=== PATIENT | male | born 1940 | race Caucasian/White ===

== ENCOUNTER 2017-08-17 15:16 | Inpatient (IN) | payer OTHER, MEDICARE ==
[~2017-08-17] VITALS: Ht 182.9 cm; Wt 58.5 kg
[2017-08-17] VITALS (14 sets, daily range): BP systolic 90–191; BP diastolic 56–86; PULSE 77–112; RESP 15–26; TEMP 97.7–98.7; O2SAT 93–100
[2017-08-17] MEDS ORDERED: IOHEXOL 350 MG/ML 10 ML VIAL (for RAD DIAG) IVCONTRAST ONE (15:17)
[2017-08-17] MEDS ORDERED: ETOMIDATE 40 MG/20 ML VIAL ONE (15:19)
[2017-08-17] MEDS ORDERED: ETOMIDATE 20 MG/10 ML VIAL ONE (15:20)
[2017-08-17] MEDS ORDERED: ROCURONIUM INJ 50 MG/5 ML VIAL ONE (15:20)
[2017-08-17] MEDS ORDERED: PROPOFOL 1000 MG/100 ML INJ 100 ML ONE (15:20)
[2017-08-17] MEDS ORDERED: LORazepam 2 MG/ML VIAL ONE ×2 (15:33→15:51)
[2017-08-17] MEDS ORDERED: LIDOCAINE HCL 1% PF 30 ML VIAL ONE (15:43)
[2017-08-17] MEDS ORDERED: LIDOCAINE HCL 2% 100 MG/5 ML SYRINGE ONE (15:43)
[2017-08-17 15:46] LABS: BASOPHIL % 0.5 % (0.0-2.0); EOSINOPHIL # 0.2 TH/MM3 (0-0.4); HEMATOCRIT 53.6 % (39.0-51.0); HEMO FLAGS DIFF FINAL; I-STAT POTASSIUM 3.9 MMOL/L (3.5-4.9); LYMPH % 38.4 % (9.0-44.0); LYMPHOCYTE # 3.8 TH/MM3 (1.0-4.8); MEAN CELL VOLUME 90.6 FL (80.0-100.0); MEAN CORPUSCULAR HEMOGLOBIN 27.8 PG (27.0-34.0); MEAN CORPUSCULAR HGB CONC 30.6 % (32.0-36.0); MONO % 9.2 % (0.0-8.0); NEUT % 49.9 % (16.0-70.0); PLATELET COUNT 205 TH/MM3 (150-450); RED BLOOD COUNT 5.91 MIL/MM3 (4.50-5.90); RED CELL DISTRIBUTION WIDTH 16.4 % (11.6-17.2); WHITE BLOOD COUNT 9.9 TH/MM3 (4.0-11.0)
--- NOTE | 2017-08-17 15:48 | RADRPT ---
EXAM DATE/TIME: 08/17/2017 15:26 [facility] COMPARISON: No previous studies available for comparison. INDICATIONS : Stroke alert; right side weakness. RADIATION DOSE: 29.24 CTDIvol (mGy) MEDICAL HISTORY : Non-responsive. SURGICAL HISTORY : Non-responsive. ENCOUNTER: Initial ACUITY: 1 day PAIN SCALE: Non-responsive LOCATION: Cranial TECHNIQUE: Multiple contiguous axial images were obtained of the head. Using automated exposure control and adjustment of the mA and/or kV according to patient size, radiation dose was kept as low as reasonably achievable to obtain optimal diagnostic quality images. DICOM format image data is av ailable electronically for review and comparison. FINDINGS: Old infarct left parietal occipital region and right orbital frontal region. Negative for an acute hemorrhage. There are no extra-axial fluid collections. Posterior fossa is unremarkable. CONCLUSION: 1. Old stroke, negative for an acute hemorrhage. 2. Findings were called to Dr. Healy at 15:40. Ancelmo Pham MD FACR on August 17, 2017 at 15:41 Board Certified Radiologist. This report was verified electronically.
[2017-08-17 15:55] LABS: APTT (PATIENT) 26.8 SEC (24.3-30.1); INTERNATIONAL NORMALIZED RATIO 1.1 RATIO; PROTHROMBIN TIME - PATIENT 11.9 SEC (9.8-11.6)
--- NOTE | 2017-08-17 16:20 | PD ---
HPI . Stroke alert Chief Complaint: Stroke Alert Time Seen by Provider: 15:19 Travel History International Travel<30 days: No Contact w/Intl Traveler<30days: No History of Present Illness HPI This patient presented to us via [facility] as a stroke alert. History is obtained from his . She reports the acute onset of right arm weakness while he was eating lunch at about 12:30. She states that he dropped his for a couple of times. She suggested that he lay down and take a nap which he did. She states that he then had what appeared to be seizure activity. She states that she became concerned and called her son who suggested to her that she call 911. 911 was then called and the patient was subsequently brought to us for further evaluation. The states that he had previous similar symptoms about 3 years ago. He was treated at an outside facility. She states that they told her that he either had a stroke or TIA. He states that he did have seizure activity at that time as well. PFSH Past Medical History AAA: Yes Cardiovascular Problems: Yes High Cholesterol: Yes Cerebrovascular Accident: Yes Coronary Artery Disease: Yes Diabetes: No Dialysis: No Hypertension: Yes Past Surgical History Abdominal Aneurysm Repair: Yes Cardiac Surgery: Yes Coronary Artery Bypass Graft: Yes Social History Alcohol Use: No Tobacco Use: No Allergies-Medications (Allergen,Severity, Reaction): Coded Allergies: No Known Allergies (Unverified , 08/17/17) Narrative Medication Patient's family reports that he stopped taking all medications a couple weeks ago. Review of Systems ROS Limitations: Unresponsive Physical Exam Narrative GENERAL: Patient is obtunded. He does have a gag reflex and his breathing. SKIN: warm/dry. HEAD: Normocephalic. Atraumatic. EYES: Initially had a gaze preference to the right. He subsequently had a seizure while in radiology and had a gaze preference to the left. ENT: No nasal bleeding or discharge. Mucous membranes pink and moist. NECK: Trachea midline. CARDIOVASCULAR: Regular rate and rhythm. RESPIRATORY: No accessory muscle use. Clear to auscultation. Breath sounds equal bilaterally. GASTROINTESTINAL: Abdomen soft. Nontender. Bowel sounds present. Nondistended. MUSCULOSKELETAL: No obvious deformities. NEUROLOGICAL: Obtunded. We have seen some movement of the left side but no movement on the right side. The patient is unable to follow any commands. PSYCHIATRIC: Unable to assess. Data Data Last Documented VS Vital Signs Date Time Temp Pulse Resp B/P (MAP) Pulse Ox O2 Delivery O2 Flow Rate FiO2 08/17/17 15:35 93 Nasal Cannula 3.00 Orders Orders Etomidate Inj (Amidate Inj) (08/17/17 15:19) Propofol 1000 Mg/100 Ml Inj (Diprivan 10 (08/17/17 15:20) Etomidate Inj (Amidate Inj) (08/17/17 15:20) Rocuronium Inj (Zemuron Inj) (08/17/17 15:20) Diet Npo (08/17/17 Dinner) Activity Bed Rest (08/17/17 ) Electrocardiogram (08/17/17 ) I-Stat Creatinine (08/17/17 15:19) I-Stat Profile (08/17/17 15:19) Prothrombin Time / Inr (Pt) (08/17/17 15:19) Act Partial Throm Time (Ptt) (08/17/17 15:19) Complete Blood Count With Diff (08/17/17 15:19) Fibrinogen (08/17/17 15:19) Creatine Kinase (Cpk) (08/17/17 15:19) Troponin I (08/17/17 15:19) Ua Includes Microscopic (08/17/17 15:19) Type And Screen (08/17/17 15:19) Ct Brain W/O Iv Contrast(Rout) (08/17/17 ) Cta Brain W Iv Contrast W 3d (08/17/17 15:19) Cta Neck W Iv Contrast W 3d (08/17/17 15:19) Consult Neurology (08/17/17 ) Blood Glucose (08/17/17 15:19) Ecg Monitoring (08/17/17 15:19) Neuro Checks Q2HX12,Q4H (08/17/17 15:19) Nursing Bedside Swallow Assess .ONCE (08/17/17 15:19) Iv Access Insert/Monitor (08/17/17 15:19) NPO (08/17/17 15:19) Oximetry (08/17/17 15:19) Oxygen Administration (08/17/17 15:19) Resp Oxygen Romeo C Titrat 1-4 L (08/17/17 15:19) Cath For Specimen (08/17/17 15:19) Lorazepam Inj (Ativan Inj) (08/17/17 15:33) Lidocaine Pf 1% Inj (Xylocaine-Mpf 1% In (08/17/17 15:43) Lidocaine 2% Inj (Xylocaine 2% Inj) (08/17/17 15:43) Lorazepam Inj (Ativan Inj) (08/17/17 15:51) Portable Eeg (08/17/17 ) Iohexol 350 Inj (Omnipaque 350 Inj) (08/17/17 15:17) Admit Order (Ed Use Only) (08/17/17 16:39) Labs Laboratory Tests Test 08/17/17 15:23 White Blood Count 9.9 TH/MM3 Red Blood Count 5.91 MIL/MM3 Hemoglobin 16.4 GM/DL Bedside Hemoglobin 17.7 G/DL Hematocrit 53.6 % Bedside Hematocrit 52.0 % Mean Corpuscular Volume 90.6 FL Mean Corpuscular Hemoglobin 27.8 PG Mean Corpuscular Hemoglobin Concent 30.6 % Red Cell Distribution Width 16.4 % Platelet Count 205 TH/MM3 Mean Platelet Volume 8.8 FL Neutrophils (%) (Auto) 49.9 % Lymphocytes (%) (Auto) 38.4 % Monocytes (%) (Auto) 9.2 % Eosinophils (%) (Auto) 2.0 % Basophils (%) (Auto) 0.5 % Neutrophils # (Auto) 5.0 TH/MM3 Lymphocytes # (Auto) 3.8 TH/MM3 Monocytes # (Auto) 0.9 TH/MM3 Eosinophils # (Auto) 0.2 TH/MM3 Basophils # (Auto) 0.0 TH/MM3 CBC Comment DIFF FINAL Differential Comment Prothrombin Time 11.9 SEC Prothromb Time International Ratio 1.1 RATIO Activated Partial Thromboplast Time 26.8 SEC Fibrinogen 374 mg/dL Bedside Sodium 144 MMOL/L Bedside Potassium 3.9 MMOL/L Bedside Chloride 112 MMOL/L Bedside Blood Urea Nitrogen 34 MG/DL Bedside Creatinine 1.8 MG/DL Bedside Glucose 137 MG/DL Total Creatine Kinase 118 U/L Troponin I 0.02 NG/ML [facility] Medical Decision Making Medical Screen Exam Complete: Yes Emergency Medical Condition: Yes Interpretation(s) EKG shows sinus tachycardia with a rate of 112. He has LVH. He has ST segment depression in the lateral leads. Differential Diagnosis Differential diagnosis includes but is not limited to TIA, CVA, brain tumor, migraine, anxiety Narrative Course This patient presented to us as a stroke alert. Our initial NIH stroke score was > 25. Dr. Mathews was consulted shortly after the patient's arrival. She was here seeing the patient with me shortly thereafter. She does not recommend TPA. CODE STATUS was discussed with the patient's . She states that she is unaware of her 's wishes. She asked us to proceed with aggressive management. The patient had a seizure in CT. The patient became cyanotic during the seizure. He then had sonorous respirations. The decision was made to intubate the patient at that time. CT head>>Old infarct left parietal occipital region and right orbital frontal region. Negative for an acute hemorrhage. CBC Diagram 08/17/17 15:23 I-STAT chemistries are remarkable only for a BUN of 34 and a creatinine of 1.8. Troponin is 0.02. Coags are normal. Critical Care Narrative Aggregate critical care time was 60 minutes. Time to perform other separately billable procedures was not included in the critical care time. My time did not include minutes spent treating any other patients simultaneously or on activities that did not directly contribute to the patient's treatment. The services I provided to this patient were to treat and/or prevent clinically significant deterioration due to strep throat I provided critical care services requiring my management, as noted below: Chart data review, documentation time, medication orders and management, vital sign assessments/reviewing monitor data, ordering and reviewing lab tests, ordering and interpreting/reviewing x-rays and diagnostic studies, care of the patient and discussion of the patient with the admitting physicians Physician Communication Physician Communication Dr. Mathews and Dr. Long Diagnosis Primary Impression: Stroke Qualified Codes: I63.9 - Cerebral infarction, unspecified Admitting Information Admitting Physician Requests: Admit Condition: Serious Cata Healy MD Aug 17, 2017 16:20
--- NOTE | 2017-08-17 16:34 | PD ---
Physical Exam Date Seen by Provider: Aug 17, 2017 Time Seen by Provider: 13:45 Narrative 76-year-old male obtunded, wears dentures. After the risks and benefits were discussed with his the following procedure was performed: INTUBATION: The patient was put in supine position for the procedure. The lower dentures were loose and removed. The upper dentures remained in place. Rapid sequence intubation was initiated by Dr. Molina using 100 milligrams lidocaine, 20 milligrams of etomidate IV and 92 milligrams of succinylcholine IV. The patient was intubated with a 7.5 cuffed endotracheal tube and 22cm at the teeth. Tube placement was confirmed by visualization of the tube and balloon passing through the cords, capnometry and subsequent chest x-ray. Breath sounds were equal and well aerated bilaterally postintubation. No breath sounds over stomach. Patient tolerated procedure well. Data Data Last Documented VS Vital Signs Date Time Temp Pulse Resp B/P (MAP) Pulse Ox O2 Delivery O2 Flow Rate FiO2 08/17/17 16:00 96 100 08/17/17 15:35 Nasal Cannula 3.00 Orders Orders Etomidate Inj (Amidate Inj) (08/17/17 15:19) Propofol 1000 Mg/100 Ml Inj (Diprivan 10 (08/17/17 15:20) Etomidate Inj (Amidate Inj) (08/17/17 15:20) Rocuronium Inj (Zemuron Inj) (08/17/17 15:20) Diet Npo (08/17/17 Dinner) Activity Bed Rest (08/17/17 ) Electrocardiogram (08/17/17 ) I-Stat Creatinine (08/17/17 15:19) I-Stat Profile (08/17/17 15:19) Prothrombin Time / Inr (Pt) (08/17/17 15:19) Act Partial Throm Time (Ptt) (08/17/17 15:19) Complete Blood Count With Diff (08/17/17 15:19) Fibrinogen (08/17/17 15:19) Creatine Kinase (Cpk) (08/17/17 15:19) Troponin I (08/17/17 15:19) Ua Includes Microscopic (08/17/17 15:19) Type And Screen (08/17/17 15:19) Ct Brain W/O Iv Contrast(Rout) (08/17/17 ) Cta Brain W Iv Contrast W 3d (08/17/17 15:19) Cta Neck W Iv Contrast W 3d (08/17/17 15:19) Consult Neurology (08/17/17 ) Blood Glucose (08/17/17 15:19) Ecg Monitoring (08/17/17 15:19) Neuro Checks Q2HX12,Q4H (08/17/17 15:19) Nursing Bedside Swallow Assess .ONCE (08/17/17 15:19) Iv Access Insert/Monitor (08/17/17 15:19) NPO (08/17/17 15:19) Oximetry (08/17/17 15:19) Oxygen Administration (08/17/17 15:19) Resp Oxygen Romeo C Titrat 1-4 L (08/17/17 15:19) Cath For Specimen (08/17/17 15:19) Lorazepam Inj (Ativan Inj) (08/17/17 15:33) Lidocaine Pf 1% Inj (Xylocaine-Mpf 1% In (08/17/17 15:43) Lidocaine 2% Inj (Xylocaine 2% Inj) (08/17/17 15:43) Lorazepam Inj (Ativan Inj) (08/17/17 15:51) Portable Eeg (08/17/17 ) Iohexol 350 Inj (Omnipaque 350 Inj) (08/17/17 15:17) Admit Order (Ed Use Only) (08/17/17 16:39) Labs Laboratory Tests Test 08/17/17 15:23 08/17/17 16:30 White Blood Count 9.9 TH/MM3 Red Blood Count 5.91 MIL/MM3 Hemoglobin 16.4 GM/DL Bedside Hemoglobin 17.7 G/DL Hematocrit 53.6 % Bedside Hematocrit 52.0 % Mean Corpuscular Volume 90.6 FL Mean Corpuscular Hemoglobin 27.8 PG Mean Corpuscular Hemoglobin Concent 30.6 % Red Cell Distribution Width 16.4 % Platelet Count 205 TH/MM3 Mean Platelet Volume 8.8 FL Neutrophils (%) (Auto) 49.9 % Lymphocytes (%) (Auto) 38.4 % Monocytes (%) (Auto) 9.2 % Eosinophils (%) (Auto) 2.0 % Basophils (%) (Auto) 0.5 % Neutrophils # (Auto) 5.0 TH/MM3 Lymphocytes # (Auto) 3.8 TH/MM3 Monocytes # (Auto) 0.9 TH/MM3 Eosinophils # (Auto) 0.2 TH/MM3 Basophils # (Auto) 0.0 TH/MM3 CBC Comment DIFF FINAL Differential Comment Prothrombin Time 11.9 SEC Prothromb Time International Ratio 1.1 RATIO Activated Partial Thromboplast Time 26.8 SEC Fibrinogen 374 mg/dL Bedside Sodium 144 MMOL/L Bedside Potassium 3.9 MMOL/L Bedside Chloride 112 MMOL/L Bedside Blood Urea Nitrogen 34 MG/DL Bedside Creatinine 1.8 MG/DL Bedside Glucose 137 MG/DL Total Creatine Kinase 118 U/L Troponin I 0.02 NG/ML MDM Supervised Visit with TUYET: Yes Cecilia Hernandez Aug 17, 2017 16:34
--- NOTE | 2017-08-17 17:01 | RADRPT ---
EXAM DATE/TIME: 08/17/2017 16:06 [facility] COMPARISON: No previous studies available for comparison. INDICATIONS : Stroke Alert-Right sided weakness. IV CONTRAST: 74 cc Omnipaque 350 (iohexol) IV RADIATION DOSE: 25.37 CTDIvol (mGy) ; Combined studies MEDICAL HISTORY : Non-responsive. SURGICAL HISTORY : Non-responsive. ENCOUNTER: Initial ACUITY: 1 day PAIN SCALE: Non-responsive LOCATION: Bilateral cranial TECHNIQUE: Volumetric scanning was performed using a multi-row detector CT scanner. The data was post processed with a variety of visualization algorithms including full volume maximum intensity projection, multi -planar sliding thin slab reformation, curved planar reformation, and surface rendering techniques. Using automated exposure control and adjustment of the mA and/or kV according to patient size, radiat ion dose was kept as low as reasonably achievable to obtain optimal diagnostic quality images. DICO M format image data is available electronically for review and comparison. FINDINGS: Anterior circulation: Right internal carotid artery is occluded just beyond the origin. There are pos tsurgical features noted in the left carotid bulb. The left carotid artery is patent to the skull bas e. The left internal carotid intracranial segment is diffusely calcified with tandem at least moderat e stenoses. Flow extends to the middle and anterior cerebral arteries bilaterally via a patent anteri or communicating artery. The anterior and middle cerebral artery branches are patent without signific ant flow-limiting stenosis or large vessel occlusion. No evidence for aneurysm or vascular malformati on. Posterior circulation: The right vertebral artery is occluded at the origin and reconstitutes distall y. Left subclavian artery is occluded at the origin with reconstitution of the subclavian artery like ly via the left vertebral artery. Left vertebral artery is patent. The distal vertebral arteries are symmetrical with flow extending to the basilar artery and posterior cerebral arteries bilaterally. Th ere are patent bilateral posterior indicating arteries. There is moderate stenosis of the proximal ri ght [employer]. is no evidence for aneurysm, vessel truncation or stenosis, and no evidence for vascular mal formation. IMPRESSION: 1. Occluded right internal carotid artery with anterior circulation flow via the left carotid artery. The intracranial left carotid artery is heavily calcified with at least moderate tandem stenoses. 2. 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 Left vertebral artery is patent to the origin and likely reconstitutes the left subclavian artery. Posterior communicating arteries are pat ent bilaterally and flow to the posterior circulation is likely via the anterior circulation flow whi ch is again dependent on the left carotid artery. Therefore, the intracranial circulation is nearly e ntirely dependent on the left internal carotid artery which is heavily calcified beyond the cervical segment. 3. Moderate focal stenosis of the proximal right posterior cerebral artery. 4. Findings were personally discussed with . Jonathon Pardo MD on August 17, 2017 at 16:36 Board Certified Radiologist. This report was verified electronically.
--- NOTE | 2017-08-17 17:04 | RADRPT ---
EXAM DATE/TIME: 08/17/2017 16:06 [facility] COMPARISON: CT BRAIN W/O CONTRAST, August 17, 2017, 15:26. INDICATIONS : Stroke Alert-confusion. IV CONTRAST: 74 cc Omnipaque 350 (iohexol) IV RADIATION DOSE: 25.37 CTDIvol (mGy) ; Combined studies MEDICAL HISTORY : Non-responsive. SURGICAL HISTORY : Non-responsive. ENCOUNTER: Initial ACUITY: 1 day PAIN SCALE: Non-responsive LOCATION: Bilateral neck region. Elevated flow velocities and ICA/CCA ratios have been found to correlate with increased degrees of vessel stenosis, calculated as percentage of diameter relative to a normal segment of distal ICA/CCA. TECHNIQUE: Volumetric scanning was performed using a multirow detector CT scanner. The data was post processed with a variety of visualization algorithms including full-volume maximum intensity projection, multip lanar sliding thin-slab reformation, curved-planar reformation, and surface-rendering techniques. Us ing automated exposure control and adjustment of the mA and/or kV according to patient size, radiatio n dose was kept as low as reasonably achievable to obtain optimal diagnostic quality images. DICOM f ormat image data is available electronically for review and comparison. FINDINGS: AORTIC ARCH: The aortic arch is mildly aneurysmal measuring 3.1 cm. There is bovine branching of the great vessels from the arch. 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 There is reconstitut ion of the left subclavian likely from the left vertebral. RIGHT CAROTID: The common carotid is widely patent. There is abrupt occlusion of the internal carotid at its origin. It remains occluded throughout its course. There is reconstitution of the supraclinoid carotid from the left. LEFT CAROTID: The left common carotid artery is widely patent. There is moderate atherosclerotic plaquing at the bi furcation. This results in a mild degree of stenosis in the origin of the left internal carotid. It i s estimated to be less than 10% by NASCET criteria. The more cephalad portion of left internal caroti d is widely patent. VERTEBRALS: The right vertebral artery is occluded at its origin. It reconstitutes in the mid neck. The left vert ebral is patent throughout its course aerated again, it should be noted there is occlusion of the lef t subclavian origin as such flow within the left vertebral is likely retrograde. CONCLUSION: 1. 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 2. 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 3. 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 4. The left vertebral artery is patent. Flow within the left vertebral is likely retrograde. 5. Plaquing but no hemodynamically significant stenosis seen at the left carotid bifurcation. 6. Reconstitution of the intracranial circulation on the right via the three affiliated of Ag. Chemo Pham MD on August 17, 2017 at 16:57 Board Certified Radiologist. This report was verified electronically.
[2017-08-17] MEDS ORDERED: fentaNYL DRIP 250 ML IV PRN (17:15)
[2017-08-17] MEDS ORDERED: CHLORHEXIDINE GLUCONATE 2 % 1 PACK (2 CLOTHS) TOP PRN ×2 (17:15→17:30)
[2017-08-17] MEDS ORDERED: GLUCAGON 1 MG/ML VIAL OTHER PRN ×3 (17:15→17:30)
[2017-08-17] MEDS ORDERED: MAGNESIUM HYDROXIDE SUSP 30 ML CUP PO PRN ×2 (17:15→17:30)
[2017-08-17] MEDS ORDERED: ONDANSETRON HCL 4 MG/2 ML VIAL IV PUSH PRN ×2 (17:15→17:30)
[2017-08-17] MEDS ORDERED: SENNOSIDES 8.6 MG TAB PO PRN ×2 (17:15→17:30)
[2017-08-17] MEDS ORDERED: BISACODYL 10 MG SUPP RECTAL PRN ×2 (17:15→17:30)
[2017-08-17] MEDS ORDERED: SODIUM CHLORIDE 0.9% FLUSH 10 ML FLUSH IV FLUSH PRN (17:15)
[2017-08-17] MEDS ORDERED: RESP: ALBUTEROL 2.5 MG/3 ML NEB (PRN) INH ×2 (17:15→17:30)
[2017-08-17] MEDS ORDERED: DEXTROSE 50% IN WATER 50 ML VIAL(D50) IV PUSH PRN ×2 (17:15→17:30)
[2017-08-17] MEDS ORDERED: MISCELLANEOUS NURSING INFORMATION XX SCH ×2 (17:15→17:30)
[2017-08-17] MEDS ORDERED: LACTULOSE SYRUP 20 GM/30 ML CUP PO PRN ×2 (17:15→17:30)
[2017-08-17 17:17] LABS: BLOOD, URINE SMALL (NEG); GLUCOSE,URINE NEG (NEG); KETONE, URINE NEG (NEG); NITRITE,URINE NEG (NEG); SQUAMOUS EPITHELIAL CELL URINE 1 /hpf (0-5); URINE COLOR YELLOW (YELLW/STRAW)
[2017-08-17 17:20] LABS: BLOOD GAS BASE EXCESS -11.5 mmol/L (-2-2); BLOOD GAS CARBOXYHEMOGLOBIN 0.6 % (0-4); BLOOD GAS HCO3 15 mmol/L (22-26); BLOOD GAS METHEMOGLOBIN 0.9 % (0-2); BLOOD GAS O2 HGB SATURATION 97 % (90-100); BLOOD GAS PCO2 39 mmHg (38-42); BLOOD GAS PO2 173 mmHG (61-120); BLOOD GAS TOTAL HGB 14.4 G/DL (12.0-16.0); TEMP CORR TO 98.6
[2017-08-17 17:21] LABS: CRITICAL VALUE YES; DRAW SITE RT RADIAL; FIO2 50 %; NUMBER OF ARTERIAL PUNCTURES 1; OXYGEN DEVICE VENTILATOR; STAT YES; ULNAR PULSE Y; VENT SETTINGS PRVC/AC/VT500/R15/I1
--- NOTE | 2017-08-17 17:21 | RADRPT ---
EXAM DATE/TIME: 08/17/2017 17:05 [facility] COMPARISON: No previous studies available for comparison. INDICATIONS : Post intubation. MEDICAL HISTORY : Nonresponsive. SURGICAL HISTORY : CABG. ENCOUNTER: Initial ACUITY: 1 day PAIN SCORE: Non-responsive. LOCATION: Bilateral chest FINDINGS: ET tube and nasogastric tube in good position. Sternal wires from previous bypass are noted. Lungs are clear. Heart and pulmonary vascularity are normal. CONCLUSION: Support apparatus in good position. Lungs are clear. Ancelmo Pham MD FACR on August 17, 2017 at 17:16 Board Certified Radiologist. This report was verified electronically.
[2017-08-17] MEDS ORDERED: niCARdipine INJ 25 MG in SODIUM CHLOR 0.9% 250 ML INJ 250 ML IV PRN (17:30)
[2017-08-17] MEDS ORDERED: LORazepam 2 MG/ML VIAL IV PUSH PRN (17:30)
[2017-08-17] MEDS ORDERED: SODIUM CHLOR 0.9% 1000 ML INJ 1,000 ML IV ONE (17:30)
[2017-08-17] MEDS ORDERED: LABETALOL HCL 100 MG/20 ML VIAL IV PUSH PRN (17:30)
--- NOTE | 2017-08-17 17:38 | HHI.HP ---
[facility] Critical Care Medicine Primary Care Physician Stuart Lopez M.D. Admission Diagnosis stroke Diagnosis: (1) Acute respiratory failure Diagnosis: Principal (2) Seizure Diagnosis: Principal (3) Ascending aortic aneurysm Diagnosis: Secondary (4) Dyslipidemia Diagnosis: Principal (5) Coronary artery disease Diagnosis: Principal (6) Acute kidney injury Diagnosis: Principal (7) CVA (cerebral vascular accident) Diagnosis: Principal Chief Complaint: Respiratory failure, seizure, old left parietal occipital, right orbital frontal CVA with with a right internal carotid, vertebral and left subclavian occlusions Travel History International Travel<30 Days: No Contact w/Intl Traveler <30 Da: No Traveled to Known Affected Are: No History of Present Illness This is a 76-year-old male. Date of admission 08/17/2017. Past medical history includes hypertension, dyslipidemia, history of CVA and seizure disorder NOS. Patient presents to [facility] the following history. Over the past several weeks, patient has stopped on his own. All of his home medications according to because "he did not like how it made him feel". We currently do not have a listing of these medications. Irregardless, at 12: 30 PM this afternoon patient was having lunch when he had trouble striking his work on his right side. He laid down to rest when he is noted to have a seizure by his . E VAC was initiated and patient received 2 mg Ativan the field in route here. Patient received have another seizure while receiving CT the brain and was emergently intubated using etomidate and rocuronium CT brain revealed old left parieto-occipital and right orbital frontal CVA. 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 The RCA is intracerebral flow from the left internal carotid artery. There is also proximal right [employer]CRETE [employer]ER stenosis. Dr. Mathews did not recommend alteplase therapy. I discussed with neurology possibility of any further intervention such as stent retrieval/thromboembolectomy. She did not recommend this at this time. Recommending MRI brain and loading with levetiracetam for seizure activity. EEG will be performed urgently. At the present time, patient's systolic blood pressure is around 95. Patient spontaneously moving left upper and lower extremity. The right upper and lower extremities flaccid. Noted a past medical history is obtained from [id number]. is currently distraught and unable to provide meaningful information. Patient has not been to this facility before. Review of Systems ROS Limitations: Intubated Past Family Social History Allergies: Coded Allergies: No Known Allergies (Unverified , 08/17/17) Past Medical History Not inclusive includes prior CVA Seizure disorder NOS Hypertension Dyslipidemia Coronary artery disease Past Surgical History CABG 2 - 1 in [facility]. 1 in [facility] Bovine aortic arch/AAA repair # History of pneumothorax Upper and lower dentures Reported Medications Unknown. Patient has not taken medications for the past several weeks according to Active Ordered Medications Reviewed in EMR Family History Patient has 1 sister Naheed with no medical issues. Mother and father is unknown to [id number]. Social History Quit drinking alcohol years ago. Quit tobacco 5 years ago. Unknown total tobacco history pack years. No IV drug use. Physical Exam Vital Signs Vital Signs Date Time Temp Pulse Resp B/P (MAP) Pulse Ox O2 Delivery O2 Flow Rate FiO2 08/17/17 16:00 96 100 08/17/17 15:49 100 50 08/17/17 15:35 93 Nasal Cannula 3.00 Physical Exam GENERAL: 76-year-old male, critically ill currently orotracheally intubated SKIN: Warm and dry. No rash HEAD: Atraumatic. Normocephalic. EYES: Pupils equal and round about 3 mm bilaterally and reactive to 2 mm. No scleral icterus. No injection or drainage. ENT: No nasal bleeding or discharge. Mucous membranes pink and moist. Patient' s upper dentures remain in place. Lower dentures have been removed. No thrush appreciated NECK: Trachea midline. No JVD. Positive carotid bruit on the left 4/6. No carotid bruit in the right CARDIOVASCULAR: Regular rate and rhythm. S1, S2 no S4. 2/6 systolic murmur patient left lower sternal border. Midsternal scar from prior CABG noted RESPIRATORY: No accessory muscle use. Clear to auscultation. Breath sounds equal bilaterally. GASTROINTESTINAL: Abdomen soft, non-tender, scaphoid. Hypoactive bowel sounds appreciated MUSCULOSKELETAL: Extremities without noted in peripheral edema. No obvious deformities. NEUROLOGICAL: No facial droop. Patient withdraws to pain and spontaneously moves left upper and lower extremity. No withdrawal to pain or movement right upper lower extremity. Cerebellar/gait was not assessed Laboratory Laboratory Tests Test 08/17/17 15:23 08/17/17 16:30 08/17/17 17:05 White Blood Count 9.9 Red Blood Count 5.91 Hemoglobin 16.4 Bedside Hemoglobin 17.7 Hematocrit 53.6 Bedside Hematocrit 52.0 Mean Corpuscular Volume 90.6 Mean Corpuscular Hemoglobin 27.8 Mean Corpuscular Hemoglobin Concent 30.6 Red Cell Distribution Width 16.4 Platelet Count 205 Mean Platelet Volume 8.8 Neutrophils (%) (Auto) 49.9 Lymphocytes (%) (Auto) 38.4 Monocytes (%) (Auto) 9.2 Eosinophils (%) (Auto) 2.0 Basophils (%) (Auto) 0.5 Neutrophils # (Auto) 5.0 Lymphocytes # (Auto) 3.8 Monocytes # (Auto) 0.9 Eosinophils # (Auto) 0.2 Basophils # (Auto) 0.0 CBC Comment DIFF FINAL Differential Comment Prothrombin Time 11.9 Prothromb Time International Ratio 1.1 Activated Partial Thromboplast Time 26.8 Fibrinogen 374 Bedside Sodium 144 Bedside Potassium 3.9 Bedside Chloride 112 Bedside Blood Urea Nitrogen 34 Bedside Creatinine 1.8 Bedside Glucose 137 Total Creatine Kinase 118 Troponin I 0.02 Urine Color YELLOW Urine Turbidity CLEAR Urine pH 6.0 Urine Specific Yoder 1.025 Urine Protein 30 Urine Glucose (UA) NEG Urine Ketones NEG Urine Occult Blood SMALL Urine Nitrite NEG Urine Bilirubin NEG Urine Urobilinogen LESS THAN 2.0 Urine Leukocyte Esterase NEG Urine RBC 5 Urine WBC 1 Urine Squamous Epithelial Cells 1 Blood Gas Puncture Site RT RADIAL Blood Gas Patient Temperature 98.6 Blood Gas HCO3 15 Blood Gas Base Excess -11.5 Blood Gas Oxygen Saturation 97 Arterial Blood pH 7.20 Arterial Blood Partial Pressure CO2 39 Arterial Blood Partial Pressure O2 173 Arterial Blood Oxygen Content 20.0 Arterial Blood Carboxyhemoglobin 0.6 Arterial Blood Methemoglobin 0.9 Blood Gas Hemoglobin 14.4 Oxygen Delivery Device VENTILATOR Blood Gas Ventilator Setting PRVC/AC/VT500/R15/I1 Blood Gas Inspired Oxygen 50 Result Diagram: 08/17/17 1523 Imaging Last Impressions Head CT 08/17/17 0000 Signed Impressions: Service Date/Time: Thursday, August 17, 2017 15:26 - CONCLUSION: 1. Old stroke, negative for an acute hemorrhage. 2. Findings were called to Dr. Healy at 15:40. Ancelmo Pham MD FACR Caprini VTE Risk Assessment Caprini VTE Risk Assessment: Mod/High Risk (score >= 2) Caprini Risk Assessment Model Point Value = 1 Point Value = 2 Point Value = 3 Point Value = 5 Age 41-60 Minor surgery BMI > 25 kg/m2 Swollen legs Varicose veins or History of unexplained or recurrent spontaneous Oral contraceptives or hormone replacement Sepsis (< 1 month) Serious lung disease, including pneumonia (< 1 month) Abnormal pulmonary function Acute myocardial infarction Congestive heart failure (< 1 month) History of inflammatory bowel disease Medical patient at bed rest Age 61-74 Arthroscopic surgery Major open surgery (> 45 min) Laparoscopic surgery (> 45 min) Malignancy Confined to bed (> 72 hours) Immobilizing plaster cast Central venous access Age >= 75 History of VTE Family history of VTE Factor V Leiden Prothrombin [id number] Lupus anticoagulant Anticardiolipin antibodies Elevated serum homocysteine Heparin-induced thrombocytopenia Other congenital or acquired thrombophilia Stroke (< 1 month) Elective arthroplasty Hip, pelvis, or leg fracture Acute spinal cord injury (< 1 month) Prophylaxis Regimen Total Risk Factor Score Risk Level Prophylaxis Regimen 0-1 Low Early ambulation 2 Moderate Order ONE of the following: *Sequential Compression Device (SCD) *Heparin 5000 units SQ BID 3-4 Higher Order ONE of the following medications: *Heparin 5000 units SQ TID *Enoxaparin/Lovenox 40 mg SQ daily (WT < 150 kg, CrCl > 30 mL/min) *Enoxaparin/Lovenox 30 mg SQ daily (WT < 150 kg, CrCl > 10-29 mL/min) *Enoxaparin/Lovenox 30 mg SQ BID (WT < 150 kg, CrCl > 30 mL/min) AND/OR *Sequential Compression Device (SCD) 5 or more Highest Order ONE of the following medications: *Heparin 5000 units SQ TID (Preferred with Epidurals) *Enoxaparin/Lovenox 40 mg SQ daily (WT < 150 kg, CrCl > 30 mL/min) *Enoxaparin/Lovenox 30 mg SQ daily (WT < 150 kg, CrCl > 10-29 mL/min) *Enoxaparin/Lovenox 30 mg SQ BID (WT < 150 kg, CrCl > 30 mL/min) AND *Sequential Compression Device (SCD) Assessment and Plan Assessment and Plan Neuro/Psych: Seizure disorder NOS Old left parietal-occipital/right orbital frontal CVA rule out acute intracranial event CT brain 08/17 revealed a left parietal-occipital/right orbital frontal CVA. CTA brain/neck revealed occluded right RCA with intracerebral flow on the left, left carotid artery with moderate stenosis. Right vertebral left subclavian occluded. Proximal right CONCR[employer]E [employer]ER stenosis. Posterior circulation with patent flow likely from anterior left carotid source. Currently off all sedation Discussed with Dr. Mathews - if tolerates load with levetiracetam 500 mg 1 followed by 500 mg IV twice a day Did not recommend any intervention for right ICA, left subclavian right vertebral occlusions including TPA or stent retrieval Lorazepam when necessary breakthrough seizures Written for propofol/fentanyl drips for sedation/analgesia while intubated Goal of RA SS -2 Daily sedation vacation MRI to rule out acute CVA/EEG rule out seizure currently pending Seizure precautions Dr. 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 Normal saline at 84 cc an hour Lipid panel currently pending Currently not requiring additional anti-hypertensives and/or vasopressors at the present time EKG revealed ST depression in the inferior lateral leads. Initial troponin 0.02. Cycle troponins every 6 hours 2 Restart atorvastatin at 10 mg daily See neuro for stenosis as above. Discussed with neurology. Did not recommend intervention with IR due to likely chronicity of occlusions Resp: Acute respiratory failure secondary to altered mental status PRVC 15/500/ Ventilator bundle Albuterol/ipratropium aerosols every 6 hours with albuterol aerosols every 2 hours when necessary dyspnea Spontaneous breathing trials when indicated GI: Patient is currently nothing by mouth NGT to LIWS Pantoprazole for GI prophylaxis Docusate sodium/senna 1 tablet twice a day for bowel regimen : Jerome catheter be exchanged, to condom catheter Endo: Sliding-scale insulin with Accu-Cheks to maintain euglycemia/low regimen with Accu-Cheks every 6 hours Novulin R Check TSH and hemoglobin A1c Renal: Acute kidney injury Unknown if acute or chronic. Check renal ultrasound Urine electrolytes and eosinophils Avoid nephrotoxic agents Monitor urine output Accurate I's and O's Heme: CBC essentially within normal limits Coags within normal limits Follow-up CBC in a.m. ID: Monitor for infection MSK: Osteoporosis/osteoarthritis PT/OT evaluate and treat FEN: Replace electrolytes as clinically indicated Access - Utilize peripheral IV. Central line if indicated Prophylaxis - GI - pantoprazole - DVT - SCD/enoxaparin Critical Care: The total critical care time was 55 minutes. Time to perform other separately billable procedures was not included in the critical care time. Code Status Full code Discussed Condition With Dr. Healy/ED physician. [id number] at bedside. Care plan discussed and all questions answered Problem Qualifiers (1) Acute respiratory failure: Qualified Codes: J96.00 - Acute respiratory failure, unspecified whether with hypoxia or hypercapnia (2) Coronary artery disease: Qualified Codes: I25.10 - Atherosclerotic heart disease of [place] coronary artery without angina pectoris (3) CVA (cerebral vascular accident): Qualified Codes: I63.211 - Cerebral infarction due to unspecified occlusion or stenosis of right vertebral arteries Jc Zepeda MD Aug 17, 2017 17:38
[2017-08-17] MEDS ORDERED: ARTIFICIAL TEARS OPTH SOLN 15 ML BTL EACH EYE SCH (18:00)
[2017-08-17] MEDS: ARTIFICIAL TEARS OPTH SOLN 15 ML BTL EACH EYE SCH (18:00)
[2017-08-17] MEDS: INSULIN NovoLIN REGULAR SUPPLEMENTAL SCALE SQ SCH (18:00)
[2017-08-17] MEDS ORDERED: fentaNYL 2,500 MCG/NS 250 ML IV PRN (18:00)
[2017-08-17] MEDS: PROPOFOL 1000 MG/100 ML INJ 100 ML IV PRN (18:00)
[2017-08-17] MEDS ORDERED: INSULIN NovoLIN REGULAR SUPPLEMENTAL SCALE SQ SCH (18:00)
[2017-08-17] MEDS ORDERED: ENOXAPARIN SODIUM 30 MG/0.3 ML SYRINGE SQ SCH (18:00)
[2017-08-17] MEDS ORDERED: levETIRAcetam INJ 500 MG in SODIUM CHLORIDE 0.9% INJ 100 ML IV ONE (18:00)
[2017-08-17] MEDS ORDERED: SODIUM CHLOR 0.9% 1000 ML INJ 1,000 ML IV SCH (18:00)
--- NOTE | 2017-08-17 18:02 | MB ---
cc: JAVIER STEVENS M.D. DATE OF CONSULTATION: 08/17/2017 REASON FOR CONSULTATION: Stroke alert. DATE OF : 1940, 76 HISTORY OF PRESENT ILLNESS: The patient was brought in as a stroke alert, last seen normal 30 minutes prior to presentation, found to have some right-sided deficits, and NIH of 25 I am told by hospital staff. He became totally obtunded and apparently while in CT had a seizure, was given some Ativan and was found also to be hypotensive. He was intubated in the trauma suite, as I am trying to examine him, however, he has been paralyzed with paralytics. There is no meaningful exam at this point in time, however, staff told he that he was initially right hemiparetic and then became totally obtunded. PAST MEDICAL HISTORY He has some type of a bovine heart valve I am told, history of possible TIAs, strokes in the past, possible hypertension. MEDICATIONS There is no list. His states that he stopped his medicine about two months ago on his own. SOCIAL HISTORY: Apparently lives with his locally. PHYSICAL EXAMINATION: Vitals: Oximetry 93, O2 at 3 liters. On admission when I saw him in the trauma suite, the systolic was 75. He was given some fluid bolus, went up into the 90s. He is intubated, paralyzed, pinpoint, nonreactive pupils, flaccid. He does not withdraw due to pain, paralyzed. Unable to do exam. IMAGING STUDIES: CT scan of the head did show he has had some old strokes, apparently in the left parieto-occipital region and the right frontal as well, but nothing acute, no bleeding. He is now in the radiology suite for CTA and [place] of Ag and carotids. LABORATORY DATA: Hemoglobin 17.7, hematocrit 53.6, white count 9.9, platelet count 205,000. Coag panel, PT is 11.9, chloride 112, sodium 144, BUN 34, creatinine 1.8, glucose 137. Troponin 0.02. IMPRESSION: The patient is a 76 year-old man with probable stroke, at first noted to have right hemiparesis, seizure at onset. RECOMMENDATIONS: He will undergo a CT and [place] of Ag, carotids. However, given his high NIH stroke scale and seizure at onset, TPA is not indicated at this point in time. Depending on what is found with the CTA, if they think there is an embolus then possible embolectomy can be performed if indicated and recommended by the interventional radiologist. At this point in time, I would recommend a rectal aspirin. I would load him with some Cerebyx, undergo an MRI of the brain when stable, 2-D echocardiogram, DVT prophylaxis with Lovenox, GI prophylaxis with a proton pump inhibitor. Check a lipid panel. Permissible hypertension, try to increase his systolic blood pressure at least past over 120 if possible. Depending on findings, further recommendations will be made accordingly. MD NIELS Garcia/MATTHEW /4:14 PM /5:25 PM
[2017-08-17] MEDS: SODIUM CHLOR 0.9% 1000 ML INJ 1,000 ML IV SCH (18:05)
[2017-08-17] MEDS ORDERED: CHLORHEXIDINE 0.12% (ORAL KIT) 15 ML CUP MT SCH (20:00)
[2017-08-17] MEDS: CHLORHEXIDINE 0.12% (ORAL KIT) 15 ML CUP MT SCH (20:28)
[2017-08-17] MEDS: SODIUM CHLORIDE 0.9% FLUSH 10 ML FLUSH IV FLUSH SCH (20:28)
[2017-08-17] MEDS: DOCUSATE SODIUM 50 MG/SENNA 8.6 MG TAB PO SCH (20:29)
[2017-08-17] MEDS: RESP: ALBUTEROL 2.5 MG/IPRATROPIUM 0.5 MG NEB (SCH) INH (20:51)
[2017-08-17] MEDS ORDERED: INSULIN ASPART SUPPLEMENTAL SCALE SQ SCH (21:00)
[2017-08-17] MEDS ORDERED: SODIUM CHLORIDE 0.9% FLUSH 10 ML FLUSH IV FLUSH SCH (21:00)
[2017-08-17] MEDS ORDERED: ATORVASTATIN 10 MG TAB PO SCH (21:00)
[2017-08-17] MEDS ORDERED: DOCUSATE SODIUM 50 MG/SENNA 8.6 MG TAB PO SCH (21:00)
[2017-08-17] MEDS ORDERED: RESP: ALBUTEROL 2.5 MG/IPRATROPIUM 0.5 MG NEB (SCH) INH (22:00)
[2017-08-18] VITALS (12 sets, daily range): BP systolic 100–109; BP diastolic 60–70; PULSE 64–88; RESP 14–22; TEMP 97.5–98.4; O2SAT 93–100
[2017-08-18] MEDS: SODIUM CHLOR 0.9% 1000 ML INJ 1,000 ML IV SCH ×2 (00:13→13:54)
[2017-08-18 00:20] LABS: ALCOHOL LESS THAN 3 MG/DL (0-5)
[2017-08-18] MEDS: RESP: ALBUTEROL 2.5 MG/IPRATROPIUM 0.5 MG NEB (SCH) INH ×4 (02:57→21:24)
[2017-08-18] MEDS: PROPOFOL 1000 MG/100 ML INJ 100 ML IV PRN ×3 (03:49→22:10)
[2017-08-18 03:58] LABS: AUTOMATED NEUTROPHIL # 4.4 TH/MM3 (1.8-7.7); BASOPHIL % 0.4 % (0.0-2.0); EOSINOPHIL # 0.1 TH/MM3 (0-0.4); EOSINOPHIL % 0.8 % (0.0-4.0); HEMATOCRIT 44.4 % (39.0-51.0); HEMO FLAGS DIFF FINAL; LYMPH % 25.5 % (9.0-44.0); LYMPHOCYTE # 1.8 TH/MM3 (1.0-4.8); MEAN CELL VOLUME 86.8 FL (80.0-100.0); MEAN CORPUSCULAR HEMOGLOBIN 27.4 PG (27.0-34.0); MEAN CORPUSCULAR HGB CONC 31.5 % (32.0-36.0); MONO % 10.7 % (0.0-8.0); NEUT % 62.6 % (16.0-70.0); PLATELET COUNT 143 TH/MM3 (150-450); RED BLOOD COUNT 5.11 MIL/MM3 (4.50-5.90); RED CELL DISTRIBUTION WIDTH 15.6 % (11.6-17.2); WHITE BLOOD COUNT 7.1 TH/MM3 (4.0-11.0)
[2017-08-18] MEDS ORDERED: CHLORHEXIDINE GLUCONATE 2 % 1 PACK (2 CLOTHS) TOP SCH (04:00)
[2017-08-18] MEDS: CHLORHEXIDINE GLUCONATE 2 % 1 PACK (2 CLOTHS) TOP SCH (04:00)
[2017-08-18 04:06] LABS: APTT (PATIENT) 29.9 SEC (24.3-30.1); PROTHROMBIN TIME - PATIENT 11.4 SEC (9.8-11.6)
[2017-08-18 04:25] LABS: BICARBONATE 26.2 MEQ/L (21.0-32.0); CALCIUM-PROTEIN CORRECTED 8.1 MG/DL (8.5-10.1); HDL CHOLESTEROL 36.1 MG/DL (40.0-60.0); MAGNESIUM 2.1 MG/DL (1.5-2.5); POTASSIUM 3.9 MEQ/L (3.5-5.1); TOTAL BILIRUBIN ADULT 0.5 MG/DL (0.2-1.0)
[2017-08-18] MEDS: INSULIN NovoLIN REGULAR SUPPLEMENTAL SCALE SQ SCH ×4 (05:48→18:00)
[2017-08-18] MEDS: levETIRAcetam INJ 500 MG in SODIUM CHLORIDE 0.9% INJ 100 ML IV SCH ×2 (06:10→18:00)
--- NOTE | 2017-08-18 07:54 | EKG ---
Date Performed: 08/17/2017 Time Performed: 16:29:08 PTAGE: 76 years EKG: SINUS TACHYCARDIA BORDERLINE RIGHT AXIS DEVIATION POSSIBLE RIGHT VENTRICULAR CONDUCTION DEL AY MARKED ST DEPRESSION, CONSIDER SUBENDOCARDIAL INJURY ABNORMAL ECG NO PREVIOUS TRACING DOCTOR: Marya Mae Interpretating Date/Time 08/18/2017 07:52:45
[2017-08-18] MEDS: CHLORHEXIDINE 0.12% (ORAL KIT) 15 ML CUP MT SCH ×2 (08:00→22:01)
--- NOTE | 2017-08-18 08:43 | MB ---
cc: REX URBANO M.D. DATE OF CONSULTATION 08/18/2017 REASON FOR CONSULTATION Evaluation of troponin. HISTORY OF PRESENT ILLNESS Tony Block is a 76-year-old man known to my partner Dr. Gaston. Dr. Gaston has seen him in November, February and May. The patient has known coronary artery disease. He states that he had a bypass surgery seven years ago and a second bypass three years ago but I do not have records of the bypasses. He had a workup by Dr. Gaston for angina. His nuclear stress test showed a moderate to large inferolateral defect with partial redistribution. Carotid Doppler study showed occlusion of the right internal carotid artery and biphasic flow in the left vertebral artery. He was strongly advised to start antianginal and statin medication. He refused and stopped his medications and despite three separate visits with Dr. Gaston was not compliant with treatment recommendations. The patient is now on a ventilator so I cannot obtain any history from him. Apparently had a seizure and brought in with a right upper and lower extremities being flaccid with suspected stroke. MEDICATIONS The only medication apparently the patient is taking on the med list from May was aspirin. He had been tried on a beta-mitra, nitrates and statin therapy but, as mentioned, he refused to take it. Report notes that he has a history of bipolar disease. PAST MEDICAL HISTORY 1. Hypertension. 2. Bipolar disease. 3. Chronic ischemic heart disease. 4. Prior CHF. 5. Coronary artery disease. 6. Depression. 7. Restless leg syndrome. 8. Skin cancers. PAST SURGICAL HISTORY 1. Bypass surgery, as described above. 2. Colonoscopy. ALLERGIES None known. FAMILY HISTORY Noncontributory. SOCIAL HISTORY Smoked from age 16 to age 69, one-pack per day. PHYSICAL EXAMINATION GENERAL: A somewhat thin white male currently on ventilator, nonresponsive at this time. VITAL SIGNS: Blood pressure is 109/70. He is sinus rhythm at 101 beats per minute. HEENT: Exam unremarkable. NECK: Notable for a loud left carotid bruit. CHEST: Mostly clear anteriorly. CARDIAC EXAM: S1-S2, regular rate and rhythm. A 1/6 systolic ejection murmur. ABDOMEN: Soft. EXTREMITIES: Absent pulses in the left arm. The patient is known to have occlusion of the left vertebral artery. Femoral pulses are strong. The pedal pulses are diminished. Left carotid has plaquing but not hemodynamically significant. The right internal carotid artery is occluded at its origin. The right vertebral artery was occluded at its origin. LABORATORY DATA Hematocrit of 44.4, platelet count 143,000. Creatinine is 1.62. Troponin has gone up to 24. Cholesterol is 169, HDL 36, LDL 104. EKG Sinus rhythm. Prior inferior infarct, ST-T wave changes compatible with ischemia. Incomplete right bundle branch block. He had ST-T wave changes suggestive of ischemia on his three prior visits to the office. IMPRESSION This is an extremely noncompliant 76-year-old man with severe coronary, peripheral and cerebrovascular disease. He has refused any medical treatment, has refusing any interventions for his coronary disease and he now comes in with what appeared to be a stroke. He is on aspirin and heparin. I will go ahead and add a beta mitra and statin therapy at this time. Prognosis is very guarded due to the severity of his problems and noncompliance. He is not a very good candidate for a heart cath due to the potential fresh stroke. Prior EF was mildly impaired. Further therapy to be determined dictation Rex Urbano MD VEW/SSB /8:18 AM /8:26 AM
[2017-08-18] MEDS: ATORVASTATIN 20 MG TAB PO SCH (09:00)
[2017-08-18] MEDS ORDERED: PANTOPRAZOLE SODIUM 40 MG VIAL IV PUSH SCH (09:00)
[2017-08-18] MEDS: PANTOPRAZOLE SODIUM 40 MG VIAL IV PUSH SCH (09:00)
[2017-08-18] MEDS ORDERED: PILL SPLITTER OTHER PRN (09:00)
[2017-08-18] MEDS: ASPIRIN 81 MG CHEW TAB PO SCH (09:00)
[2017-08-18] MEDS: DOCUSATE SODIUM 50 MG/SENNA 8.6 MG TAB PO SCH ×2 (09:00→22:01)
[2017-08-18] MEDS: ARTIFICIAL TEARS OPTH SOLN 15 ML BTL EACH EYE SCH ×3 (09:00→18:00)
--- NOTE | 2017-08-18 11:18 | RADRPT ---
EXAM DATE/TIME: 08/18/2017 09:18 [facility] COMPARISON: No previous studies available for comparison. INDICATIONS : Increased lab values. MEDICAL HISTORY : Hypercholesterolemia. Hypertension. Cerebrovascular accident. Abdominal aortic aneurysm. Coronary artery disease. SURGICAL HISTORY : CABG. Abdominal aoritc aneurysm repair. ENCOUNTER: Initial ACUITY: 1 day PAIN SCORE: Nonresponsive. LOCATION: Bilateral flank MEASUREMENTS: RIGHT KIDNEY: 11.6 x 5.5 x 6.5 cm LEFT KIDNEY: 11.7 x 5.1 x 6.0 cm FINDINGS: RIGHT KIDNEY: Diffuse cortical thinning and hyperechogenicity. Multiple benign-appearing cysts including 3.1 x 3.3 x 2.9 cm simple cyst in the midpole. 2.2 x 2.2 x 2.3 cm simple cyst in the upper pole. No evidence of hydronephrosis. LEFT KIDNEY: Renal cortex is diffusely thinned and echogenic. Multiple benign-appearing cysts. 5.0 x 4.4 x 3.0 cm simple cyst laterally. 4.4 x 2.9 x 2.6 cm simple cyst in the lower pole. 2.8 x 3.1 x 1.[address] in the midpole. No evidence of hydronephrosis. BLADDER: Within normal limits given the degree of distension. CONCLUSION: Bilateral echogenic kidneys suggesting medical renal disease. Multiple simple cysts bilaterally. No e vidence of hydronephrosis. Barry Chino MD on August 18, 2017 at 11:13 Board Certified Radiologist. This report was verified electronically.
[2017-08-18] MEDS ORDERED: NITROGLYCERIN 2% OINT 1 GM PACKET TOPICAL SCH (12:00)
[2017-08-18] MEDS: METOPROLOL TARTRATE 25 MG TAB PO SCH ×2 (13:54→22:02)
[2017-08-18] MEDS: SODIUM CHLORIDE 0.9% FLUSH 10 ML FLUSH IV FLUSH SCH ×2 (13:54→22:02)
--- NOTE | 2017-08-18 14:56 | HHI.CCPN ---
Subjective Remarks/Hospital Course This is a 76-year-old male. Date of admission 08/17/2017. Past medical history includes hypertension, dyslipidemia, history of CVA and seizure disorder NOS. Patient presents to [facility] the following history. Over the past several weeks, patient has stopped on his own. All of his home medications according to because "he did not like how it made him feel". We currently do not have a listing of these medications. Irregardless, at 12: 30 PM this afternoon patient was having lunch when he had trouble striking his work on his right side. He laid down to rest when he is noted to have a seizure by his . E VAC was initiated and patient received 2 mg Ativan the field in route here. Patient received have another seizure while receiving CT the brain and was emergently intubated using etomidate and rocuronium CT brain revealed old left parieto-occipital and right orbital frontal CVA. 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 The RCA is intracerebral flow from the left internal carotid artery. There is also proximal right STOCK MIXER stenosis. Dr. Mathews did not recommend alteplase therapy. I discussed with neurology possibility of any further intervention such as stent retrieval/thromboembolectomy. She did not recommend this at this time. Recommending MRI brain and loading with levetiracetam for seizure activity. EEG will be performed urgently. At the present time, patient's systolic blood pressure is around 95. Patient spontaneously moving left upper and lower extremity. The right upper and lower extremities flaccid. Noted a past medical history is obtained from [id number]. is currently distraught and unable to provide meaningful information. Patient has not been to this facility before. 08/18: Remains intubated sedated. Troponin elevated to 24. Not a candidate for cardiac catheterization/PCI due to probable acute stroke. I will hold of consult to vascular surgery due to acute [place] and patient not being a candidate for any intervention at this time. He remains critically ill with high predicted mortality. confirms that patient stopped taking ALL medications 1 year ago. Objective Vital Signs Date Time Temp Pulse Resp B/P (MAP) Pulse Ox O2 Delivery O2 Flow Rate FiO2 08/18/17 11:55 98 40 08/18/17 06:00 71 08/18/17 04:00 97.8 14 109/70 (83) 08/17/17 17:18 Ventilator 08/17/17 15:35 3.00 Intake and Output 08/18/17 08/18/17 08/19/17 08:00 16:00 00:00 Intake Total 848 ml Output Total 600 ml Balance 248 ml Result Diagram: 08/18/17 0334 08/18/17 0334 Other Results Laboratory Tests Test 08/17/17 17:05 Blood Gas Puncture Site RT RADIAL Blood Gas Patient Temperature 98.6 Blood Gas HCO3 15 mmol/L (22-26) Blood Gas Base Excess -11.5 mmol/L (-2-2) Blood Gas Oxygen Saturation 97 % (90-100) Arterial Blood pH 7.20 (7.380-7.420) Arterial Blood Partial Pressure CO2 39 mmHg (38-42) Arterial Blood Partial Pressure O2 173 mmHG (61-120) Arterial Blood Oxygen Content 20.0 Vol % (12.0-20.0) Arterial Blood Carboxyhemoglobin 0.6 % (0-4) Arterial Blood Methemoglobin 0.9 % (0-2) Blood Gas Hemoglobin 14.4 G/DL (12.0-16.0) Oxygen Delivery Device VENTILATOR Blood Gas Ventilator Setting PRVC/AC/VT500/R15/I1 Blood Gas Inspired Oxygen 50 % Imaging Last Impressions Head CT 08/17/17 0000 Signed Impressions: Service Date/Time: Thursday, August 17, 2017 15:26 - CONCLUSION: 1. Old stroke, negative for an acute hemorrhage. 2. Findings were called to Dr. Healy at 15:40. Ancelmo Pham MD FACR Objective Remarks GENERAL: 76-year-old male, critically ill currently orotracheally intubated SKIN: Warm and dry. No rash HEAD: Atraumatic. Normocephalic. EYES: Pupils equal and round about 3 mm bilaterally and reactive to 2 mm. No scleral icterus. No injection or drainage. ENT: No nasal bleeding or discharge. Mucous membranes pink and moist. Orotracheally intubated NECK: Trachea midline. No JVD. Bilateral carotid bruit appreciated CARDIOVASCULAR: Regular rate and rhythm. S1, S2 no S4. 2/6 systolic murmur patient left lower sternal border. Well-healed sternotomy scar noted RESPIRATORY: No accessory muscle use. Clear to auscultation. Breath sounds equal bilaterally. GASTROINTESTINAL: Abdomen soft, non-tender, scaphoid. Hypoactive bowel sounds appreciated MUSCULOSKELETAL: Extremities without noted in peripheral edema. No obvious deformities. NEUROLOGICAL: Patient withdraws to pain and spontaneously moves left upper and lower extremity. 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 CTA brain/neck -occluded right RCA with intracerebral flow on the left, left carotid artery with moderate stenosis. Right vertebral left subclavian occluded. Proximal right STOCK MIXER stenosis. Posterior circulation with patent flow likely from anterior left carotid source. Continue propofol for sedation, daily sedation vacation Further brain imaging per neurology Loaded with levetiracetam 500 mg 1 followed by 500 mg IV twice a day Dr. Kessler Did not recommend any intervention for right ICA, left subclavian right vertebral occlusions including TPA or stent retrieval Also not a candidate for acute vascular intervention due to acute [place] Lorazepam when necessary breakthrough seizures MRI to rule out acute CVA/EEG rule out seizure currently pending Seizure precautions Dr. Mathews following CV: NSTEMI Coronary artery disease status post CABG 2 History of hypertension History dyslipidemia 3.1 cm ascending aortic aneurysm History of AAA repair Right ICA stenosis Right vertebral stenosis Left subclavian stenosis Normal saline at 84 cc an hour Lipid panel currently pending, started on atorvastatin Beta mitra and NTP added by Dr. Estes cardiology, discontinued NTP due to borderline hypotension Continue IV aspirin and aspirin EKG revealed ST depression in the inferior lateral leads. Initial troponin 0.02. Peaked at 24 See neuro for vascular stenosis as above. Discussed with neurology. Did not recommend intervention with IR due to likely chronicity of occlusions Resp: Acute respiratory failure secondary to altered mental status PRVC 15/500/ Ventilator bundle Albuterol/ipratropium aerosols every 6 hours with albuterol aerosols every 2 hours when necessary dyspnea Spontaneous breathing trials when mentation improved GI: Patient is currently nothing by mouth NGT to LIWS. Start tube feeds with Jevity Pantoprazole for GI prophylaxis Docusate sodium/senna 1 tablet twice a day for bowel regimen : Condom catheter Endo: Sliding-scale insulin with Accu-Cheks to maintain euglycemia/low regimen with Accu-Cheks every 6 hours Novulin R Renal: Acute kidney injury Unknown if acute or chronic. Renal ultrasound-medical renal disease Urine electrolytes and eosinophils Nephrotoxic agents Monitor urine output, Accurate I's and O's Heme: CBC essentially within normal limits Coags within normal limits Follow-up CBC in a.m. ID: Monitor for infection MSK: Osteoporosis/osteoarthritis PT/OT evaluate and treat FEN: Replace electrolytes as clinically indicated Access - Utilize peripheral IV. Central line if indicated Prophylaxis - GI - pantoprazole - DVT - SCD/IV Heparin Critical Care: The total critical care time was 35 minutes. Time to perform other separately billable procedures was not included in the critical care time. Mann Santos MD Aug 18, 2017 14:56
[2017-08-18 16:20] LABS: HEMOGLOBIN A1a 0.9 %; HEMOGLOBIN Ao 84.6 %; HEMOGLOBIN LA1C 2.2 %; HEMOGLOBIN P3 4.2 %
--- NOTE | 2017-08-18 16:39 | ECHRPT ---
Indication: CVA/TIA CONCLUSIONS The left ventricular systolic function is zjhnofoh-kt-pnejqud reduced with an estimated ejection fra ction in the range of 35-40%. Normal left ventricular size. Wall thickness is normal. Mitral annular calcification is present. Trace mitral valve regurgitation. The aortic valve is not well visualized and is a bovine valve. Trivial pulmonary valve regurgitation. BP: 109 / 70 HR: 76 Rhythm: Sinus MEASUREMENTS (Male / Female) Normal Values Technical Quality:Technically difficult study 2D ECHO LV Diastolic Diameter PLAX 4.3 cm 4.2 - 5.9 / 3.9 - 5.3 cm LV Systolic Diameter PLAX 3.9 cm IVS Diastolic Thickness 1.0 cm 0.6 - 1.0 / 0.6 - 0.9 cm LVPW Diastolic Thickness 1.0 cm 0.6 - 1.0 / 0.6 - 0.9 cm LV Relative Wall Thickness 0.5 RV Internal Dim ED PLAX 2.5 cm LVOT Diameter 2.0 cm LA Systolic Diameter LX 4.0 cm 3.0 - 4.0 / 2.7 - 3.8 cm LV Ejection Fraction MOD 4C 42.4 % LV Cardiac Index MOD 4C 3091.7 cm/minm LV Ejection Fraction 4C AL 43.2 % LV Cardiac Index 4C AL 3274.4 cm/minm M-MODE Aortic Root Diameter MM 2.5 cm AV Cusp Separation MM 1.5 cm DOPPLER AV Peak Velocity 179.5 cm/s AV Peak Gradient 12.9 mmHg AV Mean Gradient 11.0 mmHg AV Velocity Time Integral 35.2 cm AI Peak Velocity 223.0 cm/s AI Peak Gradient 19.9 mmHg AI Pressure Half Time 795.0 ms LVOT Peak Velocity 100.0 cm/s LVOT Peak Gradient 4.0 mmHg LVOT Velocity Time Integral 16.4 cm LVOT Cardiac Index 2275.6 cm/minm AV Area Cont Eq vti 1.5 cm AV Area Cont Eq pk 1.8 cm MV Area PHT 9.6 cm Mitral E Point Velocity 88.4 cm/s Mitral A Point Velocity 126.0 cm/s Mitral E to A Ratio 0.7 LV E' Lateral Velocity 8.5 cm/s Mitral E to LV E' Lateral Ratio 10.4 LV E' Septal Velocity 5.8 cm/s Mitral E to LV E' Septal Ratio 15.4 PV Peak Velocity 130.0 cm/s PV Peak Gradient 6.8 mmHg FINDINGS LEFT VENTRICLE The left ventricular systolic function is zohgqzwh-pu-tgdipio reduced with an estimated ejection fra ction in the range of 35-40% with posterior hypokinesis. Normal left ventricular size. Wall thickness is normal. RIGHT VENTRICLE Normal right ventricular size and systolic function. LEFT ATRIUM The left atrial size is normal. RIGHT ATRIUM The right atrial size is normal. ATRIAL SEPTUM Normal atrial septal thickness without atrial level shunting by limited color doppler interrogation. AORTA The aortic root and proximal ascending aorta are normal in size on limited imaging. MITRAL VALVE Mitral annular calcification is present. Trace mitral valve regurgitation. AORTIC VALVE The aortic valve is not well visualized. Bovine valve. TRICUSPID VALVE Structurally normal tricuspid valve. No tricuspid valve stenosis or regurgitation. PULMONARY VALVE Trivial pulmonary valve regurgitation. VESSELS The inferior vena cava is normal in size. PERICARDIUM No pericardial effusion. Janak Estes MD (Electronically Signed) Final Date:18 August 2017 16:38
--- NOTE | 2017-08-18 17:10 | EKG ---
Date Performed: 08/18/2017 Time Performed: 01:24:52 PTAGE: 76 years EKG: Sinus rhythm . Prolonged QT interval Inferior/lateral ST-T changes are nonspecific Since previous tracing, no long er tachycardic Borderline ECG PREVIOUS TRACING : 08/17/2017 16.29 DOCTOR: Marya Mae Interpretating Date/Time 08/18/2017 17:08:16
[2017-08-18 20:18] LABS: APTT (PATIENT) 42.8 SEC (24.3-30.1)
--- NOTE | 2017-08-18 21:30 | MG ---
cc: TAY GARCIA Lab No: [id number] Date: 08/18/17 Age: 76 Sex: M Race: Diprivan is turned off. Intubated, getting restless. Stroke alert, seizure activity, right-sided deficits. Keppra. The recording begins with some what appear to be sleep spindles, a little better seen on the right than the left. The recording overall is synchronous and symmetric. No epileptiform or seizure activity is noted. No major hemisphere asymmetry is seen. Hyperventilation is not performed. Photic stimulation was performed without any posterior driving. IMPRESSION Some diffuse theta slowing, occasional delta slowing consistent with medication effect. There was some mild asymmetry to the sleep background, a little bit less on the left, otherwise no major hemisphere abnormality was noted. MD CHANDRAKANT Welch/ZAYDA /9:03 PM /9:25 PM
[2017-08-19] VITALS (36 sets, daily range): BP systolic 87–115; BP diastolic 57–70; PULSE 74–111; RESP 16–24; TEMP 98.7–100.7; O2SAT 93–100
[2017-08-19 01:05] LABS: AUTOMATED NEUTROPHIL # 6.3 TH/MM3 (1.8-7.7); BASOPHIL % 0.2 % (0.0-2.0); HEMATOCRIT 41.1 % (39.0-51.0); HEMO FLAGS DIFF FINAL; LYMPH % 7.1 % (9.0-44.0); LYMPHOCYTE # 0.5 TH/MM3 (1.0-4.8); MEAN CORPUSCULAR HEMOGLOBIN 27.5 PG (27.0-34.0); MEAN CORPUSCULAR HGB CONC 31.9 % (32.0-36.0); MONO % 9.8 % (0.0-8.0); NEUT % 82.9 % (16.0-70.0); PLATELET COUNT 120 TH/MM3 (150-450); RED BLOOD COUNT 4.78 MIL/MM3 (4.50-5.90); RED CELL DISTRIBUTION WIDTH 15.7 % (11.6-17.2); WHITE BLOOD COUNT 7.6 TH/MM3 (4.0-11.0)
[2017-08-19] MEDS: SODIUM CHLOR 0.9% 1000 ML INJ 1,000 ML IV SCH (01:31)
[2017-08-19 01:35] LABS: ALT (GPT) 10 U/L (12-78); ANION GAP 6 MEQ/L (5-15); AST (GOT) 31 U/L (15-37); BICARBONATE 22.1 MEQ/L (21.0-32.0); BLOOD UREA NITROGEN 25 MG/DL (7-18); CHLORIDE 114 MEQ/L (98-107); GLOMERULAR FILTRATION RATE 41 ML/MIN (>89); POTASSIUM 4.2 MEQ/L (3.5-5.1); SODIUM (NA) 142 MEQ/L (136-145)
[2017-08-19 01:37] LABS: ALKALINE PHOSPHATASE 86 U/L (45-117); CREATINE KINASE 289 U/L (39-308); TOTAL BILIRUBIN ADULT 0.9 MG/DL (0.2-1.0)
[2017-08-19] MEDS: CHLORHEXIDINE GLUCONATE 2 % 1 PACK (2 CLOTHS) TOP SCH ×2 (04:00→04:02)
[2017-08-19] MEDS: RESP: ALBUTEROL 2.5 MG/IPRATROPIUM 0.5 MG NEB (SCH) INH ×3 (04:40→15:38)
[2017-08-19] MEDS: levETIRAcetam INJ 500 MG in SODIUM CHLORIDE 0.9% INJ 100 ML IV SCH ×2 (05:31→18:39)
--- NOTE | 2017-08-19 05:50 | RADRPT ---
EXAM DATE/TIME: 08/19/2017 04:21 [place] COMPARISON: CHEST SINGLE AP, August 17, 2017, 17:05. INDICATIONS : Evaluate for respiratory disease. MEDICAL HISTORY : None. SURGICAL HISTORY : CABG. ENCOUNTER: Subsequent ACUITY: 3 days PAIN SCORE: Non-responsive. LOCATION: chest FINDINGS: A single view of the chest demonstrates endotracheal tube in good position. Nasogastric tube enters s tomach. Mild basilar airspace disease. No significant change from August 17. Postoperative CABG. CONCLUSION: 1. Endotracheal tube and nasogastric tube in good position. Mild basilar airspace disease not signifi cantly changed from August 17. Aaron Gaston MD on August 19, 2017 at 5:46 Board Certified Radiologist. This report was verified electronically.
[2017-08-19] MEDS: INSULIN NovoLIN REGULAR SUPPLEMENTAL SCALE SQ SCH ×4 (06:00→18:00)
--- NOTE | 2017-08-19 08:14 | HHI.CCPN ---
Subjective Remarks/Hospital Course This is a 76-year-old male. Date of admission 08/17/2017. Past medical history includes hypertension, dyslipidemia, history of CVA and seizure disorder NOS. Patient presents to [facility] the following history. Over the past several weeks, patient has stopped on his own. All of his home medications according to because "he did not like how it made him feel". We currently do not have a listing of these medications. Irregardless, at 12: 30 PM this afternoon patient was having lunch when he had trouble striking his work on his right side. He laid down to rest when he is noted to have a seizure by his . E VAC was initiated and patient received 2 mg Ativan the field in route here. Patient received have another seizure while receiving CT the brain and was emergently intubated using etomidate and rocuronium CT brain revealed old left parieto-occipital and right orbital frontal CVA. 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 The RCA is intracerebral flow from the left internal carotid artery. There is also proximal right TABLE TOP TILE SETTER stenosis. Dr. Mathews did not recommend alteplase therapy. I discussed with neurology possibility of any further intervention such as stent retrieval/thromboembolectomy. She did not recommend this at this time. Recommending MRI brain and loading with levetiracetam for seizure activity. EEG will be performed urgently. At the present time, patient's systolic blood pressure is around 95. Patient spontaneously moving left upper and lower extremity. The right upper and lower extremities flaccid. Noted a past medical history is obtained from [id number]. is currently distraught and unable to provide meaningful information. Patient has not been to this facility before. 08/18: Remains intubated sedated. Troponin elevated to 24. Not a candidate for cardiac catheterization/PCI due to probable acute stroke. I will hold of consult to vascular surgery due to acute [place] and patient not being a candidate for any intervention at this time. He remains critically ill with high predicted mortality. confirms that patient stopped taking ALL medications 1 year ago. 08/19 Patient is sedated with Diprivan, intubated and on Heparin drip. T;100.7 Objective Vital Signs Date Time Temp Pulse Resp B/P (MAP) Pulse Ox O2 Delivery O2 Flow Rate FiO2 08/19/17 06:00 83 08/19/17 04:42 98 40 08/19/17 04:00 99.2 16 107/70 (82) 08/17/17 17:18 Ventilator 08/17/17 15:35 3.00 Intake and Output 08/19/17 08/19/17 08/20/17 08:00 16:00 00:00 Intake Total 723 ml Output Total 500 ml Balance 223 ml Result Diagram: 08/19/17 0041 08/19/17 0041 Other Results Laboratory Tests Test 08/18/17 19:29 08/19/17 00:41 Activated Partial Thromboplast Time 42.8 SEC 56.0 SEC White Blood Count 7.6 TH/MM3 Red Blood Count 4.78 MIL/MM3 Hemoglobin 13.1 GM/DL Hematocrit 41.1 % Mean Corpuscular Volume 86.0 FL Mean Corpuscular Hemoglobin 27.5 PG Mean Corpuscular Hemoglobin Concent 31.9 % Red Cell Distribution Width 15.7 % Platelet Count 120 TH/MM3 Mean Platelet Volume 8.4 FL Neutrophils (%) (Auto) 82.9 % Lymphocytes (%) (Auto) 7.1 % Monocytes (%) (Auto) 9.8 % Eosinophils (%) (Auto) 0.0 % Basophils (%) (Auto) 0.2 % Neutrophils # (Auto) 6.3 TH/MM3 Lymphocytes # (Auto) 0.5 TH/MM3 Monocytes # (Auto) 0.7 TH/MM3 Eosinophils # (Auto) 0.0 TH/MM3 Basophils # (Auto) 0.0 TH/MM3 CBC Comment DIFF FINAL Differential Comment Blood Urea Nitrogen 25 MG/DL Creatinine 1.64 MG/DL Random Glucose 105 MG/DL Total Protein 5.2 GM/DL Albumin 2.8 GM/DL Calcium Level 7.5 MG/DL Magnesium Level 2.0 MG/DL Alkaline Phosphatase 86 U/L Aspartate Amino Transf (AST/SGOT) 31 U/L Alanine Aminotransferase (ALT/SGPT) 10 U/L Total Bilirubin 0.9 MG/DL Sodium Level 142 MEQ/L Potassium Level 4.2 MEQ/L Chloride Level 114 MEQ/L Carbon Dioxide Level 22.1 MEQ/L Anion Gap 6 MEQ/L Estimat Glomerular Filtration Rate 41 ML/MIN Total Creatine Kinase 289 U/L Imaging Last Impressions Chest X-Ray 08/19/17 0600 Signed Impressions: Service Date/Time: Saturday, August 19, 2017 04:21 - CONCLUSION: 1. Endotracheal tube and nasogastric tube in good position. Mild basilar airspace disease not significantly changed from August 17. Aaron Gaston MD Renal Ultrasound 08/18/17 0000 Signed Impressions: Service Date/Time: July 09:18 - CONCLUSION: Bilateral echogenic kidneys suggesting medical renal disease. Multiple simple cysts bilaterally. No evidence of hydronephrosis. Barry Chino MD Neck CTA 08/17/17 1519 Signed Impressions: Service Date/Time: Thursday, August 17, 2017 16:06 - CONCLUSION: 1. 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 2. 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 3. 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 4. The left vertebral artery is patent. Flow within the left vertebral is likely retrograde. 5. Plaquing but no hemodynamically significant stenosis seen at the left carotid bifurcation. 6. Reconstitution of the intracranial circulation on the right via the port lions of Ag. Chemo Pham MD Head CT 08/17/17 0000 Signed Impressions: Service Date/Time: Thursday, August 17, 2017 15:26 - CONCLUSION: 1. Old stroke, negative for an acute hemorrhage. 2. Findings were called to Dr. Healy at 15:40. Ancelmo Pham MD FACR Objective Remarks GENERAL: 76-year-old male, critically ill currently orotracheally intubated SKIN: Warm and dry. No rash HEAD: Atraumatic. Normocephalic. EYES: Pupils equal and round about 3 mm bilaterally and reactive to 2 mm. No scleral icterus. No injection or drainage. ENT: No nasal bleeding or discharge. Mucous membranes pink and moist. Orotracheally intubated NECK: Trachea midline. No JVD. Bilateral carotid bruit appreciated CARDIOVASCULAR: Regular rate and rhythm. S1, S2 no S4. 2/6 systolic murmur patient left lower sternal border. Well-healed sternotomy scar noted RESPIRATORY: No accessory muscle use. Clear to auscultation. Breath sounds equal bilaterally. GASTROINTESTINAL: Abdomen soft, non-tender, scaphoid. Hypoactive bowel sounds appreciated MUSCULOSKELETAL: Extremities without noted in peripheral edema. No obvious deformities. NEUROLOGICAL: Patient withdraws to pain and spontaneously moves left upper and lower extremity. 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 CTA brain/neck -occluded right RCA with intracerebral flow on the left, left carotid artery with moderate stenosis. Right vertebral left subclavian occluded. Proximal right TABLE TOP TILE SETTER stenosis. Posterior circulation with patent flow likely from anterior left carotid source. Continue propofol for sedation, daily sedation vacation Neuro is following, On Keppra 500 mg IV twice a day Dr. Kessler Did not recommend any intervention for right ICA, left subclavian right vertebral occlusions including TPA or stent retrieval Also not a candidate for acute vascular intervention due to acute [place] Lorazepam when necessary breakthrough seizures For MRI to rule out acute CVA/EEG rule out seizure currently pending Seizure precautions Dr. Mathews following CV: NSTEMI Coronary artery disease status post CABG 2 History of hypertension History dyslipidemia 3.1 cm ascending aortic aneurysm History of AAA repair Right ICA stenosis Right vertebral stenosis Left subclavian stenosis Monitor HR and BP keep MAP>65mmHG Echo showed EF 35-40% with posterior hypokinesis on atorvastatin, ASA 81mg daily, Lopressor 12.5mg BID Cards- Dr. Estes cardiology, Continue IV Heparin and aspirin EKG revealed ST depression in the inferior lateral leads. Initial troponin 0.02. Peaked at 24, follow up troponin level. Neuro did not recommend intervention with IR due to likely chronicity of occlusions Resp: Acute respiratory failure secondary to altered mental status [facility] 15/500/11/25/39 Ventilator bundle, check ABG Albuterol/ipratropium aerosols every 6 hours with albuterol aerosols every 2 hours when necessary dyspnea Spontaneous breathing trials as chon. GI: Patient is currently nothing by mouth NGT to LIWS. Start tube feeds with Jevity Pantoprazole for GI prophylaxis Docusate sodium/senna 1 tablet twice a day for bowel regimen Endo: SSI with Accu-Cheks to maintain euglycemia/low regimen with Accu-Cheks every 6 hours Novulin R Renal: Acute kidney injury Monitor renal function, I/O's, electrolytes replacement as needed. Avoid nephrotoxins On NS@84ml/hr Cr: 1.64, renal US: multiple simple cysts b/l, no hydronephrosis Heme: Monitor CBC, coags- on Heparin drip ID: Monitor for signs of infection( Fever, WBC) MSK: Osteoporosis/osteoarthritis PT/OT evaluate and treat Access - Utilize peripheral IV. Central line if indicated Prophylaxis - GI - pantoprazole - DVT - SCD/IV Heparin Critical Care: The total critical care time was 30 minutes. Time to perform other separately billable procedures was not included in the critical care time. Nazario Butcher MD Aug 19, 2017 08:14
[2017-08-19] MEDS: DOCUSATE SODIUM 50 MG/SENNA 8.6 MG TAB PO SCH ×2 (08:46→22:28)
[2017-08-19] MEDS: ATORVASTATIN 20 MG TAB PO SCH (08:46)
[2017-08-19] MEDS: PANTOPRAZOLE SODIUM 40 MG VIAL IV PUSH SCH (08:47)
[2017-08-19] MEDS: METOPROLOL TARTRATE 25 MG TAB PO SCH ×2 (08:47→22:28)
[2017-08-19] MEDS: ASPIRIN 81 MG CHEW TAB PO SCH (08:47)
[2017-08-19] MEDS: SODIUM CHLORIDE 0.9% FLUSH 10 ML FLUSH IV FLUSH SCH ×2 (08:48→22:28)
[2017-08-19] MEDS: CHLORHEXIDINE 0.12% (ORAL KIT) 15 ML CUP MT SCH ×2 (08:48→20:00)
[2017-08-19] MEDS: ARTIFICIAL TEARS OPTH SOLN 15 ML BTL EACH EYE SCH ×3 (09:00→18:00)
--- NOTE | 2017-08-19 09:06 | PD.CARD.PN ---
Subjective Subjective Remarks sedated on vent Objective Medications Current Medications Medications (Trade) Dose Ordered Sig/Paul Route Start Time Stop Time Status Last Admin (Tylenol) 650 mg Q6H PRN PO 08/17/17 17:15 (Tears Naturale Opth Soln) 1 drop TID EACH EYE 08/17/17 18:00 08/18/17 18:00 Propofol 100 ml @ 1.854 mls/ hr TITRATE PRN IV 08/17/17 17:15 08/18/17 22:10 Sodium Chloride 1,000 ml @ 84 mls/hr [id number] IV 08/17/17 18:00 08/19/17 01:31 (NS Flush) 2 ml UNSCH PRN IV FLUSH 08/17/17 17:30 (NS Flush) 2 ml BID IV FLUSH 08/17/17 21:00 08/19/17 08:48 (Protonix Inj) 40 mg DAILY IV PUSH 08/18/17 09:00 08/19/17 08:47 (Zofran Inj) 4 mg Q6H PRN IV PUSH 08/17/17 17:30 (Duoneb Neb) 1 ampule Q6HR NEB INH 08/17/17 22:00 08/19/17 04:40 (Albuterol Neb) 2.5 mg Q2HR NEB PRN INH 08/17/17 17:30 Miscellaneous Information 1 Q361D XX 08/17/17 17:30 (Chlorhexidine 2% Cloth) 3 pack Taper DAILY@04 TOP 08/18/17 04:00 08/14/18 03:59 08/19/17 04:02 (Chlorhexidine 2% Cloth) 3 pack UNSCH PRN TOP 08/17/17 17:30 (Fernanda-Colace) 1 tab BID PO 08/17/17 21:00 08/19/17 08:46 (Milk Of Magnesia Liq) 30 ml Q12H PRN PO 08/17/17 17:30 (Senokot) 17.2 mg Q12H PRN PO 08/17/17 17:30 (Dulcolax Supp) 10 mg DAILY PRN RECTAL 08/17/17 17:30 (Lactulose Liq) 30 ml DAILY PRN PO 08/17/17 17:30 (Peridex 0.12% Liq) 15 ml BID@08,20 MT 08/17/17 20:00 08/19/17 08:48 (D50w (Vial) Inj) 50 ml UNSCH PRN IV PUSH 08/17/17 17:30 (Glucagon Inj) 1 mg UNSCH PRN OTHER 08/17/17 17:30 (NovoLIN R SUPPLEMENTAL SCALE) 1 Q6HR SQ 08/17/17 18:00 Levetriacetam 500 mg/Sodium Chloride 105 ml @ 420 mls/hr Q12H IV 08/18/17 06:00 08/19/17 05:31 (Ativan Inj) 2 mg Q10M PRN IV PUSH 08/17/17 17:30 (Trandate Inj) 10 mg Q2H PRN IV PUSH 08/17/17 17:30 Nicardipine HCl 25 mg/Sodium Chloride 260 ml @ 52 mls/hr TITRATE PRN IV 08/17/17 17:30 (Aspirin Chew) 81 mg DAILY PO 08/18/17 09:00 08/19/17 08:47 Fentanyl Citrate 250 ml @ 5 mls/hr TITRATE PRN IV 08/17/17 18:00 Heparin Sodium/ Dextrose 250 ml @ 7.2 mls/hr TITRATE IV 08/18/17 01:00 (Lopressor) 12.5 mg Q12HR PO 08/18/17 09:00 08/19/17 08:47 (Lipitor) 20 mg DAILY PO 08/18/17 09:00 08/19/17 08:46 (Pill Splitter) 1 ea UNSCH PRN OTHER 08/18/17 09:00 Vital Signs / I&O Vital Signs Date Time Temp Pulse Resp B/P (MAP) Pulse Ox O2 Delivery O2 Flow Rate FiO2 08/19/17 06:00 83 08/19/17 04:42 98 40 08/19/17 04:00 50 08/19/17 04:00 99.2 91 16 107/70 (82) 100 08/19/17 04:00 91 08/19/17 02:00 79 08/19/17 00:20 98 40 08/19/17 00:00 100.7 96 17 99/65 (76) 95 08/19/17 00:00 50 08/19/17 00:00 96 08/18/17 22:00 88 08/18/17 21:29 98 40 08/18/17 20:00 85 08/18/17 20:00 98.4 85 22 100/60 (73) 100 08/18/17 20:00 50 08/18/17 16:59 98 40 08/18/17 16:59 40 08/18/17 11:55 98 40 I/O 08/18/17 08/18/17 08/18/17 08/19/17 08/19/17 08/19/17 07:00 15:00 23:00 07:00 15:00 23:00 Intake Total 848 ml 96 ml 723 ml Output Total 600 ml 500 ml Balance 248 ml 96 ml 223 ml Intake IV Total 698 ml 96 ml 648 ml Other 150 ml 75 ml Output Urine Total 600 ml 500 ml # Bowel Movements 1 Physical Exam sedated on vent Chest clear ant CV S1S2 RRR Abd soft Ext: absent LUE and diminished pedal pulses Laboratory Laboratory Tests Test 08/18/17 19:29 08/19/17 00:41 Activated Partial Thromboplast Time 42.8 SEC 56.0 SEC White Blood Count 7.6 TH/MM3 Red Blood Count 4.78 MIL/MM3 Hemoglobin 13.1 GM/DL Hematocrit 41.1 % Mean Corpuscular Volume 86.0 FL Mean Corpuscular Hemoglobin 27.5 PG Mean Corpuscular Hemoglobin Concent 31.9 % Red Cell Distribution Width 15.7 % Platelet Count 120 TH/MM3 Mean Platelet Volume 8.4 FL Neutrophils (%) (Auto) 82.9 % Lymphocytes (%) (Auto) 7.1 % Monocytes (%) (Auto) 9.8 % Eosinophils (%) (Auto) 0.0 % Basophils (%) (Auto) 0.2 % Neutrophils # (Auto) 6.3 TH/MM3 Lymphocytes # (Auto) 0.5 TH/MM3 Monocytes # (Auto) 0.7 TH/MM3 Eosinophils # (Auto) 0.0 TH/MM3 Basophils # (Auto) 0.0 TH/MM3 CBC Comment DIFF FINAL Differential Comment Blood Urea Nitrogen 25 MG/DL Creatinine 1.64 MG/DL Random Glucose 105 MG/DL Total Protein 5.2 GM/DL Albumin 2.8 GM/DL Calcium Level 7.5 MG/DL Magnesium Level 2.0 MG/DL Alkaline Phosphatase 86 U/L Aspartate Amino Transf (AST/SGOT) 31 U/L Alanine Aminotransferase (ALT/SGPT) 10 U/L Total Bilirubin 0.9 MG/DL Sodium Level 142 MEQ/L Potassium Level 4.2 MEQ/L Chloride Level 114 MEQ/L Carbon Dioxide Level 22.1 MEQ/L Anion Gap 6 MEQ/L Estimat Glomerular Filtration Rate 41 ML/MIN Total Creatine Kinase 289 U/L Assessment and Plan Problem List: (1) Refusal of treatment by patient ICD Codes: Z53.20 - Procedure and treatment not carried out because of patient' s decision for unspecified reasons (2) Peripheral arterial disease ICD Codes: I73.9 - Peripheral vascular disease, unspecified (3) Cerebrovascular disease ICD Codes: I67.9 - Cerebrovascular disease, unspecified (4) CAD (coronary artery disease) ICD Codes: I25.10 - Atherosclerotic heart disease of [place] coronary artery without angina pectoris (5) Non-STEMI (non-ST elevated myocardial infarction) ICD Codes: I21.4 - Non-ST elevation (NSTEMI) myocardial infarction Plan: EF 35-40% (6) CVA (cerebral vascular accident) ICD Codes: I63.9 - Cerebral infarction, unspecified (7) Aortic valve replaced ICD Codes: Z95.2 - Presence of prosthetic heart valve Plan: bovine AVR in past Assessment and Plan Prognosis poor. Medical therapy of CAD in view of fresh CVA. Discussed Condition With and sister Problem Qualifiers (1) CVA (cerebral vascular accident): Qualified Codes: I63.211 - Cerebral infarction due to unspecified occlusion or stenosis of right vertebral arteries Janak Estes MD Aug 19, 2017 09:06
[2017-08-19 10:44] LABS: BLOOD GAS BASE EXCESS -5.6 mmol/L (-2-2); BLOOD GAS CARBOXYHEMOGLOBIN 1.7 % (0-4); BLOOD GAS HCO3 19 mmol/L (22-26); BLOOD GAS METHEMOGLOBIN 1.2 % (0-2); BLOOD GAS O2 HGB SATURATION 96 % (90-100); BLOOD GAS OXYGEN CONTENT 16.7 Vol % (12.0-20.0); BLOOD GAS PCO2 35 mmHg (38-42); BLOOD GAS PO2 123 mmHg (61-120); BLOOD GAS TOTAL HGB 12.3 G/DL (12.0-16.0); TEMP CORR TO 98.6
[2017-08-19 10:45] LABS: CRITICAL VALUE NO; OXYGEN DEVICE VENTILATOR
[2017-08-19 10:46] LABS: DRAW SITE RT RADIAL; FIO2 40 %; NUMBER OF ARTERIAL PUNCTURES 1; VENT SETTINGS PRVC/AC
[2017-08-19 11:02] LABS: APTT (PATIENT) 39.9 SEC (24.3-30.1)
--- NOTE | 2017-08-19 13:57 | HHI.PR ---
Subjective Remarks had mri brain just got back Objective Vital Signs Date Time Temp Pulse Resp B/P (MAP) Pulse Ox O2 Delivery O2 Flow Rate FiO2 08/19/17 13:47 97 40 08/19/17 13:46 98 08/19/17 12:17 99 40 08/19/17 09:25 100 40 08/19/17 06:00 83 08/19/17 04:42 98 40 08/19/17 04:00 50 08/19/17 04:00 99.2 91 16 107/70 (82) 100 08/19/17 04:00 91 08/19/17 02:00 79 08/19/17 00:20 98 40 08/19/17 00:00 100.7 96 17 99/65 (76) 95 08/19/17 00:00 50 08/19/17 00:00 96 08/18/17 22:00 88 08/18/17 21:29 98 40 08/18/17 20:00 85 08/18/17 20:00 98.4 85 22 100/60 (73) 100 08/18/17 20:00 50 08/18/17 16:59 98 40 08/18/17 16:59 40 I/O 08/18/17 08/18/17 08/18/17 08/19/17 08/19/17 08/19/17 07:00 15:00 23:00 07:00 15:00 23:00 Intake Total 848 ml 96 ml 723 ml Output Total 600 ml 500 ml Balance 248 ml 96 ml 223 ml Intake IV Total 698 ml 96 ml 648 ml Other 150 ml 75 ml Output Urine Total 600 ml 500 ml # Bowel Movements 1 Result Diagram: 08/19/17 0041 08/19/17 0041 Imaging mri brain official report pending however do not see any acute stroke Objective Remarks intub/vent mild sedation with diprivan perrla eyes open to sternal follows commands squeezes equally with both hands and wiggles toes toes w/d b/l. limited exam on vent.but alert and following. Assessment and Plan Assessment and Plan resp failure nonst RI -occl.right icaand vert art. -cont medical management -ok for anticoagulation as per need. -asa qd. -statin extubate as able further w/u per cards. Odalys Mathews MD Aug 19, 2017 13:57
--- NOTE | 2017-08-19 13:59 | RADRPT ---
EXAM DATE/TIME: 08/19/2017 13:02 [facility] COMPARISON: No previous studies available for comparison. INDICATIONS : Seizures. MEDICAL HISTORY : Seizures. Hypertension. SURGICAL HISTORY : CABG AAA repair ENCOUNTER: Subsequent ACUITY: 3 day PAIN SCORE: 0/10 LOCATION: cranial TECHNIQUE: Multiplanar, multisequence MRI of the brain was performed without contrast. FINDINGS: MRI of the brain is performed in sagittal, axial and coronal planes. The craniocervical junction and midline structures are unremarkable. Diffusion weighted images demonstrate no abnormality. There is n o evidence of acute cortical infarction, acute hemorrhage, mass effect or midline shift is seen. Ther e is periventricular hyperintensity on the T2 weighted images consistent with small vessel vascular d isease significantly more than expected in a patient of this age. Old left occipital lobe infarct is present. Posterior fossa structures are unremarkable. There is benign-appearing mucosal disease in th e right maxillary sinus. CONCLUSION: 1. Old left occipital lobe infarct 2. No evidence of acute intracranial pathology. Chronic ischemic changes as above. Leo Means MD on August 19, 2017 at 13:42 Board Certified Radiologist. This report was verified electronically.
[2017-08-19 16:09] LABS: BLOOD GAS BASE EXCESS -6.5 mmol/L (-2-2); BLOOD GAS CARBOXYHEMOGLOBIN 1.8 % (0-4); BLOOD GAS HCO3 18 mmol/L (22-26); BLOOD GAS METHEMOGLOBIN 1.2 % (0-2); BLOOD GAS O2 HGB SATURATION 95 % (90-100); BLOOD GAS OXYGEN CONTENT 17.8 Vol % (12.0-20.0); BLOOD GAS PCO2 34 mmHg (38-42); BLOOD GAS PO2 98 mmHg (61-120); BLOOD GAS TOTAL HGB 13.3 G/DL (12.0-16.0); TEMP CORR TO 98.6
[2017-08-19 16:10] LABS: CRITICAL VALUE NO; DRAW SITE RT RADIAL; FIO2 40 %; NUMBER OF ARTERIAL PUNCTURES 2; OXYGEN DEVICE VENTILATOR; STAT NO; VENT SETTINGS CPAP5/ 10PS
[2017-08-19] MEDS: DEXT 5%-NACL 0.9% 1000 ML INJ 1,000 ML IV SCH (18:39)
[2017-08-19] MEDS: RESP: ALBUTEROL 2.5 MG/IPRATROPIUM 0.5 MG NEB (SCH) NEB (19:46)
[2017-08-20] VITALS (15 sets, daily range): BP systolic 102–127; BP diastolic 68–81; PULSE 92–110; RESP 18–26; TEMP 98.3–99.8; O2SAT 90–97
[2017-08-20] MEDS: CHLORHEXIDINE GLUCONATE 2 % 1 PACK (2 CLOTHS) TOP SCH (02:07)
[2017-08-20] MEDS: levETIRAcetam INJ 500 MG in SODIUM CHLORIDE 0.9% INJ 100 ML IV SCH ×2 (04:30→18:00)
[2017-08-20] MEDS: DEXT 5%-NACL 0.9% 1000 ML INJ 1,000 ML IV SCH ×2 (04:34→17:50)
[2017-08-20] MEDS: RESP: ALBUTEROL 2.5 MG/IPRATROPIUM 0.5 MG NEB (SCH) NEB ×7 (04:50→23:47)
[2017-08-20 05:20] LABS: AUTOMATED NEUTROPHIL # 4.8 TH/MM3 (1.8-7.7); BASOPHIL % 0.3 % (0.0-2.0); EOSINOPHIL % 0.2 % (0.0-4.0); HEMO FLAGS DIFF FINAL; LYMPH % 9.4 % (9.0-44.0); LYMPHOCYTE # 0.6 TH/MM3 (1.0-4.8); MEAN CELL VOLUME 85.8 FL (80.0-100.0); MEAN CORPUSCULAR HEMOGLOBIN 27.7 PG (27.0-34.0); MEAN CORPUSCULAR HGB CONC 32.3 % (32.0-36.0); MONO % 8.9 % (0.0-8.0); NEUT % 81.2 % (16.0-70.0); PLATELET COUNT 125 TH/MM3 (150-450); RED BLOOD COUNT 4.78 MIL/MM3 (4.50-5.90); RED CELL DISTRIBUTION WIDTH 15.6 % (11.6-17.2); WHITE BLOOD COUNT 5.9 TH/MM3 (4.0-11.0)
[2017-08-20 05:28] LABS: APTT (PATIENT) 63.7 SEC (24.3-30.1)
[2017-08-20 05:44] LABS: MAGNESIUM 2.1 MG/DL (1.5-2.5); POTASSIUM 4.2 MEQ/L (3.5-5.1)
[2017-08-20] MEDS: INSULIN NovoLIN REGULAR SUPPLEMENTAL SCALE SQ SCH ×4 (05:56→18:00)
--- NOTE | 2017-08-20 07:58 | HHI.CCPN ---
Subjective Remarks/Hospital Course This is a 76-year-old male. Date of admission 08/17/2017. Past medical history includes hypertension, dyslipidemia, history of CVA and seizure disorder NOS. Patient presents to [facility] the following history. Over the past several weeks, patient has stopped on his own. All of his home medications according to because "he did not like how it made him feel". We currently do not have a listing of these medications. Irregardless, at 12: 30 PM this afternoon patient was having lunch when he had trouble striking his work on his right side. He laid down to rest when he is noted to have a seizure by his . E VAC was initiated and patient received 2 mg Ativan the field in route here. Patient received have another seizure while receiving CT the brain and was emergently intubated using etomidate and rocuronium CT brain revealed old left parieto-occipital and right orbital frontal CVA. 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 The RCA is intracerebral flow from the left internal carotid artery. There is also proximal right MUSHROOM GROWING SUPERVISOR stenosis. Dr. Mathews did not recommend alteplase therapy. I discussed with neurology possibility of any further intervention such as stent retrieval/thromboembolectomy. She did not recommend this at this time. Recommending MRI brain and loading with levetiracetam for seizure activity. EEG will be performed urgently. At the present time, patient's systolic blood pressure is around 95. Patient spontaneously moving left upper and lower extremity. The right upper and lower extremities flaccid. Noted a past medical history is obtained from [id number]. is currently distraught and unable to provide meaningful information. Patient has not been to this facility before. 08/18: Remains intubated sedated. Troponin elevated to 24. Not a candidate for cardiac catheterization/PCI due to probable acute stroke. I will hold of consult to vascular surgery due to acute ID and patient not being a candidate for any intervention at this time. He remains critically ill with high predicted mortality. confirms that patient stopped taking ALL medications 1 year ago. 08/19 Patient is sedated with Diprivan, intubated and on Heparin drip. T;100.7 08/20 Patient s/p extubation yesterday on 3L oxygen with good sats. Afebrile. Awake and alert. MRI brain yesterday showed Old left occipital lobe infarct. No evidence of acute intracranial pathology. Chronic ischemic changes. Objective Vital Signs Date Time Temp Pulse Resp B/P (MAP) Pulse Ox O2 Delivery O2 Flow Rate FiO2 08/20/17 06:00 110 08/20/17 04:58 95 Nasal Cannula 3.00 08/20/17 04:00 98.3 24 102/76 (85) 08/19/17 16:00 40 Intake and Output 08/20/17 08/20/17 08/21/17 08:00 16:00 00:00 Intake Total 105 ml Output Total 950 ml Balance -845 ml Result Diagram: 08/20/17 0430 08/20/17 0430 Other Results Laboratory Tests Test 08/19/17 10:04 08/19/17 10:40 08/19/17 16:00 08/20/17 04:30 Activated Partial Thromboplast Time 39.9 SEC 63.7 SEC Troponin I 4.90 NG/ML Blood Gas Puncture Site RT RADIAL RT RADIAL Blood Gas Patient Temperature 98.6 98.6 Blood Gas HCO3 19 mmol/L 18 mmol/L Blood Gas Base Excess -5.6 mmol/L -6.5 mmol/L Blood Gas Oxygen Saturation 96 % 95 % Arterial Blood pH 7.35 7.34 Arterial Blood Partial Pressure CO2 35 mmHg 34 mmHg Arterial Blood Partial Pressure O2 123 mmHg 98 mmHg Arterial Blood Oxygen Content 16.7 Vol % 17.8 Vol % Arterial Blood Carboxyhemoglobin 1.7 % 1.8 % Arterial Blood Methemoglobin 1.2 % 1.2 % Blood Gas Hemoglobin 12.3 G/DL 13.3 G/DL Oxygen Delivery Device VENTILATOR VENTILATOR Blood Gas Ventilator Setting PRVC/AC CPAP5/ 10PS Blood Gas Inspired Oxygen 40 % 40 % White Blood Count 5.9 TH/MM3 Red Blood Count 4.78 MIL/MM3 Hemoglobin 13.3 GM/DL Hematocrit 41.0 % Mean Corpuscular Volume 85.8 FL Mean Corpuscular Hemoglobin 27.7 PG Mean Corpuscular Hemoglobin Concent 32.3 % Red Cell Distribution Width 15.6 % Platelet Count 125 TH/MM3 Mean Platelet Volume 8.9 FL Neutrophils (%) (Auto) 81.2 % Lymphocytes (%) (Auto) 9.4 % Monocytes (%) (Auto) 8.9 % Eosinophils (%) (Auto) 0.2 % Basophils (%) (Auto) 0.3 % Neutrophils # (Auto) 4.8 TH/MM3 Lymphocytes # (Auto) 0.6 TH/MM3 Monocytes # (Auto) 0.5 TH/MM3 Eosinophils # (Auto) 0.0 TH/MM3 Basophils # (Auto) 0.0 TH/MM3 CBC Comment DIFF FINAL Differential Comment Blood Urea Nitrogen 24 MG/DL Creatinine 1.55 MG/DL Random Glucose 125 MG/DL Calcium Level 8.0 MG/DL Phosphorus Level 2.2 MG/DL Magnesium Level 2.1 MG/DL Sodium Level 143 MEQ/L Potassium Level 4.2 MEQ/L Chloride Level 112 MEQ/L Carbon Dioxide Level 21.0 MEQ/L Anion Gap 10 MEQ/L Estimat Glomerular Filtration Rate 44 ML/MIN Imaging Last Impressions Chest X-Ray 08/19/17 0600 Signed Impressions: Service Date/Time: Saturday, August 19, 2017 04:21 - CONCLUSION: 1. Endotracheal tube and nasogastric tube in good position. Mild basilar airspace disease not significantly changed from August 17. Aaron Gaston MD Brain MRI 08/19/17 0000 Signed Impressions: Service Date/Time: Saturday, August 19, 2017 13:02 - CONCLUSION: 1. Old left occipital lobe infarct 2. No evidence of acute intracranial pathology. Chronic ischemic changes as above. Leo Means MD Renal Ultrasound 08/18/17 0000 Signed Impressions: Service Date/Time: July 09:18 - CONCLUSION: Bilateral echogenic kidneys suggesting medical renal disease. Multiple simple cysts bilaterally. No evidence of hydronephrosis. Barry Chino MD Neck CTA 08/17/17 1519 Signed Impressions: Service Date/Time: Thursday, August 17, 2017 16:06 - CONCLUSION: 1. 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 2. 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 3. 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 4. The left vertebral artery is patent. Flow within the left vertebral is likely retrograde. 5. Plaquing but no hemodynamically significant stenosis seen at the left carotid bifurcation. 6. Reconstitution of the intracranial circulation on the right via the [place] of Ag. Chemo Pham MD Head CT 08/17/17 0000 Signed Impressions: Service Date/Time: Thursday, August 17, 2017 15:26 - CONCLUSION: 1. Old stroke, negative for an acute hemorrhage. 2. Findings were called to Dr. Healy at 15:40. Ancelmo Pham MD FACR Objective Remarks GENERAL: 76-year-old male lying in bed in NAD SKIN: Warm and dry. No rash HEAD: Atraumatic. Normocephalic. EYES: Pupils equal and round about 3 mm bilaterally and reactive to 2 mm. No scleral icterus. No injection or drainage. ENT: No nasal bleeding or discharge. Mucous membranes pink and moist. Orotracheally intubated NECK: Trachea midline. No JVD. Bilateral carotid bruit appreciated CARDIOVASCULAR: Regular rate and rhythm. S1, S2 no S4. 2/6 systolic murmur patient left lower sternal border. Well-healed sternotomy scar noted RESPIRATORY: No accessory muscle use. Clear to auscultation. Breath sounds equal bilaterally. GASTROINTESTINAL: Abdomen soft, non-tender, scaphoid. Hypoactive bowel sounds appreciated MUSCULOSKELETAL: Extremities without noted in peripheral edema. No obvious deformities. NEUROLOGICAL: Awake and alert A/P Assessment and Plan Neuro/Psych: Seizure disorder Rule out acute CVA Old left parietal-occipital/right orbital frontal CVA 08/20 MRI brain: Old left occipital lobe infarct. No evidence of acute intracranial pathology. Chronic ischemic changes. CT brain 08/17 revealed a left parietal-occipital/right orbital frontal CVA. CTA brain/neck -occluded right RCA with intracerebral flow on the left, left carotid artery with moderate stenosis. Right vertebral left subclavian occluded. Proximal right MUSHROOM GROWING SUPERVISOR stenosis. Posterior circulation with patent flow likely from anterior left carotid source. Continue propofol for sedation, daily sedation vacation Neuro is following, On Keppra 500 mg IV twice a day Dr. Kessler Did not recommend any intervention for right ICA, left subclavian right vertebral occlusions including TPA or stent retrieval Also not a candidate for acute vascular intervention due to acute ID Lorazepam when necessary breakthrough seizures Seizure precautions Dr. Mathews following CV: NSTEMI Coronary artery disease status post CABG 2 History of hypertension History dyslipidemia 3.1 cm ascending aortic aneurysm History of AAA repair Right ICA stenosis Right vertebral stenosis Left subclavian stenosis Monitor HR and BP keep MAP>65mmHG Echo showed EF 35-40% with posterior hypokinesis on atorvastatin, ASA 81mg daily, Lopressor 12.5mg BID Cards- Dr. Estes cardiology, Continue IV Heparin and aspirin EKG revealed ST depression in the inferior lateral leads. Initial troponin 0.02. Peaked at 24, follow up troponin level. Neuro did not recommend intervention with IR due to likely chronicity of occlusions Resp: Acute respiratory failure secondary to altered mental status Extubated 08/19 Continue with oxygen keep sat >92% Albuterol/ipratropium aerosols every 6 hours with albuterol aerosols every 2 hours when necessary dyspnea Spontaneous breathing trials as chon. GI: Speech eval, diet per speech Pantoprazole for GI prophylaxis Docusate sodium/senna 1 tablet twice a day for bowel regimen Endo: SSI with Accu-Cheks to maintain euglycemia/low regimen with Accu-Cheks every 6 hours Novulin R Renal: Acute kidney injury Monitor renal function, I/O's, electrolytes replacement as needed. Avoid nephrotoxins On D5NS@84ml/hr Cr: 1.55, renal US: multiple simple cysts b/l, no hydronephrosis Heme: Monitor CBC, coags- on Heparin drip ID: Monitor for signs of infection( Fever, WBC) MSK: Osteoporosis/osteoarthritis PT/OT evaluate and treat Access - Utilize peripheral IV. Central line if indicated Prophylaxis - GI - pantoprazole - DVT - SCD/IV Heparin Level 3 Nazario Butcher MD Aug 20, 2017 07:58
[2017-08-20] MEDS: CHLORHEXIDINE 0.12% (ORAL KIT) 15 ML CUP MT SCH ×2 (08:00→19:40)
[2017-08-20] MEDS: ARTIFICIAL TEARS OPTH SOLN 15 ML BTL EACH EYE SCH ×3 (09:00→18:00)
[2017-08-20] MEDS: SODIUM CHLORIDE 0.9% FLUSH 10 ML FLUSH IV FLUSH SCH ×2 (09:06→21:46)
[2017-08-20] MEDS: ASPIRIN 81 MG CHEW TAB PO SCH (09:06)
[2017-08-20] MEDS: PANTOPRAZOLE SODIUM 40 MG VIAL IV PUSH SCH (09:06)
[2017-08-20] MEDS: DOCUSATE SODIUM 50 MG/SENNA 8.6 MG TAB PO SCH ×2 (09:06→19:41)
[2017-08-20] MEDS: METOPROLOL TARTRATE 25 MG TAB PO SCH ×2 (09:06→19:41)
[2017-08-20] MEDS: ATORVASTATIN 20 MG TAB PO SCH (09:06)
[2017-08-20] MEDS: HEPARIN-D5W 25,000 U/250 ML 250 ML IV SCH (12:37)
[2017-08-20] MEDS: ACETAMINOPHEN 325 MG TAB PO PRN (12:37)
[2017-08-21] VITALS (16 sets, daily range): BP systolic 109–121; BP diastolic 72–81; PULSE 97–109; RESP 19–22; TEMP 98.1–99.5; O2SAT 88–100
[2017-08-21] MEDS: CHLORHEXIDINE GLUCONATE 2 % 1 PACK (2 CLOTHS) TOP SCH (02:08)
[2017-08-21] MEDS: RESP: ALBUTEROL 2.5 MG/IPRATROPIUM 0.5 MG NEB (SCH) NEB ×5 (04:45→19:56)
[2017-08-21] MEDS: DEXT 5%-NACL 0.9% 1000 ML INJ 1,000 ML IV SCH ×2 (05:03→14:58)
[2017-08-21] MEDS: levETIRAcetam INJ 500 MG in SODIUM CHLORIDE 0.9% INJ 100 ML IV SCH ×2 (05:04→18:41)
[2017-08-21] MEDS: INSULIN NovoLIN REGULAR SUPPLEMENTAL SCALE SQ SCH ×4 (05:13→18:00)
[2017-08-21] MEDS: HEPARIN-D5W 25,000 U/250 ML 250 ML IV SCH (05:21)
[2017-08-21 06:11] LABS: AUTOMATED NEUTROPHIL # 4.2 TH/MM3 (1.8-7.7); BASOPHIL % 0.4 % (0.0-2.0); EOSINOPHIL % 0.7 % (0.0-4.0); HEMATOCRIT 39.7 % (39.0-51.0); HEMO FLAGS DIFF FINAL; LYMPH % 10.2 % (9.0-44.0); LYMPHOCYTE # 0.5 TH/MM3 (1.0-4.8); MEAN CELL VOLUME 86.4 FL (80.0-100.0); MEAN CORPUSCULAR HEMOGLOBIN 27.5 PG (27.0-34.0); MEAN CORPUSCULAR HGB CONC 31.8 % (32.0-36.0); MONO % 9.1 % (0.0-8.0); NEUT % 79.6 % (16.0-70.0); PLATELET COUNT 136 TH/MM3 (150-450); RED CELL DISTRIBUTION WIDTH 15.6 % (11.6-17.2); WHITE BLOOD COUNT 5.3 TH/MM3 (4.0-11.0)
[2017-08-21 06:25] LABS: BICARBONATE 21.7 MEQ/L (21.0-32.0); POTASSIUM 3.8 MEQ/L (3.5-5.1)
[2017-08-21 06:35] LABS: APTT (PATIENT) 47.4 SEC (24.3-30.1)
[2017-08-21] MEDS: CHLORHEXIDINE 0.12% (ORAL KIT) 15 ML CUP MT SCH ×2 (08:00→20:00)
--- NOTE | 2017-08-21 08:04 | HHI.CCPN ---
Subjective Remarks/Hospital Course This is a 76-year-old male. Date of admission 08/17/2017. Past medical history includes hypertension, dyslipidemia, history of CVA and seizure disorder NOS. Patient presents to [facility] the following history. Over the past several weeks, patient has stopped on his own. All of his home medications according to because "he did not like how it made him feel". We currently do not have a listing of these medications. Irregardless, at 12: 30 PM this afternoon patient was having lunch when he had trouble striking his work on his right side. He laid down to rest when he is noted to have a seizure by his . E VAC was initiated and patient received 2 mg Ativan the field in route here. Patient received have another seizure while receiving CT the brain and was emergently intubated using etomidate and rocuronium CT brain revealed old left parieto-occipital and right orbital frontal CVA. 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 The RCA is intracerebral flow from the left internal carotid artery. There is also proximal right [employer]ICIAN stenosis. Dr. Mathews did not recommend alteplase therapy. I discussed with neurology possibility of any further intervention such as stent retrieval/thromboembolectomy. She did not recommend this at this time. Recommending MRI brain and loading with levetiracetam for seizure activity. EEG will be performed urgently. At the present time, patient's systolic blood pressure is around 95. Patient spontaneously moving left upper and lower extremity. The right upper and lower extremities flaccid. Noted a past medical history is obtained from [id number]. is currently distraught and unable to provide meaningful information. Patient has not been to this facility before. 08/18: Remains intubated sedated. Troponin elevated to 24. Not a candidate for cardiac catheterization/PCI due to probable acute stroke. I will hold of consult to vascular surgery due to acute NM and patient not being a candidate for any intervention at this time. He remains critically ill with high predicted mortality. confirms that patient stopped taking ALL medications 1 year ago. 08/19 Patient is sedated with Diprivan, intubated and on Heparin drip. T;100.7 08/20 Patient s/p extubation yesterday on 3L oxygen with good sats. Afebrile. Awake and alert. MRI brain yesterday showed Old left occipital lobe infarct. No evidence of acute intracranial pathology. Chronic ischemic changes. 08/21 No events overnight. On 4L oxygen with good sats. Afebrile. Kept NPO per speech. renal function is improving with Cr: 1.55 from 1.27. On Heparin drip. Objective Vital Signs Date Time Temp Pulse Resp B/P (MAP) Pulse Ox O2 Delivery O2 Flow Rate FiO2 08/21/17 07:22 96 Nasal Cannula 4.00 08/21/17 06:00 99 08/21/17 04:00 98.4 22 116/81 (93) 08/19/17 16:00 40 Intake and Output 08/21/17 08/21/17 08/22/17 08:00 16:00 00:00 Intake Total 105 ml Output Total 350 ml Balance -245 ml Result Diagram: 08/21/17 0410 08/21/17 0410 Other Results Laboratory Tests Test 08/21/17 04:10 White Blood Count 5.3 TH/MM3 Red Blood Count 4.60 MIL/MM3 Hemoglobin 12.6 GM/DL Hematocrit 39.7 % Mean Corpuscular Volume 86.4 FL Mean Corpuscular Hemoglobin 27.5 PG Mean Corpuscular Hemoglobin Concent 31.8 % Red Cell Distribution Width 15.6 % Platelet Count 136 TH/MM3 Mean Platelet Volume 9.3 FL Neutrophils (%) (Auto) 79.6 % Lymphocytes (%) (Auto) 10.2 % Monocytes (%) (Auto) 9.1 % Eosinophils (%) (Auto) 0.7 % Basophils (%) (Auto) 0.4 % Neutrophils # (Auto) 4.2 TH/MM3 Lymphocytes # (Auto) 0.5 TH/MM3 Monocytes # (Auto) 0.5 TH/MM3 Eosinophils # (Auto) 0.0 TH/MM3 Basophils # (Auto) 0.0 TH/MM3 CBC Comment DIFF FINAL Differential Comment Activated Partial Thromboplast Time 47.4 SEC Blood Urea Nitrogen 20 MG/DL Creatinine 1.27 MG/DL Random Glucose 112 MG/DL Calcium Level 8.4 MG/DL Sodium Level 145 MEQ/L Potassium Level 3.8 MEQ/L Chloride Level 115 MEQ/L Carbon Dioxide Level 21.7 MEQ/L Anion Gap 8 MEQ/L Estimat Glomerular Filtration Rate 55 ML/MIN Imaging Last Impressions Chest X-Ray 08/19/17 0600 Signed Impressions: Service Date/Time: Saturday, August 19, 2017 04:21 - CONCLUSION: 1. Endotracheal tube and nasogastric tube in good position. Mild basilar airspace disease not significantly changed from August 17. Aaron Gaston MD Brain MRI 08/19/17 0000 Signed Impressions: Service Date/Time: Saturday, August 19, 2017 13:02 - CONCLUSION: 1. Old left occipital lobe infarct 2. No evidence of acute intracranial pathology. Chronic ischemic changes as above. Leo Means MD Renal Ultrasound 08/18/17 0000 Signed Impressions: Service Date/Time: July 09:18 - CONCLUSION: Bilateral echogenic kidneys suggesting medical renal disease. Multiple simple cysts bilaterally. No evidence of hydronephrosis. Barry Chino MD Neck CTA 08/17/17 1519 Signed Impressions: Service Date/Time: Thursday, August 17, 2017 16:06 - CONCLUSION: 1. 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 2. 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 3. 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 4. The left vertebral artery is patent. Flow within the left vertebral is likely retrograde. 5. Plaquing but no hemodynamically significant stenosis seen at the left carotid bifurcation. 6. Reconstitution of the intracranial circulation on the right via the [place] of Ag. Chemo Pham MD Head CT 08/17/17 0000 Signed Impressions: Service Date/Time: Thursday, August 17, 2017 15:26 - CONCLUSION: 1. Old stroke, negative for an acute hemorrhage. 2. Findings were called to Dr. Healy at 15:40. Ancelmo Pham MD FACR Objective Remarks GENERAL: 76-year-old male lying in bed in NAD SKIN: Warm and dry. No rash HEAD: Atraumatic. Normocephalic. EYES: Pupils equal and round about 3 mm bilaterally and reactive to 2 mm. No scleral icterus. No injection or drainage. ENT: No nasal bleeding or discharge. Mucous membranes pink and moist. Orotracheally intubated NECK: Trachea midline. No JVD. Bilateral carotid bruit appreciated CARDIOVASCULAR: Regular rate and rhythm. S1, S2 no S4. 2/6 systolic murmur patient left lower sternal border. Well-healed sternotomy scar noted RESPIRATORY: No accessory muscle use. Clear to auscultation. Breath sounds equal bilaterally. GASTROINTESTINAL: Abdomen soft, non-tender, scaphoid. Hypoactive bowel sounds appreciated MUSCULOSKELETAL: Extremities without noted in peripheral edema. No obvious deformities. NEUROLOGICAL: Awake and alert A/P Assessment and Plan Neuro/Psych: Seizure disorder Rule out acute CVA Old left parietal-occipital/right orbital frontal CVA Monitor neuro status and avoid sedatives 08/20 MRI brain: Old left occipital lobe infarct. No evidence of acute intracranial pathology. Chronic ischemic changes. CT brain 08/17 revealed a left parietal-occipital/right orbital frontal CVA. CTA brain/neck -occluded right RCA with intracerebral flow on the left, left carotid artery with moderate stenosis. Right vertebral left subclavian occluded. Proximal right [employer]CH[employer]ICIAN stenosis. Posterior circulation with patent flow likely from anterior left carotid source. Continue propofol for sedation, daily sedation vacation Neuro is following, On Keppra 500 mg IV twice a day Dr. Kessler Did not recommend any intervention for right ICA, left subclavian right vertebral occlusions including TPA or stent retrieval Also not a candidate for acute vascular intervention due to acute NM Lorazepam when necessary breakthrough seizures Seizure precautions Dr. Mathews following CV: NSTEMI Coronary artery disease status post CABG 2 History of hypertension History dyslipidemia 3.1 cm ascending aortic aneurysm History of AAA repair Right ICA stenosis Right vertebral stenosis Left subclavian stenosis Monitor HR and BP keep MAP>65mmHG Echo showed EF 35-40% with posterior hypokinesis on atorvastatin, ASA 81mg daily, Lopressor 12.5mg BID Cards- Dr. Estes cardiology, Continue IV Heparin and aspirin EKG revealed ST depression in the inferior lateral leads. Initial troponin 0.02. Peaked at 24, follow up troponin level. Neuro did not recommend intervention with IR due to likely chronicity of occlusions Resp: Acute respiratory failure secondary to altered mental status Extubated 08/19 Continue with oxygen keep sat >92% Albuterol/ipratropium aerosols every 6 hours with albuterol aerosols every 2 hours when necessary dyspnea Check CXR GI: NPO per speech, speech reeval today Pantoprazole for GI prophylaxis Docusate sodium/senna 1 tablet twice a day for bowel regimen Endo: SSI with Accu-Cheks to maintain euglycemia/low regimen with Accu-Cheks every 6 hours Novulin R Renal: Acute kidney injury Monitor renal function, I/O's, electrolytes replacement as needed. Avoid nephrotoxins On D5NS@84ml/hr Cr:1.27 from 1.55, renal US: multiple simple cysts b/l, no hydronephrosis Heme: Monitor CBC, coags- on Heparin drip ID: Monitor for signs of infection( Fever, WBC) MSK: Osteoporosis/osteoarthritis PT/OT evaluate and treat Access - Utilize peripheral IV. Central line if indicated Prophylaxis - GI - pantoprazole - DVT - SCD/IV Heparin Level 3 Nazario Butcher MD Aug 21, 2017 08:04
[2017-08-21] MEDS: ASPIRIN 81 MG CHEW TAB PO SCH (08:45)
[2017-08-21] MEDS: DOCUSATE SODIUM 50 MG/SENNA 8.6 MG TAB PO SCH ×2 (08:45→21:00)
[2017-08-21] MEDS: ATORVASTATIN 20 MG TAB PO SCH (08:45)
[2017-08-21] MEDS: ARTIFICIAL TEARS OPTH SOLN 15 ML BTL EACH EYE SCH ×3 (08:45→18:00)
[2017-08-21] MEDS: PANTOPRAZOLE SODIUM 40 MG VIAL IV PUSH SCH (08:45)
[2017-08-21] MEDS: METOPROLOL TARTRATE 25 MG TAB PO SCH ×2 (08:45→21:00)
[2017-08-21] MEDS: SODIUM CHLORIDE 0.9% FLUSH 10 ML FLUSH IV FLUSH SCH ×2 (08:45→21:00)
--- NOTE | 2017-08-21 09:04 | RADRPT ---
EXAM DATE/TIME: 08/21/2017 08:15 [place] COMPARISON: CHEST SINGLE AP, August 19, 2017, 4:21. INDICATIONS : Shortness of breath and cough. MEDICAL HISTORY : None. SURGICAL HISTORY : CABG. ENCOUNTER: Initial ACUITY: 1 day PAIN SCORE: 0/10 LOCATION: Bilateral chest FINDINGS: Single semiupright AP portable view of the chest is obtained. There has been interval removal of endo tracheal tube and a nasogastric tube. Multiple intact median sternotomy wires are present. Heart size is at the upper limits of normal. There is mild hypoinflation of the lungs with new right basilar ai rspace atelectasis versus consolidation. There is diffuse cephalization of pulmonary vasculature, sta ble and diffuse interstitial prominence. CONCLUSION: Interval removal of an endotracheal tube with overall hypoinflation of the lungs and new right lower lobe atelectasis versus consolidation. The lung exam is consistent with volume overload or pulmonary edema. Michelle De Leon MD on August 21, 2017 at 9:01 Board Certified Radiologist. This report was verified electronically.
--- NOTE | 2017-08-21 09:45 | PD.CARD.PN ---
Subjective Subjective Remarks Called to see patient for increasing troponin; he is now extubated and feeling reasonably well, no chest pain currently but he does admit to chest pain prior to admission. Objective Medications Administered Medications Medications (Trade) Dose Ordered Sig/Paul Route PRN Reason Start Time Stop Time Status Last Admin Dose Admin Artificial Tears (Tears Naturale Opth Soln) 1 drop TID EACH EYE 08/17/17 18:00 08/20/17 18:00 Sodium Chloride (NS Flush) 2 ml BID IV FLUSH 08/17/17 21:00 08/21/17 08:45 Pantoprazole Sodium (Protonix Inj) 40 mg DAILY IV PUSH 08/18/17 09:00 08/21/17 08:45 Chlorhexidine Gluconate (Chlorhexidine 2% Cloth) 3 pack Taper DAILY@04 TOP 08/18/17 04:00 08/14/18 03:59 08/21/17 02:08 Senna/Docusate Sodium (Fernanda-Colace) 1 tab BID PO 08/17/17 21:00 08/20/17 09:06 Chlorhexidine Gluconate (Peridex 0.12% Liq) 15 ml BID@08,20 MT 08/17/17 20:00 08/19/17 08:48 Levetriacetam 500 mg/Sodium Chloride 105 ml @ 420 mls/hr Q12H IV 08/18/17 06:00 08/21/17 05:04 Aspirin (Aspirin Chew) 81 mg DAILY PO 08/18/17 09:00 08/20/17 09:06 Heparin Sodium/ Dextrose 250 ml @ 7.2 mls/hr TITRATE IV 08/18/17 01:00 08/21/17 05:21 Metoprolol Tartrate (Lopressor) 12.5 mg Q12HR PO 08/18/17 09:00 08/20/17 09:06 Atorvastatin Calcium (Lipitor) 20 mg DAILY PO 08/18/17 09:00 08/20/17 09:06 Albuterol/ Ipratropium (Duoneb Neb) 1 ampule Q4HR NEB NEB 08/19/17 20:00 08/21/17 07:22 Dextrose/Sodium Chloride 1,000 ml @ 84 mls/hr [id number] IV 08/19/17 18:00 08/21/17 05:03 Vital Signs / I&O Vital Signs Date Time Temp Pulse Resp B/P (MAP) Pulse Ox O2 Delivery O2 Flow Rate FiO2 08/21/17 07:22 96 Nasal Cannula 4.00 08/21/17 06:00 99 08/21/17 05:29 93 Nasal Cannula 4.00 08/21/17 04:00 97 08/21/17 04:00 98.4 97 22 116/81 (93) 95 08/21/17 02:00 101 08/21/17 00:00 98.4 105 20 113/80 (91) 95 08/21/17 00:00 105 08/20/17 22:00 107 08/20/17 20:51 95 Nasal Cannula 4.00 08/20/17 20:00 98.6 109 24 127/81 (96) 91 08/20/17 20:00 109 08/20/17 18:00 104 08/20/17 16:00 104 08/20/17 16:00 99.4 104 22 108/73 (85) 93 08/20/17 14:00 101 08/20/17 12:00 106 08/20/17 12:00 99.8 106 21 111/79 (90) 90 08/20/17 10:00 106 I/O 08/20/17 08/20/17 08/20/17 08/21/17 08/21/17 08/21/17 07:00 15:00 23:00 07:00 15:00 23:00 Intake Total 105 ml 1000 ml 105 ml Output Total 950 ml 200 ml 350 ml Balance -845 ml 1000 ml -200 ml -245 ml Intake Oral 0 ml IV Total 105 ml 1000 ml 105 ml Output Urine Total 950 ml 200 ml 350 ml # Voids 2 # Bowel Movements 1 1 0 Physical Exam GENERAL: This is a well-nourished, well-developed patient, in no apparent distress. CARDIOVASCULAR: Regular rate and rhythm without murmurs, gallops, or rubs. RESPIRATORY: Clear to auscultation. Breath sounds equal bilaterally. No wheezes , rales, or rhonchi. GASTROINTESTINAL: Abdomen soft, non-tender, nondistended. Normal active bowel sounds MUSCULOSKELETAL: Extremities without clubbing, cyanosis, or edema. NEURO: Alert & Oriented x4 to person, place, time, situation. Moves all ext x4 Laboratory Administered Medications Medications (Trade) Dose Ordered Sig/Paul Route PRN Reason Start Time Stop Time Status Last Admin Dose Admin Artificial Tears (Tears Naturale Opth Soln) 1 drop TID EACH EYE 08/17/17 18:00 08/20/17 18:00 Sodium Chloride (NS Flush) 2 ml BID IV FLUSH 08/17/17 21:00 08/21/17 08:45 Pantoprazole Sodium (Protonix Inj) 40 mg DAILY IV PUSH 08/18/17 09:00 08/21/17 08:45 Chlorhexidine Gluconate (Chlorhexidine 2% Cloth) 3 pack Taper DAILY@04 TOP 08/18/17 04:00 08/14/18 03:59 08/21/17 02:08 Senna/Docusate Sodium (Fernanda-Colace) 1 tab BID PO 08/17/17 21:00 08/20/17 09:06 Chlorhexidine Gluconate (Peridex 0.12% Liq) 15 ml BID@08,20 MT 08/17/17 20:00 08/19/17 08:48 Levetriacetam 500 mg/Sodium Chloride 105 ml @ 420 mls/hr Q12H IV 08/18/17 06:00 08/21/17 05:04 Aspirin (Aspirin Chew) 81 mg DAILY PO 08/18/17 09:00 08/20/17 09:06 Heparin Sodium/ Dextrose 250 ml @ 7.2 mls/hr TITRATE IV 08/18/17 01:00 08/21/17 05:21 Metoprolol Tartrate (Lopressor) 12.5 mg Q12HR PO 08/18/17 09:00 08/20/17 09:06 Atorvastatin Calcium (Lipitor) 20 mg DAILY PO 08/18/17 09:00 08/20/17 09:06 Albuterol/ Ipratropium (Duoneb Neb) 1 ampule Q4HR NEB NEB 08/19/17 20:00 08/21/17 07:22 Dextrose/Sodium Chloride 1,000 ml @ 84 mls/hr [id number] IV 08/19/17 18:00 08/21/17 05:03 Laboratory Tests Test 08/21/17 04:10 White Blood Count 5.3 TH/MM3 Red Blood Count 4.60 MIL/MM3 Hemoglobin 12.6 GM/DL Hematocrit 39.7 % Mean Corpuscular Volume 86.4 FL Mean Corpuscular Hemoglobin 27.5 PG Mean Corpuscular Hemoglobin Concent 31.8 % Red Cell Distribution Width 15.6 % Platelet Count 136 TH/MM3 Mean Platelet Volume 9.3 FL Neutrophils (%) (Auto) 79.6 % Lymphocytes (%) (Auto) 10.2 % Monocytes (%) (Auto) 9.1 % Eosinophils (%) (Auto) 0.7 % Basophils (%) (Auto) 0.4 % Neutrophils # (Auto) 4.2 TH/MM3 Lymphocytes # (Auto) 0.5 TH/MM3 Monocytes # (Auto) 0.5 TH/MM3 Eosinophils # (Auto) 0.0 TH/MM3 Basophils # (Auto) 0.0 TH/MM3 CBC Comment DIFF FINAL Differential Comment Activated Partial Thromboplast Time 47.4 SEC Blood Urea Nitrogen 20 MG/DL Creatinine 1.27 MG/DL Random Glucose 112 MG/DL Calcium Level 8.4 MG/DL Sodium Level 145 MEQ/L Potassium Level 3.8 MEQ/L Chloride Level 115 MEQ/L Carbon Dioxide Level 21.7 MEQ/L Anion Gap 8 MEQ/L Estimat Glomerular Filtration Rate 55 ML/MIN Troponin I 9.45 NG/ML Imaging Last Impressions Chest X-Ray 08/19/17 0600 Signed Impressions: Service Date/Time: Saturday, August 19, 2017 04:21 - CONCLUSION: 1. Endotracheal tube and nasogastric tube in good position. Mild basilar airspace disease not significantly changed from August 17. Aaron Gaston MD Brain MRI 08/19/17 0000 Signed Impressions: Service Date/Time: Saturday, August 19, 2017 13:02 - CONCLUSION: 1. Old left occipital lobe infarct 2. No evidence of acute intracranial pathology. Chronic ischemic changes as above. Leo Means MD Renal Ultrasound 08/18/17 0000 Signed Impressions: Service Date/Time: July 09:18 - CONCLUSION: Bilateral echogenic kidneys suggesting medical renal disease. Multiple simple cysts bilaterally. No evidence of hydronephrosis. Barry Chino MD Neck CTA 08/17/17 1519 Signed Impressions: Service Date/Time: Thursday, August 17, 2017 16:06 - CONCLUSION: 1. 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 2. 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 3. 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 4. The left vertebral artery is patent. Flow within the left vertebral is likely retrograde. 5. Plaquing but no hemodynamically significant stenosis seen at the left carotid bifurcation. 6. Reconstitution of the intracranial circulation on the right via the [place] of Ag. Chemo Pham MD Head CT 08/17/17 0000 Signed Impressions: Service Date/Time: Thursday, August 17, 2017 15:26 - CONCLUSION: 1. Old stroke, negative for an acute hemorrhage. 2. Findings were called to Dr. Healy at 15:40. Ancelmo Pham MD FACR Assessment and Plan Problem List: (1) Peripheral arterial disease ICD Codes: I73.9 - Peripheral vascular disease, unspecified (2) Cerebrovascular disease ICD Codes: I67.9 - Cerebrovascular disease, unspecified (3) CAD (coronary artery disease) ICD Codes: I25.10 - Atherosclerotic heart disease of [place] coronary artery without angina pectoris (4) Non-STEMI (non-ST elevated myocardial infarction) ICD Codes: I21.4 - Non-ST elevation (NSTEMI) myocardial infarction Plan: EF 35-40%; will increase metoprolol as bp allows, continue heparin for now (5) CVA (cerebral vascular accident) ICD Codes: I63.9 - Cerebral infarction, unspecified (6) Aortic valve replaced ICD Codes: Z95.2 - Presence of prosthetic heart valve Plan: bovine AVR in past (7) Refusal of treatment by patient ICD Codes: Z53.20 - Procedure and treatment not carried out because of patient' s decision for unspecified reasons Assessment and Plan Will leave NPO past midnight in case Dr. Estes wants to consider cath. Problem Qualifiers (1) CVA (cerebral vascular accident): Qualified Codes: I63.211 - Cerebral infarction due to unspecified occlusion or stenosis of right vertebral arteries Suhas Amin MD Aug 21, 2017 09:45
[2017-08-21] MEDS ORDERED: METOPROLOL TARTRATE 5 MG/5 ML VIAL IV SCH (23:20)
[2017-08-22] VITALS (21 sets, daily range): BP systolic 91–125; BP diastolic 54–85; PULSE 98–110; TEMP 98.3–98.9; O2SAT 87–100
[2017-08-22] MEDS: RESP: ALBUTEROL 2.5 MG/IPRATROPIUM 0.5 MG NEB (SCH) NEB ×6 (00:09→23:46)
[2017-08-22] MEDS ORDERED: METOPROLOL TARTRATE 5 MG/5 ML VIAL IV PUSH ONE (00:15)
[2017-08-22] MEDS: DEXT 5%-NACL 0.9% 1000 ML INJ 1,000 ML IV SCH (00:42)
[2017-08-22] MEDS: HEPARIN-D5W 25,000 U/250 ML 250 ML IV SCH (00:43)
[2017-08-22] MEDS: CHLORHEXIDINE GLUCONATE 2 % 1 PACK (2 CLOTHS) TOP SCH (04:00)
[2017-08-22] MEDS: levETIRAcetam INJ 500 MG in SODIUM CHLORIDE 0.9% INJ 100 ML IV SCH ×2 (06:00→17:53)
[2017-08-22] MEDS: INSULIN NovoLIN REGULAR SUPPLEMENTAL SCALE SQ SCH ×4 (06:00→17:57)
[2017-08-22 06:32] LABS: STAT NO; ULNAR PULSE PRESENT
[2017-08-22 06:47] LABS: AUTOMATED NEUTROPHIL # 4.5 TH/MM3 (1.8-7.7); BASOPHIL % 0.5 % (0.0-2.0); EOSINOPHIL % 0.8 % (0.0-4.0); HEMATOCRIT 37.6 % (39.0-51.0); HEMO FLAGS DIFF FINAL; LYMPH % 9.1 % (9.0-44.0); LYMPHOCYTE # 0.5 TH/MM3 (1.0-4.8); MEAN CORPUSCULAR HEMOGLOBIN 27.4 PG (27.0-34.0); MEAN CORPUSCULAR HGB CONC 31.9 % (32.0-36.0); NEUT % 78.6 % (16.0-70.0); PLATELET COUNT 152 TH/MM3 (150-450); RED BLOOD COUNT 4.38 MIL/MM3 (4.50-5.90); RED CELL DISTRIBUTION WIDTH 15.6 % (11.6-17.2); WHITE BLOOD COUNT 5.7 TH/MM3 (4.0-11.0)
[2017-08-22 06:58] LABS: APTT (PATIENT) 43.3 SEC (24.3-30.1)
[2017-08-22 07:16] LABS: BICARBONATE 23.5 MEQ/L (21.0-32.0); POTASSIUM 3.7 MEQ/L (3.5-5.1)
[2017-08-22] MEDS: CHLORHEXIDINE 0.12% (ORAL KIT) 15 ML CUP MT SCH ×2 (08:00→19:30)
--- NOTE | 2017-08-22 08:16 | HHI.CCPN ---
Subjective Remarks/Hospital Course This is a 76-year-old male. Date of admission 08/17/2017. Past medical history includes hypertension, dyslipidemia, history of CVA and seizure disorder NOS. Patient presents to [facility] the following history. Over the past several weeks, patient has stopped on his own. All of his home medications according to because "he did not like how it made him feel". We currently do not have a listing of these medications. Irregardless, at 12: 30 PM this afternoon patient was having lunch when he had trouble striking his work on his right side. He laid down to rest when he is noted to have a seizure by his . E VAC was initiated and patient received 2 mg Ativan the field in route here. Patient received have another seizure while receiving CT the brain and was emergently intubated using etomidate and rocuronium CT brain revealed old left parieto-occipital and right orbital frontal CVA. 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 The RCA is intracerebral flow from the left internal carotid artery. There is also proximal right [employer] stenosis. Dr. Mathews did not recommend alteplase therapy. I discussed with neurology possibility of any further intervention such as stent retrieval/thromboembolectomy. She did not recommend this at this time. Recommending MRI brain and loading with levetiracetam for seizure activity. EEG will be performed urgently. At the present time, patient's systolic blood pressure is around 95. Patient spontaneously moving left upper and lower extremity. The right upper and lower extremities flaccid. Noted a past medical history is obtained from [id number]. is currently distraught and unable to provide meaningful information. Patient has not been to this facility before. 08/18: Remains intubated sedated. Troponin elevated to 24. Not a candidate for cardiac catheterization/PCI due to probable acute stroke. I will hold of consult to vascular surgery due to acute IL and patient not being a candidate for any intervention at this time. He remains critically ill with high predicted mortality. confirms that patient stopped taking ALL medications 1 year ago. 08/19 Patient is sedated with Diprivan, intubated and on Heparin drip. T;100.7 08/20 Patient s/p extubation yesterday on 3L oxygen with good sats. Afebrile. Awake and alert. MRI brain yesterday showed Old left occipital lobe infarct. No evidence of acute intracranial pathology. Chronic ischemic changes. 08/21 No events overnight. On 4L oxygen with good sats. Afebrile. Kept NPO per speech. renal function is improving with Cr: 1.55 from 1.27. On Heparin drip. 08/22 Patient is awake, alert lying in bed in NAD. Objective Vital Signs Date Time Temp Pulse Resp B/P (MAP) Pulse Ox O2 Delivery O2 Flow Rate FiO2 08/22/17 06:00 102 08/22/17 04:00 98.7 91/54 (66) 99 08/21/17 20:20 Simple Mask 10.00 08/21/17 16:00 20 08/19/17 16:00 40 Intake and Output 08/22/17 08/22/17 08/23/17 08:00 16:00 00:00 Output Total 250 ml Balance -250 ml Result Diagram: 08/22/1760508/22/17605 Other Results Laboratory Tests Test 08/21/17 11:44 08/22/17 06:06 Activated Partial Thromboplast Time 45.0 SEC 43.3 SEC White Blood Count 5.7 TH/MM3 Red Blood Count 4.38 MIL/MM3 Hemoglobin 12.0 GM/DL Hematocrit 37.6 % Mean Corpuscular Volume 86.0 FL Mean Corpuscular Hemoglobin 27.4 PG Mean Corpuscular Hemoglobin Concent 31.9 % Red Cell Distribution Width 15.6 % Platelet Count 152 TH/MM3 Mean Platelet Volume 8.9 FL Neutrophils (%) (Auto) 78.6 % Lymphocytes (%) (Auto) 9.1 % Monocytes (%) (Auto) 11.0 % Eosinophils (%) (Auto) 0.8 % Basophils (%) (Auto) 0.5 % Neutrophils # (Auto) 4.5 TH/MM3 Lymphocytes # (Auto) 0.5 TH/MM3 Monocytes # (Auto) 0.6 TH/MM3 Eosinophils # (Auto) 0.0 TH/MM3 Basophils # (Auto) 0.0 TH/MM3 CBC Comment DIFF FINAL Differential Comment Blood Urea Nitrogen 19 MG/DL Creatinine 1.25 MG/DL Random Glucose 122 MG/DL Calcium Level 8.2 MG/DL Sodium Level 145 MEQ/L Potassium Level 3.7 MEQ/L Chloride Level 115 MEQ/L Carbon Dioxide Level 23.5 MEQ/L Anion Gap 7 MEQ/L Estimat Glomerular Filtration Rate 56 ML/MIN Imaging Last Impressions Chest X-Ray 08/21/17 0000 Signed Impressions: Service Date/Time: Monday, August 21, 2017 08:15 - CONCLUSION: Interval removal of an endotracheal tube with overall hypoinflation of the lungs and new right lower lobe atelectasis versus consolidation. The lung exam is consistent with volume overload or pulmonary edema. Michelle De Leon MD Brain MRI 08/19/17 0000 Signed Impressions: Service Date/Time: Saturday, August 19, 2017 13:02 - CONCLUSION: 1. Old left occipital lobe infarct 2. No evidence of acute intracranial pathology. Chronic ischemic changes as above. Leo Means MD Renal Ultrasound 08/18/17 0000 Signed Impressions: Service Date/Time: July 09:18 - CONCLUSION: Bilateral echogenic kidneys suggesting medical renal disease. Multiple simple cysts bilaterally. No evidence of hydronephrosis. Barry Chino MD Neck CTA 08/17/17 1519 Signed Impressions: Service Date/Time: Thursday, August 17, 2017 16:06 - CONCLUSION: 1. 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 2. 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 3. 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 4. The left vertebral artery is patent. Flow within the left vertebral is likely retrograde. 5. Plaquing but no hemodynamically significant stenosis seen at the left carotid bifurcation. 6. Reconstitution of the intracranial circulation on the right via the [place] of Ag. Chemo Pham MD Head CT 08/17/17 0000 Signed Impressions: Service Date/Time: Thursday, August 17, 2017 15:26 - CONCLUSION: 1. Old stroke, negative for an acute hemorrhage. 2. Findings were called to Dr. Healy at 15:40. Ancelmo Pham MD FACR Objective Remarks GENERAL: 76-year-old male lying in bed in NAD SKIN: Warm and dry. No rash HEAD: Atraumatic. Normocephalic. EYES: Pupils equal and round about 3 mm bilaterally and reactive to 2 mm. No scleral icterus. No injection or drainage. ENT: No nasal bleeding or discharge. Mucous membranes pink and moist. Orotracheally intubated NECK: Trachea midline. No JVD. Bilateral carotid bruit appreciated CARDIOVASCULAR: Regular rate and rhythm. S1, S2 no S4. 2/6 systolic murmur patient left lower sternal border. Well-healed sternotomy scar noted RESPIRATORY: No accessory muscle use. Clear to auscultation. Breath sounds equal bilaterally. GASTROINTESTINAL: Abdomen soft, non-tender, scaphoid. Hypoactive bowel sounds appreciated MUSCULOSKELETAL: Extremities without noted in peripheral edema. No obvious deformities. NEUROLOGICAL: Awake and alert A/P Assessment and Plan Neuro/Psych: Seizure disorder Rule out acute CVA Old left parietal-occipital/right orbital frontal CVA Monitor neuro status and avoid sedatives 08/20 MRI brain: Old left occipital lobe infarct. No evidence of acute intracranial pathology. Chronic ischemic changes. CT brain 08/17 revealed a left parietal-occipital/right orbital frontal CVA. CTA brain/neck -occluded right RCA with intracerebral flow on the left, left carotid artery with moderate stenosis. Right vertebral left subclavian occluded. Proximal right [employer] stenosis. Posterior circulation with patent flow likely from anterior left carotid source. Continue propofol for sedation, daily sedation vacation Neuro is following, On Keppra 500 mg IV twice a day Dr. Kessler Did not recommend any intervention for right ICA, left subclavian right vertebral occlusions including TPA or stent retrieval Also not a candidate for acute vascular intervention due to acute IL Lorazepam when necessary breakthrough seizures Seizure precautions Dr. Mathews following CV: NSTEMI Coronary artery disease status post CABG 2 History of hypertension History dyslipidemia 3.1 cm ascending aortic aneurysm History of AAA repair Right ICA stenosis Right vertebral stenosis Left subclavian stenosis Monitor HR and BP keep MAP>65mmHG Echo showed EF 35-40% with posterior hypokinesis on atorvastatin, ASA 81mg daily, Lopressor 12.5mg BID Cards- Dr. Estes cardiology, Continue IV Heparin and aspirin EKG revealed ST depression in the inferior lateral leads. Initial troponin 0.02. Peaked at 24, follow up troponin level. Neuro did not recommend intervention with IR due to likely chronicity of occlusions Resp: Acute respiratory failure secondary to altered mental status Extubated 08/19 Continue with oxygen keep sat >92% Albuterol/ipratropium aerosols every 6 hours with albuterol aerosols every 2 hours when necessary dyspnea GI: NPO per speech, speech reeval today Pantoprazole for GI prophylaxis Docusate sodium/senna 1 tablet twice a day for bowel regimen Endo: SSI with Accu-Cheks to maintain euglycemia/low regimen with Accu-Cheks every 6 hours Novulin R Renal: Acute kidney injury Monitor renal function, I/O's, electrolytes replacement as needed. Avoid nephrotoxins Renal US: multiple simple cysts b/l, no hydronephrosis d/c IVF and diurese with Bumex 1mg x1 Heme: Monitor CBC, coags- on Heparin drip ID: Monitor for signs of infection( Fever, WBC) check sputum cx MSK: Osteoporosis/osteoarthritis PT/OT evaluate and treat Access - Utilize peripheral IV. Prophylaxis - GI - pantoprazole - DVT - SCD/IV Heparin Level 3 Nazario Butcher MD Aug 22, 2017 08:16
[2017-08-22 08:28] LABS: ULNAR PULSE PRESENT
[2017-08-22] MEDS: SODIUM CHLORIDE 0.9% FLUSH 10 ML FLUSH IV FLUSH SCH ×2 (08:46→20:37)
[2017-08-22] MEDS: PANTOPRAZOLE SODIUM 40 MG VIAL IV PUSH SCH (08:47)
[2017-08-22] MEDS: ASPIRIN 81 MG CHEW TAB PO SCH (08:47)
[2017-08-22] MEDS: ARTIFICIAL TEARS OPTH SOLN 15 ML BTL EACH EYE SCH ×3 (08:48→17:53)
[2017-08-22] MEDS: ATORVASTATIN 20 MG TAB PO SCH (08:48)
[2017-08-22] MEDS: DOCUSATE SODIUM 50 MG/SENNA 8.6 MG TAB PO SCH ×2 (08:49→20:36)
[2017-08-22] MEDS: METOPROLOL TARTRATE 25 MG TAB PO SCH ×2 (08:49→20:36)
[2017-08-22] MEDS ORDERED: BUMETANIDE INJ 1 MG/4 ML VIAL IV PUSH ONE (09:00)
--- NOTE | 2017-08-22 10:41 | PD.CARD.PN ---
Subjective Subjective Remarks no CV complaints still requiring O2 Objective Medications Current Medications Medications (Trade) Dose Ordered Sig/Paul Route Start Time Stop Time Status Last Admin (Tylenol) 650 mg Q6H PRN PO 08/17/17 17:15 (Tears Naturale Opth Soln) 1 drop TID EACH EYE 08/17/17 18:00 08/20/17 18:00 (NS Flush) 2 ml UNSCH PRN IV FLUSH 08/17/17 17:30 (NS Flush) 2 ml BID IV FLUSH 08/17/17 21:00 08/22/17 08:46 (Protonix Inj) 40 mg DAILY IV PUSH 08/18/17 09:00 08/22/17 08:47 (Zofran Inj) 4 mg Q6H PRN IV PUSH 08/17/17 17:30 Miscellaneous Information 1 Q361D XX 08/17/17 17:30 (Chlorhexidine 2% Cloth) 3 pack Taper DAILY@04 TOP 08/18/17 04:00 08/14/18 03:59 08/22/17 04:00 (Chlorhexidine 2% Cloth) 3 pack UNSCH PRN TOP 08/17/17 17:30 (Fernanda-Colace) 1 tab BID PO 08/17/17 21:00 08/20/17 09:06 (Milk Of Magnesia Liq) 30 ml Q12H PRN PO 08/17/17 17:30 (Senokot) 17.2 mg Q12H PRN PO 08/17/17 17:30 (Dulcolax Supp) 10 mg DAILY PRN RECTAL 08/17/17 17:30 (Lactulose Liq) 30 ml DAILY PRN PO 08/17/17 17:30 (Peridex 0.12% Liq) 15 ml BID@08,20 MT 08/17/17 20:00 08/19/17 08:48 (D50w (Vial) Inj) 50 ml UNSCH PRN IV PUSH 08/17/17 17:30 (Glucagon Inj) 1 mg UNSCH PRN OTHER 08/17/17 17:30 (NovoLIN R SUPPLEMENTAL SCALE) 1 Q6HR SQ 08/17/17 18:00 Levetriacetam 500 mg/Sodium Chloride 105 ml @ 420 mls/hr Q12H IV 08/18/17 06:00 08/22/17 06:00 (Ativan Inj) 2 mg Q10M PRN IV PUSH 08/17/17 17:30 (Trandate Inj) 10 mg Q2H PRN IV PUSH 08/17/17 17:30 (Aspirin Chew) 81 mg DAILY PO 08/18/17 09:00 08/20/17 09:06 Heparin Sodium/ Dextrose 250 ml @ 7.2 mls/hr TITRATE IV 08/18/17 01:00 08/22/17 00:43 (Lipitor) 20 mg DAILY PO 08/18/17 09:00 08/20/17 09:06 (Pill Splitter) 1 ea UNSCH PRN OTHER 08/18/17 09:00 (Duoneb Neb) 1 ampule Q4HR NEB NEB 08/19/17 20:00 08/22/17 09:05 (Duoneb Neb) 1 ampule Q2HR NEB PRN NEB 08/19/17 18:00 (Lopressor) 25 mg Q12HR PO 08/21/17 21:00 (Lopressor Inj) 5 mg NOW IV 08/21/17 23:20 08/22/17 23:19 Vital Signs / I&O Vital Signs Date Time Temp Pulse Resp B/P (MAP) Pulse Ox O2 Delivery O2 Flow Rate FiO2 08/22/17 06:00 102 08/22/17 04:00 99 08/22/17 04:00 98.7 99 91/54 (66) 99 08/22/17 02:00 99 08/22/17 00:00 98.5 108 119/85 (96) 100 08/22/17 00:00 108 08/21/17 22:00 108 08/21/17 20:20 91 Simple Mask 10.00 08/21/17 20:00 99.5 109 121/81 (94) 99 08/21/17 20:00 109 08/21/17 19:56 100 Partial Rebreather 15.00 08/21/17 18:00 107 08/21/17 16:00 98.1 108 20 118/79 (92) 94 08/21/17 16:00 108 08/21/17 14:00 105 08/21/17 12:00 102 08/21/17 12:00 98.9 102 19 116/78 (91) 88 I/O 1008/21/17 08/21/17 08/22/17 08/22/17 08/22/17 07:00 15:00 23:00 07:00 15:00 23:00 Intake Total 105 ml 1000 ml 808 ml 1351 ml Output Total 350 ml 550 ml 250 ml Balance -245 ml 1000 ml 258 ml -250 ml 1351 ml Intake Oral 0 ml IV Total 105 ml 1000 ml 808 ml 1351 ml Output Urine Total 350 ml 550 ml 250 ml # Voids 2 3 # Bowel Movements 0 2 0 Physical Exam GENERAL: Well-nourished, well-developed patient. SKIN: Warm and dry. HEAD: Normocephalic. EYES: No scleral icterus. No injection or drainage. NECK: Supple, trachea midline. No JVD or lymphadenopathy. CARDIOVASCULAR: Regular rate and rhythm without murmurs, gallops, or rubs. RESPIRATORY: Breath sounds equal bilaterally. No accessory muscle use. GASTROINTESTINAL: Abdomen soft, non-tender, nondistended. EXTREMITIES: No cyanosis, or edema. NEUROLOGICAL: Awake, alert, and oriented x 3. Non-focal. Laboratory Laboratory Tests Test 08/21/17 11:44 08/22/17 06:06 Activated Partial Thromboplast Time 45.0 SEC 43.3 SEC White Blood Count 5.7 TH/MM3 Red Blood Count 4.38 MIL/MM3 Hemoglobin 12.0 GM/DL Hematocrit 37.6 % Mean Corpuscular Volume 86.0 FL Mean Corpuscular Hemoglobin 27.4 PG Mean Corpuscular Hemoglobin Concent 31.9 % Red Cell Distribution Width 15.6 % Platelet Count 152 TH/MM3 Mean Platelet Volume 8.9 FL Neutrophils (%) (Auto) 78.6 % Lymphocytes (%) (Auto) 9.1 % Monocytes (%) (Auto) 11.0 % Eosinophils (%) (Auto) 0.8 % Basophils (%) (Auto) 0.5 % Neutrophils # (Auto) 4.5 TH/MM3 Lymphocytes # (Auto) 0.5 TH/MM3 Monocytes # (Auto) 0.6 TH/MM3 Eosinophils # (Auto) 0.0 TH/MM3 Basophils # (Auto) 0.0 TH/MM3 CBC Comment DIFF FINAL Differential Comment Blood Urea Nitrogen 19 MG/DL Creatinine 1.25 MG/DL Random Glucose 122 MG/DL Calcium Level 8.2 MG/DL Sodium Level 145 MEQ/L Potassium Level 3.7 MEQ/L Chloride Level 115 MEQ/L Carbon Dioxide Level 23.5 MEQ/L Anion Gap 7 MEQ/L Estimat Glomerular Filtration Rate 56 ML/MIN Imaging Last Impressions Chest X-Ray 08/21/17 0000 Signed Impressions: Service Date/Time: Monday, August 21, 2017 08:15 - CONCLUSION: Interval removal of an endotracheal tube with overall hypoinflation of the lungs and new right lower lobe atelectasis versus consolidation. The lung exam is consistent with volume overload or pulmonary edema. Michelle De Leon MD Brain MRI 08/19/17 0000 Signed Impressions: Service Date/Time: Saturday, August 19, 2017 13:02 - CONCLUSION: 1. Old left occipital lobe infarct 2. No evidence of acute intracranial pathology. Chronic ischemic changes as above. Leo Means MD Renal Ultrasound 08/18/17 0000 Signed Impressions: Service Date/Time: July 09:18 - CONCLUSION: Bilateral echogenic kidneys suggesting medical renal disease. Multiple simple cysts bilaterally. No evidence of hydronephrosis. Barry Chino MD Neck CTA 08/17/17 1519 Signed Impressions: Service Date/Time: Thursday, August 17, 2017 16:06 - CONCLUSION: 1. 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 2. 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 3. 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 4. The left vertebral artery is patent. Flow within the left vertebral is likely retrograde. 5. Plaquing but no hemodynamically significant stenosis seen at the left carotid bifurcation. 6. Reconstitution of the intracranial circulation on the right via the [place] of Ag. Chemo Pham MD Head CT 08/17/17 0000 Signed Impressions: Service Date/Time: Thursday, August 17, 2017 15:26 - CONCLUSION: 1. Old stroke, negative for an acute hemorrhage. 2. Findings were called to Dr. Healy at 15:40. Ancelmo Pham MD FACR Assessment and Plan Problem List: (1) Non-STEMI (non-ST elevated myocardial infarction) ICD Codes: I21.4 - Non-ST elevation (NSTEMI) myocardial infarction Plan: Prognosis poor. Patient has declines [facility] wants to try medications. Recommendations: - Continue aggressive medical therapy for CAD (2) Cerebrovascular disease ICD Codes: I67.9 - Cerebrovascular disease, unspecified (3) CAD (coronary artery disease) ICD Codes: I25.10 - Atherosclerotic heart disease of ione coronary artery without angina pectoris (4) Peripheral arterial disease ICD Codes: I73.9 - Peripheral vascular disease, unspecified (5) CVA (cerebral vascular accident) ICD Codes: I63.9 - Cerebral infarction, unspecified (6) Aortic valve replaced ICD Codes: Z95.2 - Presence of prosthetic heart valve (7) Refusal of treatment by patient ICD Codes: Z53.20 - Procedure and treatment not carried out because of patient' s decision for unspecified reasons Problem Qualifiers (1) CVA (cerebral vascular accident): Qualified Codes: I63.211 - Cerebral infarction due to unspecified occlusion or stenosis of right vertebral arteries Evangelist Jauregui MD Aug 22, 2017 10:41
[2017-08-22] MEDS ORDERED: LISI2.5T3 PO (14:52)
[2017-08-22] MEDS ORDERED: LEXA10TA PO (14:55)
[2017-08-22] MEDS ORDERED: FURO1TAB62 PO (14:55)
[2017-08-22] MEDS ORDERED: ROPI2 PO (14:55)
[2017-08-22] MEDS ORDERED: LAMO100T PO (14:55)
[2017-08-22] MEDS ORDERED: HEPARIN 25,000 UNITS-D5W 250 ML - PREMIX IV PRN (15:00)
[2017-08-22] MEDS: CLOPIDOGREL 75 MG TAB PO SCH (15:36)
[2017-08-23] VITALS (21 sets, daily range): BP systolic 89–117; BP diastolic 57–78; PULSE 84–102; RESP 20; TEMP 98.1–99.7; O2SAT 92–99
[2017-08-23] MEDS: RESP: ALBUTEROL 2.5 MG/IPRATROPIUM 0.5 MG NEB (SCH) NEB ×5 (03:46→19:38)
[2017-08-23] MEDS: CHLORHEXIDINE GLUCONATE 2 % 1 PACK (2 CLOTHS) TOP SCH (04:00)
[2017-08-23] MEDS: INSULIN NovoLIN REGULAR SUPPLEMENTAL SCALE SQ SCH ×2 (05:54)
[2017-08-23] MEDS: levETIRAcetam INJ 500 MG in SODIUM CHLORIDE 0.9% INJ 100 ML IV SCH ×2 (06:00→17:19)
[2017-08-23 06:08] LABS: AUTOMATED NEUTROPHIL # 4.7 TH/MM3 (1.8-7.7); BASOPHIL % 0.6 % (0.0-2.0); EOSINOPHIL % 0.7 % (0.0-4.0); HEMATOCRIT 35.6 % (39.0-51.0); HEMO FLAGS DIFF FINAL; LYMPH % 12.7 % (9.0-44.0); LYMPHOCYTE # 0.8 TH/MM3 (1.0-4.8); MEAN CELL VOLUME 85.2 FL (80.0-100.0); MEAN CORPUSCULAR HEMOGLOBIN 27.9 PG (27.0-34.0); MEAN CORPUSCULAR HGB CONC 32.8 % (32.0-36.0); MONO % 11.5 % (0.0-8.0); NEUT % 74.5 % (16.0-70.0); PLATELET COUNT 162 TH/MM3 (150-450); RED BLOOD COUNT 4.18 MIL/MM3 (4.50-5.90); RED CELL DISTRIBUTION WIDTH 15.4 % (11.6-17.2); WHITE BLOOD COUNT 6.3 TH/MM3 (4.0-11.0)
[2017-08-23 06:22] LABS: APTT (PATIENT) 48.8 SEC (24.3-30.1)
[2017-08-23 06:39] LABS: BICARBONATE 22.6 MEQ/L (21.0-32.0); POTASSIUM 3.5 MEQ/L (3.5-5.1)
[2017-08-23] MEDS: CHLORHEXIDINE 0.12% (ORAL KIT) 15 ML CUP MT SCH ×2 (08:00→20:00)
[2017-08-23] MEDS: ATORVASTATIN 20 MG TAB PO SCH (08:14)
[2017-08-23] MEDS: CLOPIDOGREL 75 MG TAB PO SCH (08:14)
[2017-08-23] MEDS: ASPIRIN 81 MG CHEW TAB PO SCH (08:14)
[2017-08-23] MEDS: METOPROLOL TARTRATE 25 MG TAB PO SCH ×2 (08:14→20:16)
[2017-08-23] MEDS: PANTOPRAZOLE SODIUM 40 MG VIAL IV PUSH SCH (08:14)
[2017-08-23] MEDS: ARTIFICIAL TEARS OPTH SOLN 15 ML BTL EACH EYE SCH ×3 (08:15→17:19)
[2017-08-23] MEDS: SODIUM CHLORIDE 0.9% FLUSH 10 ML FLUSH IV FLUSH SCH ×2 (08:15→20:16)
[2017-08-23] MEDS: DOCUSATE SODIUM 50 MG/SENNA 8.6 MG TAB PO SCH ×2 (08:15→20:16)
--- NOTE | 2017-08-23 08:52 | HHI.CCPN ---
Subjective Remarks/Hospital Course This is a 76-year-old male. Date of admission 08/17/2017. Past medical history includes hypertension, dyslipidemia, history of CVA and seizure disorder NOS. Patient presents to [facility] the following history. Over the past several weeks, patient has stopped on his own. All of his home medications according to because "he did not like how it made him feel". We currently do not have a listing of these medications. Irregardless, at 12: 30 PM this afternoon patient was having lunch when he had trouble striking his work on his right side. He laid down to rest when he is noted to have a seizure by his . E VAC was initiated and patient received 2 mg Ativan the field in route here. Patient received have another seizure while receiving CT the brain and was emergently intubated using etomidate and rocuronium CT brain revealed old left parieto-occipital and right orbital frontal CVA. 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 The RCA is intracerebral flow from the left internal carotid artery. There is also proximal right [employer] stenosis. Dr. Mathews did not recommend alteplase therapy. I discussed with neurology possibility of any further intervention such as stent retrieval/thromboembolectomy. She did not recommend this at this time. Recommending MRI brain and loading with levetiracetam for seizure activity. EEG will be performed urgently. At the present time, patient's systolic blood pressure is around 95. Patient spontaneously moving left upper and lower extremity. The right upper and lower extremities flaccid. Noted a past medical history is obtained from [id number]. is currently distraught and unable to provide meaningful information. Patient has not been to this facility before. 08/18: Remains intubated sedated. Troponin elevated to 24. Not a candidate for cardiac catheterization/PCI due to probable acute stroke. I will hold of consult to vascular surgery due to acute NE and patient not being a candidate for any intervention at this time. He remains critically ill with high predicted mortality. confirms that patient stopped taking ALL medications 1 year ago. 08/19 Patient is sedated with Diprivan, intubated and on Heparin drip. T;100.7 08/20 Patient s/p extubation yesterday on 3L oxygen with good sats. Afebrile. Awake and alert. MRI brain yesterday showed Old left occipital lobe infarct. No evidence of acute intracranial pathology. Chronic ischemic changes. 08/21 No events overnight. On 4L oxygen with good sats. Afebrile. Kept NPO per speech. renal function is improving with Cr: 1.55 from 1.27. On Heparin drip. 08/22 Patient is awake, alert lying in bed in NAD. 08/23 Patient is on 6L simple mask with good sats. On Heparin drip. Objective Vital Signs Date Time Temp Pulse Resp B/P (MAP) Pulse Ox O2 Delivery O2 Flow Rate FiO2 08/23/17 07:47 99 Simple Mask 6.00 08/23/17 06:00 97 08/23/17 04:00 98.3 20 107/70 (82) 08/19/17 16:00 40 Intake and Output 08/23/17 08/23/17 08/24/17 08:00 16:00 00:00 Intake Total 0 ml Output Total 300 ml Balance -300 ml Result Diagram: 08/23/17 0411 08/23/17 0411 Other Results Laboratory Tests Test 08/23/17 04:11 White Blood Count 6.3 TH/MM3 Red Blood Count 4.18 MIL/MM3 Hemoglobin 11.7 GM/DL Hematocrit 35.6 % Mean Corpuscular Volume 85.2 FL Mean Corpuscular Hemoglobin 27.9 PG Mean Corpuscular Hemoglobin Concent 32.8 % Red Cell Distribution Width 15.4 % Platelet Count 162 TH/MM3 Mean Platelet Volume 9.0 FL Neutrophils (%) (Auto) 74.5 % Lymphocytes (%) (Auto) 12.7 % Monocytes (%) (Auto) 11.5 % Eosinophils (%) (Auto) 0.7 % Basophils (%) (Auto) 0.6 % Neutrophils # (Auto) 4.7 TH/MM3 Lymphocytes # (Auto) 0.8 TH/MM3 Monocytes # (Auto) 0.7 TH/MM3 Eosinophils # (Auto) 0.0 TH/MM3 Basophils # (Auto) 0.0 TH/MM3 CBC Comment DIFF FINAL Differential Comment Activated Partial Thromboplast Time 48.8 SEC Blood Urea Nitrogen 23 MG/DL Creatinine 1.31 MG/DL Random Glucose 88 MG/DL Calcium Level 8.5 MG/DL Sodium Level 145 MEQ/L Potassium Level 3.5 MEQ/L Chloride Level 111 MEQ/L Carbon Dioxide Level 22.6 MEQ/L Anion Gap 11 MEQ/L Estimat Glomerular Filtration Rate 53 ML/MIN Imaging Last Impressions Chest X-Ray 08/21/17 0000 Signed Impressions: Service Date/Time: Monday, August 21, 2017 08:15 - CONCLUSION: Interval removal of an endotracheal tube with overall hypoinflation of the lungs and new right lower lobe atelectasis versus consolidation. The lung exam is consistent with volume overload or pulmonary edema. Michelle De Leon MD Brain MRI 08/19/17 0000 Signed Impressions: Service Date/Time: Saturday, August 19, 2017 13:02 - CONCLUSION: 1. Old left occipital lobe infarct 2. No evidence of acute intracranial pathology. Chronic ischemic changes as above. Leo Means MD Renal Ultrasound 08/18/17 0000 Signed Impressions: Service Date/Time: July 09:18 - CONCLUSION: Bilateral echogenic kidneys suggesting medical renal disease. Multiple simple cysts bilaterally. No evidence of hydronephrosis. Barry Chino MD Neck CTA 08/17/17 1519 Signed Impressions: Service Date/Time: Thursday, August 17, 2017 16:06 - CONCLUSION: 1. 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 2. 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 3. 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 4. The left vertebral artery is patent. Flow within the left vertebral is likely retrograde. 5. Plaquing but no hemodynamically significant stenosis seen at the left carotid bifurcation. 6. Reconstitution of the intracranial circulation on the right via the [place] of Ag. Chemo Pham MD Head CT 08/17/17 0000 Signed Impressions: Service Date/Time: Thursday, August 17, 2017 15:26 - CONCLUSION: 1. Old stroke, negative for an acute hemorrhage. 2. Findings were called to Dr. Healy at 15:40. Ancelmo Pham MD FACR Objective Remarks GENERAL: 76-year-old male lying in bed in [facility] SKIN: Warm and dry. No rash HEAD: Atraumatic. Normocephalic. EYES: Pupils equal and round about 3 mm bilaterally and reactive to 2 mm. No scleral icterus. No injection or drainage. ENT: No nasal bleeding or discharge. Mucous membranes pink and moist. Orotracheally intubated NECK: Trachea midline. No JVD. Bilateral carotid bruit appreciated CARDIOVASCULAR: Regular rate and rhythm. S1, S2 no S4. 2/6 systolic murmur patient left lower sternal border. Well-healed sternotomy scar noted RESPIRATORY: No accessory muscle use. Clear to auscultation. Breath sounds equal bilaterally. GASTROINTESTINAL: Abdomen soft, non-tender, scaphoid. Hypoactive bowel sounds appreciated MUSCULOSKELETAL: Extremities without noted in peripheral edema. No obvious deformities. NEUROLOGICAL: Awake and alert A/P Assessment and Plan Neuro/Psych: Seizure disorder Rule out acute CVA Old left parietal-occipital/right orbital frontal CVA Monitor neuro status and avoid sedatives 08/20 MRI brain: Old left occipital lobe infarct. No evidence of acute intracranial pathology. Chronic ischemic changes. CT brain 08/17 revealed a left parietal-occipital/right orbital frontal CVA. CTA brain/neck -occluded right RCA with intracerebral flow on the left, left carotid artery with moderate stenosis. Right vertebral left subclavian occluded. Proximal right [employer] stenosis. Posterior circulation with patent flow likely from anterior left carotid source. Continue propofol for sedation, daily sedation vacation Neuro is following, On Keppra 500 mg IV twice a day Dr. Kessler Did not recommend any intervention for right ICA, left subclavian right vertebral occlusions including TPA or stent retrieval Also not a candidate for acute vascular intervention due to acute NE Lorazepam when necessary breakthrough seizures Seizure precautions Dr. Mathews following CV: NSTEMI Coronary artery disease status post CABG 2 History of hypertension History dyslipidemia 3.1 cm ascending aortic aneurysm History of AAA repair Right ICA stenosis Right vertebral stenosis Left subclavian stenosis Monitor HR and BP keep MAP>65mmHG Echo showed EF 35-40% with posterior hypokinesis on Atorvastatin, ASA 81mg daily, Lopressor 25mg BID, Plavix 75mg daily added Cards- Dr. Estes cardiology, Continue IV Heparin Neuro did not recommend intervention with IR due to likely chronicity of occlusions Resp: Acute respiratory failure secondary to altered mental status Extubated 08/19 Continue with oxygen keep sat >92% Albuterol/ipratropium aerosols every 6 hours with albuterol aerosols every 2 hours when necessary dyspnea Check CXR, place on Mucinex for cough GI: On Pureed Pantoprazole for GI prophylaxis Docusate sodium/senna 1 tablet twice a day for bowel regimen Endo: D/c SSI -patient has been euglycemia and doesn't require any coverage. Renal: Acute kidney injury Monitor renal function, I/O's, electrolytes replacement as needed. Avoid nephrotoxins Renal US: multiple simple cysts b/l, no hydronephrosis Cr: 1.31 today Heme: Monitor CBC, coags- on Heparin drip ID: Monitor for signs of infection( Fever, WBC) check sputum cx MSK: Osteoporosis/osteoarthritis PT/OT evaluate and treat Access - Utilize peripheral IV. Prophylaxis - GI - pantoprazole - DVT - SCD/IV Heparin Will sign off and transfer care to [facility] Level 3 Nazario Butcher MD Aug 23, 2017 08:51
[2017-08-23] MEDS: guaiFENesin E.R. 600 MG TAB PO SCH ×2 (09:00→20:09)
--- NOTE | 2017-08-23 10:43 | RADRPT ---
EXAM DATE/TIME: 08/23/2017 09:23 [place] COMPARISON: CHEST SINGLE AP, August 21, 2017, 8:15. INDICATIONS : Shortness of breath. MEDICAL HISTORY : None. SURGICAL HISTORY : None. ENCOUNTER: Subsequent ACUITY: 1 week PAIN SCORE: 0/10 LOCATION: chest FINDINGS: Redemonstration of diffuse interstitial prominence with stable right lower lung zone airspace consoli dation. Cardiomediastinal contours are stable. Central pulmonary vasculature is mildly indistinct. Re mainder of the exam is unchanged. CONCLUSION: 1. Stable mild positive fluid balance. 2. Stable right lower lung zone airspace consolidation. 3. No significant interval change. Jonathon Pardo MD on August 23, 2017 at 10:40 Board Certified Radiologist. This report was verified electronically.
[2017-08-23] MEDS ORDERED: BUMETANIDE INJ 1 MG/4 ML VIAL IV PUSH ONE (13:00)
--- NOTE | 2017-08-23 17:08 | PD.CARD.PN ---
Subjective Subjective Remarks still on 4L O2 No CV complaints Objective Medications Current Medications Medications (Trade) Dose Ordered Sig/Paul Route Start Time Stop Time Status Last Admin (Tylenol) 650 mg Q6H PRN PO 08/17/17 17:15 (Tears Naturale Opth Soln) 1 drop TID EACH EYE 08/17/17 18:00 08/20/17 18:00 (NS Flush) 2 ml UNSCH PRN IV FLUSH 08/17/17 17:30 (NS Flush) 2 ml BID IV FLUSH 08/17/17 21:00 08/23/17 08:15 (Protonix Inj) 40 mg DAILY IV PUSH 08/18/17 09:00 08/23/17 08:14 (Zofran Inj) 4 mg Q6H PRN IV PUSH 08/17/17 17:30 Miscellaneous Information 1 Q361D XX 08/17/17 17:30 (Chlorhexidine 2% Cloth) Taper DAILY@04 TOP 08/18/17 04:00 08/14/18 03:59 08/22/17 04:00 (Chlorhexidine 2% Cloth) 3 pack UNSCH PRN TOP 08/17/17 17:30 (Fernanda-Colace) 1 tab BID PO 08/17/17 21:00 08/22/17 20:36 (Milk Of Magnesia Liq) 30 ml Q12H PRN PO 08/17/17 17:30 (Senokot) 17.2 mg Q12H PRN PO 08/17/17 17:30 (Dulcolax Supp) 10 mg DAILY PRN RECTAL 08/17/17 17:30 (Lactulose Liq) 30 ml DAILY PRN PO 08/17/17 17:30 (Peridex 0.12% Liq) 15 ml BID@08,20 MT 08/17/17 20:00 08/19/17 08:48 (D50w (Vial) Inj) 50 ml UNSCH PRN IV PUSH 08/17/17 17:30 (Glucagon Inj) 1 mg UNSCH PRN OTHER 08/17/17 17:30 Levetriacetam 500 mg/Sodium Chloride 105 ml @ 420 mls/hr Q12H IV 08/18/17 06:00 08/23/17 06:00 (Ativan Inj) 2 mg Q10M PRN IV PUSH 08/17/17 17:30 (Trandate Inj) 10 mg Q2H PRN IV PUSH 08/17/17 17:30 (Aspirin Chew) 81 mg DAILY PO 08/18/17 09:00 08/23/17 08:14 (Lipitor) 20 mg DAILY PO 08/18/17 09:00 08/23/17 08:14 (Pill Splitter) 1 ea UNSCH PRN OTHER 08/18/17 09:00 (Duoneb Neb) 1 ampule Q4HR NEB NEB 08/19/17 20:00 08/23/17 15:54 (Duoneb Neb) 1 ampule Q2HR NEB PRN NEB 08/19/17 18:00 (Lopressor) 25 mg Q12HR PO 08/21/17 21:00 08/23/17 08:14 (Plavix) 75 mg DAILY PO 08/22/17 14:00 08/23/17 08:14 Heparin Sodium/ Dextrose 250 ml @ 8 mls/hr TITRATE PRN IV 08/22/17 15:00 (Flu (Quadrivalent) Vaccine Inj) 0.5 ml ONCE ONCE IM 08/24/17 10:00 08/24/17 10:01 (Pneumovax-23 Inj) 25 mcg ONCE ONCE IM 08/24/17 10:00 08/24/17 10:01 (Mucinex Er) 600 mg BID PO 08/23/17 09:00 Vital Signs / I&O Vital Signs Date Time Temp Pulse Resp B/P (MAP) Pulse Ox O2 Delivery O2 Flow Rate FiO2 08/23/17 12:00 98.3 91 100/65 (77) 94 08/23/17 12:00 91 08/23/17 11:00 91 89/57 (68) 95 08/23/17 10:00 93 94/69 (77) 97 08/23/17 10:00 93 08/23/17 09:00 95 103/72 (82) 97 08/23/17 08:00 98.1 99 115/74 (88) 97 08/23/17 08:00 99 08/23/17 07:47 99 Simple Mask 6.00 08/23/17 07:00 91 108/67 (81) 98 08/23/17 06:00 97 08/23/17 04:00 97 08/23/17 04:00 98.3 97 20 107/70 (82) 97 08/23/17 03:47 98 Simple Mask 6.00 08/23/17 02:00 96 08/23/17 00:00 99 08/23/17 00:00 98.3 98 111/73 (86) 97 08/22/17 23:48 97 Simple Mask 6.00 08/22/17 22:00 98 08/22/17 22:00 98.3 98 98/69 (79) 97 08/22/17 20:39 94 Simple Mask 6.00 08/22/17 20:00 103 08/22/17 18:51 100 08/22/17 18:00 104 105/65 (78) 93 I/O 08/22/17 08/22/17 08/22/17 08/23/17 08/23/17 08/23/17 07:00 15:00 23:00 07:00 15:00 23:00 Intake Total 1351 ml 349 ml 105 ml 96 ml Output Total 250 ml 1550 ml 300 ml Balance -250 ml 1351 ml -1201 ml -195 ml 96 ml Intake Oral 120 ml 0 ml IV Total 1351 ml 229 ml 105 ml 96 ml Output Urine Total 250 ml 1550 ml 300 ml # Voids 3 # Bowel Movements 0 1 2 Physical Exam GENERAL: Well-nourished, well-developed patient. SKIN: Warm and dry. HEAD: Normocephalic. EYES: No scleral icterus. No injection or drainage. NECK: Supple, trachea midline. No JVD or lymphadenopathy. CARDIOVASCULAR: Regular rate and rhythm without murmurs, gallops, or rubs. RESPIRATORY: Breath sounds equal bilaterally. No accessory muscle use. GASTROINTESTINAL: Abdomen soft, non-tender, nondistended. EXTREMITIES: No cyanosis, or edema. NEUROLOGICAL: Awake, alert, and oriented x 3. Non-focal. Laboratory Laboratory Tests Test 08/23/17 04:11 White Blood Count 6.3 TH/MM3 Red Blood Count 4.18 MIL/MM3 Hemoglobin 11.7 GM/DL Hematocrit 35.6 % Mean Corpuscular Volume 85.2 FL Mean Corpuscular Hemoglobin 27.9 PG Mean Corpuscular Hemoglobin Concent 32.8 % Red Cell Distribution Width 15.4 % Platelet Count 162 TH/MM3 Mean Platelet Volume 9.0 FL Neutrophils (%) (Auto) 74.5 % Lymphocytes (%) (Auto) 12.7 % Monocytes (%) (Auto) 11.5 % Eosinophils (%) (Auto) 0.7 % Basophils (%) (Auto) 0.6 % Neutrophils # (Auto) 4.7 TH/MM3 Lymphocytes # (Auto) 0.8 TH/MM3 Monocytes # (Auto) 0.7 TH/MM3 Eosinophils # (Auto) 0.0 TH/MM3 Basophils # (Auto) 0.0 TH/MM3 CBC Comment DIFF FINAL Differential Comment Activated Partial Thromboplast Time 48.8 SEC Blood Urea Nitrogen 23 MG/DL Creatinine 1.31 MG/DL Random Glucose 88 MG/DL Calcium Level 8.5 MG/DL Sodium Level 145 MEQ/L Potassium Level 3.5 MEQ/L Chloride Level 111 MEQ/L Carbon Dioxide Level 22.6 MEQ/L Anion Gap 11 MEQ/L Estimat Glomerular Filtration Rate 53 ML/MIN Imaging Last Impressions Chest X-Ray 08/23/17 0000 Signed Impressions: Service Date/Time: Wednesday, August 23, 2017 09:23 - CONCLUSION: 1. Stable mild positive fluid balance. 2. Stable right lower lung zone airspace consolidation. 3. No significant interval change. Jonathon Pardo MD Brain MRI 08/19/17 0000 Signed Impressions: Service Date/Time: Saturday, August 19, 2017 13:02 - CONCLUSION: 1. Old left occipital lobe infarct 2. No evidence of acute intracranial pathology. Chronic ischemic changes as above. Leo Means MD Renal Ultrasound 08/18/17 0000 Signed Impressions: Service Date/Time: July 09:18 - CONCLUSION: Bilateral echogenic kidneys suggesting medical renal disease. Multiple simple cysts bilaterally. No evidence of hydronephrosis. Barry Chino MD Neck CTA 08/17/17 1519 Signed Impressions: Service Date/Time: Thursday, August 17, 2017 16:06 - CONCLUSION: 1. 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 2. 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 3. 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 4. The left vertebral artery is patent. Flow within the left vertebral is likely retrograde. 5. Plaquing but no hemodynamically significant stenosis seen at the left carotid bifurcation. 6. Reconstitution of the intracranial circulation on the right via the [place] of Ag. Chemo Pham MD Head CT 08/17/17 0000 Signed Impressions: Service Date/Time: Thursday, August 17, 2017 15:26 - CONCLUSION: 1. Old stroke, negative for an acute hemorrhage. 2. Findings were called to Dr. Healy at 15:40. Ancelmo Pham MD FACR Assessment and Plan Problem List: (1) Non-STEMI (non-ST elevated myocardial infarction) ICD Codes: I21.4 - Non-ST elevation (NSTEMI) myocardial infarction Plan: Prognosis poor. Patient has decline LHC, medications for CAD and any invasive therapies in the past. He declines [facility] wants to cont medical therapy. D/C heparin drip Cont ASA, Plavix, Statin, BB, hold ACEi given LIGIA Cont gentle diuresis Strict I&O (2) Cerebrovascular disease ICD Codes: I67.9 - Cerebrovascular disease, unspecified (3) CAD (coronary artery disease) ICD Codes: I25.10 - Atherosclerotic heart disease of [place] coronary artery without angina pectoris (4) Peripheral arterial disease ICD Codes: I73.9 - Peripheral vascular disease, unspecified (5) CVA (cerebral vascular accident) ICD Codes: I63.9 - Cerebral infarction, unspecified (6) Aortic valve replaced ICD Codes: Z95.2 - Presence of prosthetic heart valve (7) Refusal of treatment by patient ICD Codes: Z53.20 - Procedure and treatment not carried out because of patient' s decision for unspecified reasons Problem Qualifiers (1) CVA (cerebral vascular accident): Qualified Codes: I63.211 - Cerebral infarction due to unspecified occlusion or stenosis of right vertebral arteries Evangelist Jauregui MD Aug 23, 2017 17:08
[2017-08-24] VITALS (11 sets, daily range): BP systolic 85–113; BP diastolic 60–75; PULSE 85–97; RESP 23–57; TEMP 97.5–99.5; O2SAT 81–100
[2017-08-24] MEDS: CHLORHEXIDINE GLUCONATE 2 % 1 PACK (2 CLOTHS) TOP SCH (04:00)
[2017-08-24] MEDS: levETIRAcetam INJ 500 MG in SODIUM CHLORIDE 0.9% INJ 100 ML IV SCH ×2 (05:17→18:23)
[2017-08-24 06:10] LABS: AUTOMATED NEUTROPHIL # 6.3 TH/MM3 (1.8-7.7); BASOPHIL % 0.3 % (0.0-2.0); EOSINOPHIL # 0.1 TH/MM3 (0-0.4); EOSINOPHIL % 1.2 % (0.0-4.0); HEMATOCRIT 37.9 % (39.0-51.0); HEMO FLAGS DIFF FINAL; LYMPH % 9.6 % (9.0-44.0); LYMPHOCYTE # 0.8 TH/MM3 (1.0-4.8); MEAN CELL VOLUME 85.8 FL (80.0-100.0); MEAN CORPUSCULAR HEMOGLOBIN 27.9 PG (27.0-34.0); MEAN CORPUSCULAR HGB CONC 32.6 % (32.0-36.0); MONO % 11.7 % (0.0-8.0); NEUT % 77.2 % (16.0-70.0); PLATELET COUNT 188 TH/MM3 (150-450); RED BLOOD COUNT 4.42 MIL/MM3 (4.50-5.90); RED CELL DISTRIBUTION WIDTH 15.2 % (11.6-17.2); WHITE BLOOD COUNT 8.2 TH/MM3 (4.0-11.0)
[2017-08-24 06:23] LABS: APTT (PATIENT) 31.8 SEC (24.3-30.1)
[2017-08-24 06:35] LABS: BICARBONATE 27.3 MEQ/L (21.0-32.0); POTASSIUM 3.8 MEQ/L (3.5-5.1)
[2017-08-24] MEDS: CHLORHEXIDINE 0.12% (ORAL KIT) 15 ML CUP MT SCH ×2 (08:00→20:00)
[2017-08-24] MEDS: RESP: ALBUTEROL 2.5 MG/IPRATROPIUM 0.5 MG NEB (PRN) NEB ×2 (08:00→20:58)
--- NOTE | 2017-08-24 08:41 | HHI.PR ---
Subjective Remarks Follow up NSTEMI, CVA. Patient states that he feels better today. States that his cough is improving. He denies chest pain, dyspnea, nausea, vomiting. Objective Vitals Vital Signs Date Time Temp Pulse Resp B/P (MAP) Pulse Ox O2 Delivery O2 Flow Rate FiO2 08/24/17 08:00 97 Simple Mask 6.00 08/24/17 06:00 94 08/24/17 04:00 95 08/24/17 04:00 98.2 95 57 109/73 (85) 96 08/24/17 02:00 86 08/24/17 00:00 97.5 96 25 106/75 (85) 96 08/24/17 00:00 96 08/23/17 22:00 93 08/23/17 20:00 102 08/23/17 20:00 99.7 102 106/76 (86) 95 08/23/17 19:40 92 Simple Mask 6.00 08/23/17 18:09 94 08/23/17 17:00 99 106/71 (83) 94 08/23/17 16:00 98.1 102 117/78 (91) 93 08/23/17 16:00 102 08/23/17 15:00 89 91/60 (70) 93 08/23/17 14:00 84 96/61 (73) 97 08/23/17 14:00 84 08/23/17 13:01 96 103/75 (84) 93 08/23/17 12:00 98.3 91 100/65 (77) 94 08/23/17 12:00 91 08/23/17 11:00 91 89/57 (68) 95 08/23/17 10:00 93 94/69 (77) 97 08/23/17 10:00 93 08/23/17 09:00 95 103/72 (82) 97 I/O 08/23/17 08/23/17 08/23/17 08/24/17 08/24/17 08/24/17 07:00 15:00 23:00 07:00 15:00 23:00 Intake Total 105 ml 286 ml 100 ml Output Total 300 ml 750 ml 970 ml Balance -195 ml -464 ml -870 ml Intake Oral 0 ml 90 ml IV Total 105 ml 196 ml 100 ml Output Urine Total 300 ml 750 ml 970 ml # Bowel Movements 2 1 3 Result Diagram: 08/24/17 0505 08/24/17 0505 Imaging Last Impressions Chest X-Ray 08/23/17 0000 Signed Impressions: Service Date/Time: Wednesday, August 23, 2017 09:23 - CONCLUSION: 1. Stable mild positive fluid balance. 2. Stable right lower lung zone airspace consolidation. 3. No significant interval change. Jonathon Pardo MD Brain MRI 08/19/17 0000 Signed Impressions: Service Date/Time: Saturday, August 19, 2017 13:02 - CONCLUSION: 1. Old left occipital lobe infarct 2. No evidence of acute intracranial pathology. Chronic ischemic changes as above. Leo Means MD Renal Ultrasound 08/18/17 0000 Signed Impressions: Service Date/Time: July 09:18 - CONCLUSION: Bilateral echogenic kidneys suggesting medical renal disease. Multiple simple cysts bilaterally. No evidence of hydronephrosis. Barry Chino MD Neck CTA 08/17/17 1519 Signed Impressions: Service Date/Time: Thursday, August 17, 2017 16:06 - CONCLUSION: 1. 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 2. 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 3. 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 4. The left vertebral artery is patent. Flow within the left vertebral is likely retrograde. 5. Plaquing but no hemodynamically significant stenosis seen at the left carotid bifurcation. 6. Reconstitution of the intracranial circulation on the right via the [place] of Ag. Chemo Pham MD Head CT 08/17/17 0000 Signed Impressions: Service Date/Time: Thursday, August 17, 2017 15:26 - CONCLUSION: 1. Old stroke, negative for an acute hemorrhage. 2. Findings were called to Dr. Healy at 15:40. Ancelmo Pham MD FACR Objective Remarks General: Thin elderly male in no acute distress. Heart: Regular rate and rhythm. No murmur. Lungs: Scattered rhonchi. Breathing is nonlabored. Abdomen: Soft, nontender, nondistended. Extremities: No lower extremity edema. SCDs. Psych: Alert and oriented. Procedures None Urinary Catheter: No Vascular Central Line Catheter: No A/P Problem List: (1) Acute respiratory failure ICD Code: J96.00 - Acute respiratory failure, unspecified whether with hypoxia or hypercapnia (2) Seizure ICD Code: R56.9 - Unspecified convulsions (3) Ascending aortic aneurysm ICD Code: I71.2 - Thoracic aortic aneurysm, without rupture (4) Dyslipidemia ICD Code: E78.5 - Hyperlipidemia, unspecified (5) Coronary artery disease ICD Code: I25.10 - Atherosclerotic heart disease of [place] coronary artery without angina pectoris (6) Acute kidney injury ICD Code: N17.9 - Acute kidney failure, unspecified (7) CVA (cerebral vascular accident) ICD Code: I63.9 - Cerebral infarction, unspecified Assessment and Plan 1. Acute respiratory failure: Extubated 08/19/17. Continue supplemental oxygen, bronchodilators. 2. Pneumonia: Continue Mucinex for cough. Chest x-ray shows right lower lung airspace consolidation. Start Levaquin. 3. NSTEMI: Appreciate cardiology recommendations. No interventions planned at this time. Continue medical management with aspirin, Plavix, statin, beta mitra. Patient has history of coronary artery disease and is status post CABG. 4. Heme positive stool: No other bleeding noted. Hemoglobin trending up. Monitor H&H. Heparin drip discontinued. 5. Seizure disorder, old CVA: Appreciate neurology recommendations. Continue Keppra. Seizure precautions. Lorazepam as needed for breakthrough seizures. 6. Right internal carotid artery stenosis, right vertebral artery stenosis, left subclavian stenosis: Continue current management. Neurology does not recommend intervention with interventional radiology secondary to likely chronicity of these occlusions. 7. Acute kidney injury: Creatinine trending up slightly. Caution with IV fluids secondary to CHF. 8. GI prophylaxis: Protonix. 9. DVT prophylaxis: SCDs. 10. Chronic systolic congestive heart failure: Caution with IV fluids. Not clinically in fluid overload. Echocardiogram 08/18/17 shows moderate to severely reduced systolic function with ejection fraction 35-40%. Problem Qualifiers (1) Acute respiratory failure: Qualified Codes: J96.00 - Acute respiratory failure, unspecified whether with hypoxia or hypercapnia (2) Coronary artery disease: Qualified Codes: I25.10 - Atherosclerotic heart disease of [place] coronary artery without angina pectoris (3) CVA (cerebral vascular accident): Qualified Codes: I63.211 - Cerebral infarction due to unspecified occlusion or stenosis of right vertebral arteries Usman Hanson MD Aug 24, 2017 08:41
[2017-08-24] MEDS: PANTOPRAZOLE SODIUM 40 MG VIAL IV PUSH SCH (09:00)
[2017-08-24] MEDS: SODIUM CHLORIDE 0.9% FLUSH 10 ML FLUSH IV FLUSH SCH ×2 (09:00→21:00)
[2017-08-24] MEDS: ARTIFICIAL TEARS OPTH SOLN 15 ML BTL EACH EYE SCH ×3 (09:00→18:00)
[2017-08-24] MEDS: ASPIRIN 81 MG CHEW TAB PO SCH (09:31)
[2017-08-24] MEDS: ATORVASTATIN 20 MG TAB PO SCH (09:31)
[2017-08-24] MEDS: METOPROLOL TARTRATE 25 MG TAB PO SCH ×2 (09:32→21:01)
[2017-08-24] MEDS: DOCUSATE SODIUM 50 MG/SENNA 8.6 MG TAB PO SCH ×2 (09:32→21:01)
[2017-08-24] MEDS: CLOPIDOGREL 75 MG TAB PO SCH (09:32)
[2017-08-24] MEDS: guaiFENesin SOLUTION 200 MG/10 ML CUP PO PRN ×2 (09:33→21:02)
[2017-08-24] MEDS: LEVOFLOXACIN 750 MG PREMIX INJ 150 ML IV SCH (09:38)
[2017-08-24] MEDS ORDERED: INFLUENZA VIRUS VACCINE (QUADRIVALENT) 0.5 ML SYR IM ONE (10:00)
[2017-08-24] MEDS ORDERED: PNEUMOCOCCAL POLYVALENT INJ 25 MCG/0.5 ML SYR IM ONE (10:00)
[2017-08-24 17:22] LABS: HEMATOCRIT 37.5 % (39.0-51.0); REVIEW FLAG FINAL
[2017-08-24] MEDS ORDERED: diphenhydrAMINE HCL 25 MG CAP PO ONE (20:30)
[2017-08-25] VITALS (16 sets, daily range): BP systolic 88–112; BP diastolic 57–77; PULSE 81–90; RESP 19–34; TEMP 98–99.1; O2SAT 90–98
[2017-08-25] MEDS: CHLORHEXIDINE GLUCONATE 2 % 1 PACK (2 CLOTHS) TOP SCH (04:00)
[2017-08-25] MEDS: levETIRAcetam INJ 500 MG in SODIUM CHLORIDE 0.9% INJ 100 ML IV SCH ×2 (05:43→18:49)
[2017-08-25 06:52] LABS: APTT (PATIENT) 32.2 SEC (24.3-30.1)
[2017-08-25 07:11] LABS: BICARBONATE 29.2 MEQ/L (21.0-32.0); POTASSIUM 3.8 MEQ/L (3.5-5.1)
[2017-08-25 07:14] LABS: AUTOMATED NEUTROPHIL # 6.1 TH/MM3 (1.8-7.7); BASOPHIL % 0.3 % (0.0-2.0); EOSINOPHIL # 0.1 TH/MM3 (0-0.4); EOSINOPHIL % 1.2 % (0.0-4.0); HEMATOCRIT 36.8 % (39.0-51.0); HEMO FLAGS DIFF FINAL; LYMPH % 11.7 % (9.0-44.0); LYMPHOCYTE # 0.9 TH/MM3 (1.0-4.8); MEAN CELL VOLUME 84.9 FL (80.0-100.0); MEAN CORPUSCULAR HGB CONC 32.9 % (32.0-36.0); MONO % 10.2 % (0.0-8.0); NEUT % 76.6 % (16.0-70.0); PLATELET COUNT 198 TH/MM3 (150-450); RED BLOOD COUNT 4.34 MIL/MM3 (4.50-5.90)
[2017-08-25] MEDS: CHLORHEXIDINE 0.12% (ORAL KIT) 15 ML CUP MT SCH (08:00)
[2017-08-25] MEDS: SODIUM CHLORIDE 0.9% FLUSH 10 ML FLUSH IV FLUSH SCH ×2 (08:45→21:00)
[2017-08-25] MEDS: LEVOFLOXACIN 750 MG PREMIX INJ 150 ML IV SCH (08:45)
[2017-08-25] MEDS: ARTIFICIAL TEARS OPTH SOLN 15 ML BTL EACH EYE SCH ×2 (08:45→13:00)
[2017-08-25] MEDS: ATORVASTATIN 20 MG TAB PO SCH (08:46)
[2017-08-25] MEDS: DOCUSATE SODIUM 50 MG/SENNA 8.6 MG TAB PO SCH (08:46)
[2017-08-25] MEDS: METOPROLOL TARTRATE 25 MG TAB PO SCH ×2 (08:46→21:00)
[2017-08-25] MEDS: PANTOPRAZOLE SODIUM 40 MG VIAL IV PUSH SCH (08:46)
[2017-08-25] MEDS: CLOPIDOGREL 75 MG TAB PO SCH (08:47)
[2017-08-25] MEDS: ASPIRIN 81 MG CHEW TAB PO SCH (08:47)
[2017-08-25] MEDS: RESP: ALBUTEROL 2.5 MG/IPRATROPIUM 0.5 MG NEB (PRN) NEB ×3 (09:02→21:50)
--- NOTE | 2017-08-25 09:27 | HHI.PR ---
Subjective Remarks Follow up pneumonia, NSTEMI, CVA. Patient states that he feels "OK" today. Denies dyspnea, chest pain. Does have cough, nonproductive. No nausea/vomiting. Objective Vitals Vital Signs Date Time Temp Pulse Resp B/P (MAP) Pulse Ox O2 Delivery O2 Flow Rate FiO2 08/25/17 08:15 95 Nasal Cannula 6.00 08/25/17 06:00 82 08/25/17 04:09 96 Nasal Cannula 6.00 08/25/17 04:00 87 08/25/17 04:00 98.3 87 28 101/71 (81) 95 08/25/17 02:00 90 08/25/17 00:23 98 Nasal Cannula 6.00 08/25/17 00:00 87 08/25/17 00:00 98.4 87 27 112/77 (89) 98 08/24/17 22:00 97 08/24/17 20:59 100 Nasal Cannula 6.00 08/24/17 20:00 97 08/24/17 20:00 99.5 97 39 113/69 (84) 81 08/24/17 18:00 90 08/24/17 16:00 98.5 85 31 85/60 (68) 95 08/24/17 12:00 97.8 88 32 94/64 (74) 97 I/O 08/24/17 08/24/17 08/24/17 08/25/17 08/25/17 08/25/17 07:00 15:00 23:00 07:00 15:00 23:00 Intake Total 100 ml 350 ml 479 ml Output Total 970 ml 450 ml Balance -870 ml -100 ml 479 ml Intake Oral 200 ml 240 ml IV Total 100 ml 150 ml 239 ml Output Urine Total 970 ml 450 ml # Voids 3 # Bowel Movements 3 0 1 Result Diagram: 08/25/17 0547 08/25/17 0547 Imaging Last Impressions Chest X-Ray 08/23/17 0000 Signed Impressions: Service Date/Time: Wednesday, August 23, 2017 09:23 - CONCLUSION: 1. Stable mild positive fluid balance. 2. Stable right lower lung zone airspace consolidation. 3. No significant interval change. Jonathon Pardo MD Brain MRI 08/19/17 0000 Signed Impressions: Service Date/Time: Saturday, August 19, 2017 13:02 - CONCLUSION: 1. Old left occipital lobe infarct 2. No evidence of acute intracranial pathology. Chronic ischemic changes as above. Leo Means MD Renal Ultrasound 08/18/17 0000 Signed Impressions: Service Date/Time: July 09:18 - CONCLUSION: Bilateral echogenic kidneys suggesting medical renal disease. Multiple simple cysts bilaterally. No evidence of hydronephrosis. Barry Chino MD Neck CTA 08/17/17 1519 Signed Impressions: Service Date/Time: Thursday, August 17, 2017 16:06 - CONCLUSION: 1. 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 2. 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 3. 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 4. The left vertebral artery is patent. Flow within the left vertebral is likely retrograde. 5. Plaquing but no hemodynamically significant stenosis seen at the left carotid bifurcation. 6. Reconstitution of the intracranial circulation on the right via the [place] of [place]. Chemo Pham MD Head CT 08/17/17 0000 Signed Impressions: Service Date/Time: Thursday, August 17, 2017 15:26 - CONCLUSION: 1. Old stroke, negative for an acute hemorrhage. 2. Findings were called to Dr. Healy at 15:40. Ancelmo Pham MD FACR Objective Remarks General: Thin elderly male in no acute distress. Heart: Regular rate and rhythm. No murmur. Lungs: Scattered rhonchi. Breathing is nonlabored. Abdomen: Soft, nontender, nondistended. Extremities: No lower extremity edema. SCDs. Psych: Alert, answers questions appropriately. Procedures None Urinary Catheter: No Vascular Central Line Catheter: No A/P Problem List: (1) Acute respiratory failure ICD Code: J96.00 - Acute respiratory failure, unspecified whether with hypoxia or hypercapnia (2) Seizure ICD Code: R56.9 - Unspecified convulsions (3) Ascending aortic aneurysm ICD Code: I71.2 - Thoracic aortic aneurysm, without rupture (4) Dyslipidemia ICD Code: E78.5 - Hyperlipidemia, unspecified (5) Coronary artery disease ICD Code: I25.10 - Atherosclerotic heart disease of [place] coronary artery without angina pectoris (6) Acute kidney injury ICD Code: N17.9 - Acute kidney failure, unspecified (7) CVA (cerebral vascular accident) ICD Code: I63.9 - Cerebral infarction, unspecified Assessment and Plan 1. Acute respiratory failure: Extubated 08/19/17. Continue supplemental oxygen, bronchodilators. 2. Pneumonia: Continue Mucinex for cough. Chest x-ray shows right lower lung airspace consolidation. Continue Levaquin. 3. NSTEMI: Appreciate cardiology recommendations. No interventions planned at this time. Continue medical management with aspirin, Plavix, statin, beta mitra. Patient has history of coronary artery disease and is status post CABG. 4. Heme positive stool: No other bleeding noted. Hemoglobin trending up. Monitor H&H. Heparin drip discontinued. 5. Seizure disorder, old CVA: Appreciate neurology recommendations. Continue Keppra. Seizure precautions. Lorazepam as needed for breakthrough seizures. 6. Right internal carotid artery stenosis, right vertebral artery stenosis, left subclavian stenosis: Continue current management. Neurology does not recommend intervention with interventional radiology secondary to likely chronicity of these occlusions. 7. Acute kidney injury: Creatinine slightly better today. Caution with IV fluids secondary to CHF. 8. GI prophylaxis: Protonix. 9. DVT prophylaxis: SCDs. 10. Chronic systolic congestive heart failure: Caution with IV fluids. Not clinically in fluid overload. Echocardiogram 08/18/17 shows moderate to severely reduced systolic function with ejection fraction 35-40%. 11. Dysphagia: Patient had tolerated thin liquids yesterday, but today is not tolerating thin or thickened liquids. Modified barium swallow per ST recommendations. Problem Qualifiers (1) Acute respiratory failure: Qualified Codes: J96.00 - Acute respiratory failure, unspecified whether with hypoxia or hypercapnia (2) Coronary artery disease: Qualified Codes: I25.10 - Atherosclerotic heart disease of [place] coronary artery without angina pectoris (3) CVA (cerebral vascular accident): Qualified Codes: I63.211 - Cerebral infarction due to unspecified occlusion or stenosis of right vertebral arteries Usman Hanson MD Aug 25, 2017 09:27
--- NOTE | 2017-08-25 10:56 | RADRPT ---
EXAM DATE/TIME: 08/25/2017 00:00 [facility] COMPARISON: No previous studies available for comparison. INDICATIONS : Dysphagia. FLUORO TIME: 0.9 minutes IMAGE COUNT: 0 CONTRAST: Dose as prescribed by speech pathologist. MEDICAL HISTORY : Seizures. Hypertension. SURGICAL HISTORY : CABG. AAA repair. ENCOUNTER: Subsequent ACUITY: 1 day PAIN SCORE: 0/10 LOCATION: Esophagus. FINDINGS: A modified barium swallow was performed with speech pathology. Patient was given a variety of liquids to swallow. There was no aspiration. For a full detailed report, see report by the speech pathologist. CONCLUSION: Modified barium swallow. Ruiz Reis MD on August 25, 2017 at 10:55 Board Certified Radiologist. This report was verified electronically.
[2017-08-26] VITALS (11 sets, daily range): BP systolic 89–128; BP diastolic 59–68; PULSE 78–99; RESP 17–22; TEMP 97.6–98.7; O2SAT 91–96
--- NOTE | 2017-08-26 01:54 | RADRPT ---
EXAM DATE/TIME: 08/26/2017 01:20 [facility] COMPARISON: CHEST SINGLE AP, August 23, 2017, 9:23. INDICATIONS : Hypoxia. r/o overload. MEDICAL HISTORY : Seizures. Hypertension SURGICAL HISTORY : Seizures. Hypertension ENCOUNTER: Subsequent ACUITY: 1 week PAIN SCORE: 0/10 LOCATION: Bilateral chest FINDINGS: Single portable frontal view of the chest shows a small right pleural effusion and right lower lobe i nfiltrate. Patchy areas of consolidation seen scattered throughout the left lung. Overall the appeara nce is stable. Heart is normal in size. Median sternotomy wires. CONCLUSION: Stable bilateral pulmonary infiltrates and small right effusion. Amauri Ocasio Jr., MD on August 26, 2017 at 1:51 Board Certified Radiologist. This report was verified electronically.
[2017-08-26] MEDS: levETIRAcetam INJ 500 MG in SODIUM CHLORIDE 0.9% INJ 100 ML IV SCH ×2 (05:03→17:41)
[2017-08-26 08:16] LABS: APTT (PATIENT) 31.4 SEC (24.3-30.1)
[2017-08-26 08:19] LABS: AUTOMATED NEUTROPHIL # 3.8 TH/MM3 (1.8-7.7); BASOPHIL % 0.7 % (0.0-2.0); EOSINOPHIL # 0.1 TH/MM3 (0-0.4); EOSINOPHIL % 1.2 % (0.0-4.0); HEMATOCRIT 39.3 % (39.0-51.0); HEMO FLAGS DIFF FINAL; LYMPH % 10.4 % (9.0-44.0); LYMPHOCYTE # 0.5 TH/MM3 (1.0-4.8); MEAN CELL VOLUME 84.6 FL (80.0-100.0); MEAN CORPUSCULAR HEMOGLOBIN 27.8 PG (27.0-34.0); MEAN CORPUSCULAR HGB CONC 32.9 % (32.0-36.0); MONO % 13.2 % (0.0-8.0); NEUT % 74.5 % (16.0-70.0); PLATELET COUNT 190 TH/MM3 (150-450); RED BLOOD COUNT 4.65 MIL/MM3 (4.50-5.90); RED CELL DISTRIBUTION WIDTH 15.4 % (11.6-17.2); WHITE BLOOD COUNT 5.1 TH/MM3 (4.0-11.0)
[2017-08-26 08:29] LABS: ANION GAP 8 MEQ/L (5-15); AST (GOT) 19 U/L (15-37); BICARBONATE 29.2 MEQ/L (21.0-32.0); BLOOD UREA NITROGEN 31 MG/DL (7-18); CHLORIDE 105 MEQ/L (98-107); GLOMERULAR FILTRATION RATE 48 ML/MIN (>89); MAGNESIUM 1.9 MG/DL (1.5-2.5); POTASSIUM 4.1 MEQ/L (3.5-5.1); SODIUM (NA) 142 MEQ/L (136-145)
[2017-08-26 08:30] LABS: ALT (GPT) 18 U/L (12-78)
[2017-08-26 08:32] LABS: ALKALINE PHOSPHATASE 72 U/L (45-117); TOTAL BILIRUBIN ADULT 0.8 MG/DL (0.2-1.0)
[2017-08-26] MEDS: ATORVASTATIN 20 MG TAB PO SCH (09:08)
[2017-08-26] MEDS: METOPROLOL TARTRATE 25 MG TAB PO SCH ×2 (09:08→21:00)
[2017-08-26] MEDS: CLOPIDOGREL 75 MG TAB PO SCH (09:08)
[2017-08-26] MEDS: ASPIRIN 81 MG CHEW TAB PO SCH (09:08)
[2017-08-26] MEDS: SODIUM CHLORIDE 0.9% FLUSH 10 ML FLUSH IV FLUSH SCH ×2 (09:09→21:00)
[2017-08-26] MEDS: LEVOFLOXACIN 750 MG PREMIX INJ 150 ML IV SCH (09:09)
[2017-08-26] MEDS: PANTOPRAZOLE SODIUM 40 MG VIAL IV PUSH SCH (09:09)
--- NOTE | 2017-08-26 12:30 | HHI.PR ---
Subjective Remarks Follow-up respiratory failure/pneumonia/seizure 08/26/17-patient seen and examined, some shortness of breath with decreased oxygen saturation requiring simple mask. Afebrile. 45 barium study 08/25/17 without any evidence of aspiration Objective Vitals Vital Signs Date Time Temp Pulse Resp B/P (MAP) Pulse Ox O2 Delivery O2 Flow Rate FiO2 08/26/17 09:57 93 SFM 6.00 08/26/17 08:00 98.7 92 20 105/66 (79) 94 08/26/17 06:04 88 08/26/17 04:45 97/61 (73) 08/26/17 04:00 98.3 91 20 120/68 (85) 96 08/26/17 02:09 90 Simple Mask 6.00 08/26/17 00:00 98.4 99 20 100/64 (76) 91 08/25/17 21:52 92 Nasal Cannula 6.00 08/25/17 21:09 90 Nasal Cannula 6.00 08/25/17 20:00 99.1 83 20 94/69 (77) 95 08/25/17 16:00 98.0 89 22 92/63 (73) 90 I/O 08/25/17 08/25/17 08/25/17 08/26/17 08/26/17 08/26/17 07:00 15:00 23:00 07:00 15:00 23:00 Intake Total 479 ml 150 ml Output Total 350 ml 350 ml Balance 479 ml -200 ml -350 ml Intake Oral 240 ml IV Total 239 ml 150 ml Output Urine Total 350 ml 350 ml # Voids 3 1 # Bowel Movements 1 1 Result Diagram: 08/26/17 0734 08/26/17 0734 Imaging Last Impressions Chest X-Ray 08/26/17 0000 Signed Impressions: Service Date/Time: Saturday, August 26, 2017 01:20 - CONCLUSION: Stable bilateral pulmonary infiltrates and small right effusion. Amauri Ocasio Jr., MD Modified Barium Swallow 08/25/17 0000 Signed Impressions: Service Date/Time: August 00:00 - CONCLUSION: Modified barium swallow. Ruiz Reis MD Brain MRI 08/19/17 0000 Signed Impressions: Service Date/Time: Saturday, August 19, 2017 13:02 - CONCLUSION: 1. Old left occipital lobe infarct 2. No evidence of acute intracranial pathology. Chronic ischemic changes as above. Leo Means MD Renal Ultrasound 08/18/17 0000 Signed Impressions: Service Date/Time: July 09:18 - CONCLUSION: Bilateral echogenic kidneys suggesting medical renal disease. Multiple simple cysts bilaterally. No evidence of hydronephrosis. Barry Chino MD Neck CTA 08/17/17 1519 Signed Impressions: Service Date/Time: Thursday, August 17, 2017 16:06 - CONCLUSION: 1. 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 2. 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 3. 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 4. The left vertebral artery is patent. Flow within the left vertebral is likely retrograde. 5. Plaquing but no hemodynamically significant stenosis seen at the left carotid bifurcation. 6. Reconstitution of the intracranial circulation on the right via the [place] of [place]. Chemo Pham MD Head CT 08/17/17 0000 Signed Impressions: Service Date/Time: Thursday, August 17, 2017 15:26 - CONCLUSION: 1. Old stroke, negative for an acute hemorrhage. 2. Findings were called to Dr. Healy at 15:40. Ancelmo Pham MD FACR Objective Remarks GENERAL: NAD with simple mask on SKIN: Warm and dry. HEAD: Normocephalic. EYES: No scleral icterus. No injection or drainage. NECK: Supple, trachea midline. No JVD or lymphadenopathy. CARDIOVASCULAR: Regular rate and rhythm without murmurs, gallops, or rubs. RESPIRATORY: Breath sounds decreased bilaterally. No accessory muscle use. GASTROINTESTINAL: Abdomen soft, non-tender, nondistended. MUSCULOSKELETAL: No cyanosis, or edema. BACK: Nontender without obvious deformity. No CVA tenderness. Procedures None A/P Problem List: (1) Acute respiratory failure ICD Code: J96.00 - Acute respiratory failure, unspecified whether with hypoxia or hypercapnia (2) Seizure ICD Code: R56.9 - Unspecified convulsions (3) Ascending aortic aneurysm ICD Code: I71.2 - Thoracic aortic aneurysm, without rupture (4) Dyslipidemia ICD Code: E78.5 - Hyperlipidemia, unspecified (5) Coronary artery disease ICD Code: I25.10 - Atherosclerotic heart disease of [place] coronary artery without angina pectoris (6) Acute kidney injury ICD Code: N17.9 - Acute kidney failure, unspecified (7) CVA (cerebral vascular accident) ICD Code: I63.9 - Cerebral infarction, unspecified Assessment and Plan 76-year-old man with 1. Acute respiratory failure: Extubated 08/19/17. Continue supplemental oxygen, bronchodilators. 2. Pneumonia: Currently on Levaquin. Maintain oxygen saturation above 92% 3. NSTEMI: Appreciate cardiology recommendations. No interventions planned at this time. Continue medical management with aspirin, Plavix, statin, beta mitra. 4. Heme positive stool: Resolved, H&H stable 5. Seizure disorder, old CVA: Currently on Keppra for neurology. Seizure precautions. Lorazepam as needed for breakthrough seizures. 6. Right internal carotid artery stenosis, right vertebral artery stenosis, left subclavian stenosis: Continue current conservative medical management as this appears to be chronic per neurology. 7. Acute kidney injury: Monitor BUN/creatinine, cautions with IV fluid hydration 8. GI prophylaxis: Protonix. 9. DVT prophylaxis: SCDs. 10. Chronic systolic congestive heart failure: Echocardiogram 08/18/17 shows moderate to severely reduced systolic function with ejection fraction 35-40%. 11. Dysphagia: Modified barium study 08/25/17 without any evidence of aspiration. Overnight patient currently nothing by mouth this a.m. Problem Qualifiers (1) Acute respiratory failure: Qualified Codes: J96.00 - Acute respiratory failure, unspecified whether with hypoxia or hypercapnia (2) Coronary artery disease: Qualified Codes: I25.10 - Atherosclerotic heart disease of [place] coronary artery without angina pectoris (3) CVA (cerebral vascular accident): Qualified Codes: I63.211 - Cerebral infarction due to unspecified occlusion or stenosis of right vertebral arteries Shai Perez MD Aug 26, 2017 12:30
[2017-08-26] MEDS: ACETAMINOPHEN 325 MG TAB PO PRN (13:16)
[2017-08-27] VITALS (10 sets, daily range): BP systolic 98–110; BP diastolic 58–78; PULSE 80–89; RESP 17–22; TEMP 97.9–98.5; O2SAT 94–96
[2017-08-27] MEDS: levETIRAcetam INJ 500 MG in SODIUM CHLORIDE 0.9% INJ 100 ML IV SCH ×2 (05:24→18:00)
[2017-08-27 06:47] LABS: APTT (PATIENT) 30.1 SEC (24.3-30.1)
[2017-08-27] MEDS: SODIUM CHLORIDE 0.9% FLUSH 10 ML FLUSH IV FLUSH SCH ×2 (09:00→21:14)
[2017-08-27] MEDS: METOPROLOL TARTRATE 25 MG TAB PO SCH ×2 (09:00→21:00)
[2017-08-27] MEDS: LEVOFLOXACIN 750 MG PREMIX INJ 150 ML IV SCH (10:07)
[2017-08-27] MEDS: CLOPIDOGREL 75 MG TAB PO SCH (10:08)
[2017-08-27] MEDS: PANTOPRAZOLE SODIUM 40 MG VIAL IV PUSH SCH (10:08)
[2017-08-27] MEDS: ASPIRIN 81 MG CHEW TAB PO SCH (10:09)
[2017-08-27] MEDS: SODIUM CHLORIDE 0.9% FLUSH 10 ML FLUSH IV FLUSH PRN (10:09)
[2017-08-27] MEDS: ATORVASTATIN 20 MG TAB PO SCH (10:09)
--- NOTE | 2017-08-27 14:06 | HHI.PR ---
Subjective Remarks Follow-up respiratory failure/pneumonia/seizure 08/26/17-patient seen and examined, some shortness of breath with decreased oxygen saturation requiring simple mask. Afebrile. 45 barium study 08/25/17 without any evidence of aspiration 08/27/17-patient seen and examined, currently on 7 L simple mask. Speaking today with much stronger voice Objective Vitals Vital Signs Date Time Temp Pulse Resp B/P (MAP) Pulse Ox O2 Delivery O2 Flow Rate FiO2 08/27/17 12:00 98.0 86 18 98/58 (71) 95 08/27/17 09:41 95 Simple Mask 7.00 08/27/17 08:00 97.9 89 19 108/62 (77) 96 08/27/17 04:00 98.4 89 22 110/67 (81) 95 08/27/17 00:00 98.4 88 22 107/71 (83) 95 08/26/17 21:30 85 08/26/17 20:00 97.6 87 22 89/59 (69) 95 08/26/17 19:54 Nasal Cannula 6.00 08/26/17 16:00 98.2 78 17 128/60 (82) 94 I/O 08/26/17 08/26/17 08/26/17 08/27/17 08/27/17 08/27/17 06:59 14:59 22:59 06:59 14:59 22:59 Intake Total 250 ml Output Total 100 ml Balance 150 ml IV Total 250 ml Output Urine Total 100 ml # Voids 1 2 # Bowel Movements 0 Result Diagram: 08/26/17 0734 08/26/17 0734 Objective Remarks GENERAL: NAD with simple mask on SKIN: Warm and dry. HEAD: Normocephalic. EYES: No scleral icterus. No injection or drainage. NECK: Supple, trachea midline. No JVD or lymphadenopathy. CARDIOVASCULAR: Regular rate and rhythm without murmurs, gallops, or rubs. RESPIRATORY: Breath sounds decreased bilaterally. No accessory muscle use. GASTROINTESTINAL: Abdomen soft, non-tender, nondistended. MUSCULOSKELETAL: No cyanosis, or edema. BACK: Nontender without obvious deformity. No CVA tenderness. Procedures None A/P Problem List: (1) Acute respiratory failure ICD Code: J96.00 - Acute respiratory failure, unspecified whether with hypoxia or hypercapnia (2) Seizure ICD Code: R56.9 - Unspecified convulsions (3) Ascending aortic aneurysm ICD Code: I71.2 - Thoracic aortic aneurysm, without rupture (4) Dyslipidemia ICD Code: E78.5 - Hyperlipidemia, unspecified (5) Coronary artery disease ICD Code: I25.10 - Atherosclerotic heart disease of [place] coronary artery without angina pectoris (6) Acute kidney injury ICD Code: N17.9 - Acute kidney failure, unspecified (7) CVA (cerebral vascular accident) ICD Code: I63.9 - Cerebral infarction, unspecified Assessment and Plan 76-year-old man with 1. Acute respiratory failure: Extubated 08/19/17. Continue supplemental oxygen, bronchodilators. A [place], aggressive pulmonary toilet 2. Pneumonia: Currently on Levaquin. Maintain oxygen saturation above 92% 3. NSTEMI: Appreciate cardiology recommendations. No interventions planned at this time. Continue medical management with aspirin, Plavix, statin, beta mitra. 4. Heme positive stool: Resolved, H&H stable 5. Seizure disorder, old CVA: Currently on Keppra per neurology. Seizure precautions. Lorazepam as needed for breakthrough seizures. 6. Right internal carotid artery stenosis, right vertebral artery stenosis, left subclavian stenosis: Continue current conservative medical management as this appears to be chronic per neurology. 7. Acute kidney injury: Monitor BUN/creatinine, cautions with IV fluid hydration 8. GI prophylaxis: Protonix. 9. DVT prophylaxis: SCDs. 10. Chronic systolic congestive heart failure: Echocardiogram 08/18/17 shows moderate to severely reduced systolic function with ejection fraction 35-40%. 11. Dysphagia: Modified barium study 08/25/17 without any evidence of aspiration. Continue with current diet and advance as tolerated Problem Qualifiers (1) Acute respiratory failure: Qualified Codes: J96.00 - Acute respiratory failure, unspecified whether with hypoxia or hypercapnia (2) Coronary artery disease: Qualified Codes: I25.10 - Atherosclerotic heart disease of [place] coronary artery without angina pectoris (3) CVA (cerebral vascular accident): Qualified Codes: I63.211 - Cerebral infarction due to unspecified occlusion or stenosis of right vertebral arteries Shai Peerz MD Aug 27, 2017 14:06
[2017-08-27] MEDS: RESP: ALBUTEROL 2.5 MG/IPRATROPIUM 0.5 MG NEB (SCH) NEB (20:00)
[2017-08-28] VITALS (9 sets, daily range): BP systolic 96–155; BP diastolic 59–72; PULSE 74–93; RESP 16–22; TEMP 97.1–99.2; O2SAT 92–96
[2017-08-28] MEDS: levETIRAcetam INJ 500 MG in SODIUM CHLORIDE 0.9% INJ 100 ML IV SCH ×2 (06:04→17:31)
[2017-08-28] MEDS: RESP: ALBUTEROL 2.5 MG/IPRATROPIUM 0.5 MG NEB (SCH) NEB ×3 (08:27→21:54)
[2017-08-28 08:46] LABS: APTT (PATIENT) 30.5 SEC (24.3-30.1)
[2017-08-28] MEDS: METOPROLOL TARTRATE 25 MG TAB PO SCH ×2 (09:00→21:45)
[2017-08-28] MEDS: SODIUM CHLORIDE 0.9% FLUSH 10 ML FLUSH IV FLUSH SCH ×2 (09:00→21:45)
--- NOTE | 2017-08-28 09:01 | PD.CARD.PN ---
Subjective Subjective Remarks no CP Objective Medications Current Medications Medications (Trade) Dose Ordered Sig/Paul Route Start Time Stop Time Status Last Admin (Tylenol) 650 mg Q6H PRN PO 08/17/17 17:15 08/26/17 13:16 (NS Flush) 2 ml UNSCH PRN IV FLUSH 08/17/17 17:30 08/27/17 10:09 (NS Flush) 2 ml BID IV FLUSH 08/17/17 21:00 08/27/17 21:14 (Protonix Inj) 40 mg DAILY IV PUSH 08/18/17 09:00 08/27/17 10:08 (Zofran Inj) 4 mg Q6H PRN IV PUSH 08/17/17 17:30 (Milk Of Magnesia Liq) 30 ml Q12H PRN PO 08/17/17 17:30 (Senokot) 17.2 mg Q12H PRN PO 08/17/17 17:30 (Dulcolax Supp) 10 mg DAILY PRN RECTAL 08/17/17 17:30 (Lactulose Liq) 30 ml DAILY PRN PO 08/17/17 17:30 (D50w (Vial) Inj) 50 ml UNSCH PRN IV PUSH 08/17/17 17:30 (Glucagon Inj) 1 mg UNSCH PRN OTHER 08/17/17 17:30 Levetriacetam 500 mg/Sodium Chloride 105 ml @ 420 mls/hr Q12H IV 08/18/17 06:00 08/28/17 06:04 (Ativan Inj) 2 mg Q10M PRN IV PUSH 08/17/17 17:30 (Trandate Inj) 10 mg Q2H PRN IV PUSH 08/17/17 17:30 (Aspirin Chew) 81 mg DAILY PO 08/18/17 09:00 08/27/17 10:09 (Lipitor) 20 mg DAILY PO 08/18/17 09:00 08/27/17 10:09 (Pill Splitter) 1 ea UNSCH PRN OTHER 08/18/17 09:00 (Duoneb Neb) 1 ampule Q2HR NEB PRN NEB 08/19/17 18:00 08/25/17 21:50 (Lopressor) 25 mg Q12HR PO 08/21/17 21:00 08/26/17 09:08 (Plavix) 75 mg DAILY PO 08/22/17 14:00 08/27/17 10:08 Levofloxacin/ Dextrose 150 ml @ 100 mls/hr Q24H IV 08/24/17 09:00 08/27/17 10:07 (Robitussin Liq) 200 mg Q4H PRN PO 08/24/17 08:45 08/24/17 21:02 (Duoneb Neb) 1 ampule Q6HR WHILE AWAKE NEB NEB 08/27/17 20:00 08/28/17 08:27 Vital Signs / I&O Vital Signs Date Time Temp Pulse Resp B/P (MAP) Pulse Ox O2 Delivery O2 Flow Rate FiO2 08/28/17 08:28 94 Simple Mask 6.00 08/28/17 08:00 97.9 86 16 96/59 (71) 92 08/28/17 05:00 97.9 74 20 110/66 (81) 95 08/28/17 04:00 97 Simple Mask 7.00 08/28/17 00:20 97.7 80 22 105/64 (78) 95 08/28/17 00:06 94 Simple Mask 7.00 08/27/17 21:15 86 100/78 (85) 08/27/17 20:46 87 08/27/17 20:30 98.5 86 19 100/60 (73) 94 08/27/17 16:00 98.1 80 17 104/59 (74) 94 08/27/17 12:00 98.0 86 18 98/58 (71) 95 08/27/17 09:41 95 Simple Mask 7.00 I/O 08/27/17 08/27/17 08/27/17 08/28/17 08/28/17 08/28/17 07:00 15:00 23:00 07:00 15:00 23:00 Intake Total 480 ml 400 ml 0 ml Output Total 0 ml 925 ml Balance 480 ml 400 ml -925 ml Intake Oral 480 ml 400 ml 0 ml Output Urine Total 0 ml 925 ml # Voids 2 2 # Bowel Movements 0 0 0 0 Physical Exam GENERAL: Well-nourished, well-developed patient. SKIN: Warm and dry. HEAD: Normocephalic. EYES: No scleral icterus. No injection or drainage. NECK: Supple, trachea midline. No JVD or lymphadenopathy. CARDIOVASCULAR: Regular rate and rhythm without murmurs, gallops, or rubs. RESPIRATORY: Breath sounds equal bilaterally. No accessory muscle use. GASTROINTESTINAL: Abdomen soft, non-tender, nondistended. EXTREMITIES: No cyanosis, or edema. NEUROLOGICAL: Awake, alert, and oriented x 3. Non-focal. Laboratory Laboratory Tests Test 08/28/17 07:55 Activated Partial Thromboplast Time 30.5 SEC Imaging Last Impressions Chest X-Ray 08/26/17 0000 Signed Impressions: Service Date/Time: Saturday, August 26, 2017 01:20 - CONCLUSION: Stable bilateral pulmonary infiltrates and small right effusion. Amauri Ocasio Jr., MD Modified Barium Swallow 08/25/17 0000 Signed Impressions: Service Date/Time: August 00:00 - CONCLUSION: Modified barium swallow. Ruiz Reis MD Brain MRI 08/19/17 0000 Signed Impressions: Service Date/Time: Saturday, August 19, 2017 13:02 - CONCLUSION: 1. Old left occipital lobe infarct 2. No evidence of acute intracranial pathology. Chronic ischemic changes as above. Leo Means MD Renal Ultrasound 08/18/17 0000 Signed Impressions: Service Date/Time: July 09:18 - CONCLUSION: Bilateral echogenic kidneys suggesting medical renal disease. Multiple simple cysts bilaterally. No evidence of hydronephrosis. Barry Chino MD Neck CTA 08/17/17 1519 Signed Impressions: Service Date/Time: Thursday, August 17, 2017 16:06 - CONCLUSION: 1. 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 2. 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 3. 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 4. The left vertebral artery is patent. Flow within the left vertebral is likely retrograde. 5. Plaquing but no hemodynamically significant stenosis seen at the left carotid bifurcation. 6. Reconstitution of the intracranial circulation on the right via the [place] of [place]. Chemo Pham MD Head CT 08/17/17 0000 Signed Impressions: Service Date/Time: Thursday, August 17, 2017 15:26 - CONCLUSION: 1. Old stroke, negative for an acute hemorrhage. 2. Findings were called to Dr. Healy at 15:40. Ancelmo Pham MD FACR Assessment and Plan Problem List: (1) Non-STEMI (non-ST elevated myocardial infarction) ICD Codes: I21.4 - Non-ST elevation (NSTEMI) myocardial infarction Plan: Prognosis poor. Patient has decline LHC, medications for CAD and any invasive therapies in the past. He declines LHC wants to cont medical therapy. Cont ASA, Plavix, Statin, BB, hold ACEi given LIGIA Palliative Care Consult (2) Cerebrovascular disease ICD Codes: I67.9 - Cerebrovascular disease, unspecified (3) CAD (coronary artery disease) ICD Codes: I25.10 - Atherosclerotic heart disease of [place] coronary artery without angina pectoris (4) Peripheral arterial disease ICD Codes: I73.9 - Peripheral vascular disease, unspecified (5) CVA (cerebral vascular accident) ICD Codes: I63.9 - Cerebral infarction, unspecified (6) Aortic valve replaced ICD Codes: Z95.2 - Presence of prosthetic heart valve (7) Refusal of treatment by patient ICD Codes: Z53.20 - Procedure and treatment not carried out because of patient' s decision for unspecified reasons Problem Qualifiers (1) CVA (cerebral vascular accident): Qualified Codes: I63.211 - Cerebral infarction due to unspecified occlusion or stenosis of right vertebral arteries Evangelist Jauregui MD Aug 28, 2017 09:01
[2017-08-28 09:05] LABS: BICARBONATE 30.9 MEQ/L (21.0-32.0)
[2017-08-28] MEDS: PANTOPRAZOLE SODIUM 40 MG VIAL IV PUSH SCH (09:50)
[2017-08-28] MEDS: LEVOFLOXACIN 750 MG PREMIX INJ 150 ML IV SCH (09:50)
[2017-08-28] MEDS: ASPIRIN 81 MG CHEW TAB PO SCH (09:51)
[2017-08-28] MEDS: CLOPIDOGREL 75 MG TAB PO SCH (09:51)
[2017-08-28] MEDS: ATORVASTATIN 20 MG TAB PO SCH (09:51)
[2017-08-28] MEDS: SODIUM CHLORIDE 0.9% FLUSH 10 ML FLUSH IV FLUSH PRN (09:53)
--- NOTE | 2017-08-28 12:47 | HHI.PR ---
Subjective Remarks Follow-up respiratory failure/pneumonia/seizure 08/26/17-patient seen and examined, some shortness of breath with decreased oxygen saturation requiring simple mask. Afebrile. 45 barium study 08/25/17 without any evidence of aspiration 08/27/17-patient seen and examined, currently on 7 L simple mask. Speaking today with much stronger voice 08/28/17-patient seen and examined; he does not want any heart catheterization performed. He is still short of breath and requiring simple mask. by the bedside Objective Vitals Vital Signs Date Time Temp Pulse Resp B/P (MAP) Pulse Ox O2 Delivery O2 Flow Rate FiO2 08/28/17 08:28 94 Simple Mask 6.00 08/28/17 08:00 97.9 86 16 96/59 (71) 92 08/28/17 05:00 97.9 74 20 110/66 (81) 95 08/28/17 04:00 97 Simple Mask 7.00 08/28/17 00:20 97.7 80 22 105/64 (78) 95 08/28/17 00:06 94 Simple Mask 7.00 08/27/17 21:15 86 100/78 (85) 08/27/17 20:46 87 08/27/17 20:30 98.5 86 19 100/60 (73) 94 08/27/17 16:00 98.1 80 17 104/59 (74) 94 I/O 08/27/17 08/27/17 08/27/17 08/28/17 08/28/17 08/28/17 06:59 14:59 22:59 06:59 14:59 22:59 Intake Total 480 ml 400 ml 0 ml Output Total 0 ml 925 ml Balance 480 ml 400 ml -925 ml Intake Oral 480 ml 400 ml 0 ml Output Urine Total 0 ml 925 ml # Voids 2 2 # Bowel Movements 0 0 0 0 Result Diagram: 08/26/17 0734 08/28/17 0755 Objective Remarks GENERAL: NAD with simple mask on SKIN: Warm and dry. HEAD: Normocephalic. EYES: No scleral icterus. No injection or drainage. NECK: Supple, trachea midline. No JVD or lymphadenopathy. CARDIOVASCULAR: Regular rate and rhythm without murmurs, gallops, or rubs. RESPIRATORY: Breath sounds decreased bilaterally. No accessory muscle use. GASTROINTESTINAL: Abdomen soft, non-tender, nondistended. MUSCULOSKELETAL: No cyanosis, or edema. BACK: Nontender without obvious deformity. No CVA tenderness. Procedures None A/P Problem List: (1) Acute respiratory failure ICD Code: J96.00 - Acute respiratory failure, unspecified whether with hypoxia or hypercapnia (2) Seizure ICD Code: R56.9 - Unspecified convulsions (3) Ascending aortic aneurysm ICD Code: I71.2 - Thoracic aortic aneurysm, without rupture (4) Dyslipidemia ICD Code: E78.5 - Hyperlipidemia, unspecified (5) Coronary artery disease ICD Code: I25.10 - Atherosclerotic heart disease of [place] coronary artery without angina pectoris (6) Acute kidney injury ICD Code: N17.9 - Acute kidney failure, unspecified (7) CVA (cerebral vascular accident) ICD Code: I63.9 - Cerebral infarction, unspecified Assessment and Plan 76-year-old man with 1. Acute respiratory failure: Extubated 08/19/17. Continue supplemental oxygen, bronchodilators. A cappella, aggressive pulmonary toilet 2. Pneumonia: Currently on Levaquin. Maintain oxygen saturation above 92% 3. NSTEMI: Appreciate cardiology recommendations. No interventions planned at this time as patient does not want any heart catheterization performed. Continue medical management with aspirin, Plavix, statin, beta mitra. 4. Heme positive stool: Resolved, H&H stable 5. Seizure disorder, old CVA: Currently on Keppra per neurology. Seizure precautions. Lorazepam as needed for breakthrough seizures. 6. Right internal carotid artery stenosis, right vertebral artery stenosis, left subclavian stenosis: Continue current conservative medical management as this appears to be chronic per neurology. 7. Acute kidney injury: Monitor BUN/creatinine, cautions with IV fluid hydration 8. GI prophylaxis: Protonix. 9. DVT prophylaxis: SCDs. 10. Chronic systolic congestive heart failure: Echocardiogram 08/18/17 shows moderate to severely reduced systolic function with ejection fraction 35-40%. 11. Dysphagia: Modified barium study 08/25/17 without any evidence of aspiration. Continue with current pure diet and advance as tolerated Problem Qualifiers (1) Acute respiratory failure: Qualified Codes: J96.00 - Acute respiratory failure, unspecified whether with hypoxia or hypercapnia (2) Coronary artery disease: Qualified Codes: I25.10 - Atherosclerotic heart disease of [place] coronary artery without angina pectoris (3) CVA (cerebral vascular accident): Qualified Codes: I63.211 - Cerebral infarction due to unspecified occlusion or stenosis of right vertebral arteries Shai Perez MD Aug 28, 2017 12:47
[2017-08-29] VITALS (10 sets, daily range): BP systolic 90–148; BP diastolic 54–73; PULSE 80–96; RESP 18–20; TEMP 94.6–98.8; O2SAT 91–97
[2017-08-29] MEDS: levETIRAcetam INJ 500 MG in SODIUM CHLORIDE 0.9% INJ 100 ML IV SCH ×2 (05:56→17:57)
[2017-08-29 08:00] LABS: APTT (PATIENT) 30.6 SEC (24.3-30.1)
[2017-08-29] MEDS: RESP: ALBUTEROL 2.5 MG/IPRATROPIUM 0.5 MG NEB (SCH) NEB ×3 (09:03→21:15)
[2017-08-29] MEDS: CLOPIDOGREL 75 MG TAB PO SCH (09:46)
[2017-08-29] MEDS: ASPIRIN 81 MG CHEW TAB PO SCH (09:46)
[2017-08-29] MEDS: ATORVASTATIN 20 MG TAB PO SCH (09:46)
[2017-08-29] MEDS: LEVOFLOXACIN 750 MG PREMIX INJ 150 ML IV SCH (09:46)
[2017-08-29] MEDS: PANTOPRAZOLE SODIUM 40 MG VIAL IV PUSH SCH (09:46)
[2017-08-29] MEDS: METOPROLOL TARTRATE 25 MG TAB PO SCH ×2 (09:46→20:20)
[2017-08-29] MEDS: SODIUM CHLORIDE 0.9% FLUSH 10 ML FLUSH IV FLUSH SCH ×2 (09:47→20:20)
--- NOTE | 2017-08-29 12:47 | HHI.PR ---
Subjective Remarks Follow-up respiratory failure/pneumonia/seizure 08/26/17-patient seen and examined, some shortness of breath with decreased oxygen saturation requiring simple mask. Afebrile. 45 barium study 08/25/17 without any evidence of aspiration 08/27/17-patient seen and examined, currently on 7 L simple mask. Speaking today with much stronger voice 08/28/17-patient seen and examined; he does not want any heart catheterization performed. He is still short of breath and requiring simple mask. by the bedside 08/29/17-patient seen and examined, currently on 5 L nasal cannula and reports improvement of shortness of breath. Denies any chest pain. Objective Vitals Vital Signs Date Time Temp Pulse Resp B/P (MAP) Pulse Ox O2 Delivery O2 Flow Rate FiO2 08/29/17 12:34 97.2 96 20 148/73 (98) 94 08/29/17 09:06 94 Nasal Cannula 2.00 08/29/17 09:05 97.5 84 20 136/67 (90) 91 08/29/17 04:45 94 08/29/17 04:00 98.8 92 18 144/56 (85) 92 08/29/17 01:26 94 Simple Mask 6.00 08/29/17 00:00 97.4 84 18 146/68 (94) 94 08/28/17 21:55 92 Simple Mask 6.00 08/28/17 20:00 98.2 93 18 155/72 (99) 96 08/28/17 16:00 99.2 84 19 148/71 (96) 95 I/O 08/28/17 08/28/17 08/28/17 08/29/17 08/29/17 08/29/17 07:00 15:00 23:00 07:00 15:00 23:00 Intake Total 0 ml 730 ml 105 ml 220 ml Output Total 925 ml Balance -925 ml 730 ml 105 ml 220 ml Intake Oral 0 ml 580 ml 120 ml IV Total 150 ml 105 ml 100 ml Output Urine Total 925 ml # Voids 5 1 # Bowel Movements 0 0 Result Diagram: 08/26/17 0734 08/28/17 0755 Imaging Last Impressions Chest X-Ray 08/26/17 0000 Signed Impressions: Service Date/Time: Saturday, August 26, 2017 01:20 - CONCLUSION: Stable bilateral pulmonary infiltrates and small right effusion. Amauri Ocasio Jr., MD Modified Barium Swallow 08/25/17 0000 Signed Impressions: Service Date/Time: August 00:00 - CONCLUSION: Modified barium swallow. Ruiz Reis MD Brain MRI 08/19/17 0000 Signed Impressions: Service Date/Time: Saturday, August 19, 2017 13:02 - CONCLUSION: 1. Old left occipital lobe infarct 2. No evidence of acute intracranial pathology. Chronic ischemic changes as above. Leo Means MD Renal Ultrasound 08/18/17 0000 Signed Impressions: Service Date/Time: July 09:18 - CONCLUSION: Bilateral echogenic kidneys suggesting medical renal disease. Multiple simple cysts bilaterally. No evidence of hydronephrosis. Barry Chino MD Neck CTA 08/17/17 1519 Signed Impressions: Service Date/Time: Thursday, August 17, 2017 16:06 - CONCLUSION: 1. 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 2. 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 3. 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 4. The left vertebral artery is patent. Flow within the left vertebral is likely retrograde. 5. Plaquing but no hemodynamically significant stenosis seen at the left carotid bifurcation. 6. Reconstitution of the intracranial circulation on the right via the [place] of [place]. Chemo Pham MD Head CT 08/17/17 0000 Signed Impressions: Service Date/Time: Thursday, August 17, 2017 15:26 - CONCLUSION: 1. Old stroke, negative for an acute hemorrhage. 2. Findings were called to Dr. Healy at 15:40. Ancelmo Pham MD FACR Objective Remarks GENERAL: NAD with simple mask on SKIN: Warm and dry. HEAD: Normocephalic. EYES: No scleral icterus. No injection or drainage. NECK: Supple, trachea midline. No JVD or lymphadenopathy. CARDIOVASCULAR: Regular rate and rhythm without murmurs, gallops, or rubs. RESPIRATORY: Breath sounds decreased bilaterally. No accessory muscle use. GASTROINTESTINAL: Abdomen soft, non-tender, nondistended. MUSCULOSKELETAL: No cyanosis, or edema. BACK: Nontender without obvious deformity. No CVA tenderness. Procedures None A/P Problem List: (1) Acute respiratory failure ICD Code: J96.00 - Acute respiratory failure, unspecified whether with hypoxia or hypercapnia (2) Seizure ICD Code: R56.9 - Unspecified convulsions (3) Ascending aortic aneurysm ICD Code: I71.2 - Thoracic aortic aneurysm, without rupture (4) Dyslipidemia ICD Code: E78.5 - Hyperlipidemia, unspecified (5) Coronary artery disease ICD Code: I25.10 - Atherosclerotic heart disease of [place] coronary artery without angina pectoris (6) Acute kidney injury ICD Code: N17.9 - Acute kidney failure, unspecified (7) CVA (cerebral vascular accident) ICD Code: I63.9 - Cerebral infarction, unspecified Assessment and Plan 76-year-old man with 1. Acute respiratory failure:Extubated 08/19/17. Improving however patient stated on 5-6 L nasal cannula. Continue supplemental oxygen, bronchodilators. A cappella, aggressive pulmonary toilet 2. Pneumonia: Currently on Levaquin. Maintain oxygen saturation above 92% 3. NSTEMI: Appreciate cardiology recommendations. No interventions planned at this time as patient does not want any heart catheterization performed. Continue medical management with aspirin, Plavix, statin, beta mitra. 4. Heme positive stool: Resolved, H&H stable 5. Seizure disorder, old CVA: Currently on Keppra per neurology. Seizure precautions. Lorazepam as needed for breakthrough seizures. 6. Right internal carotid artery stenosis, right vertebral artery stenosis, left subclavian stenosis: Continue current conservative medical management as this appears to be chronic per neurology. 7. Acute kidney injury: Monitor BUN/creatinine, cautions with IV fluid hydration 8. GI prophylaxis: Protonix. 9. DVT prophylaxis: SCDs. 10. Chronic systolic congestive heart failure: Echocardiogram 08/18/17 shows moderate to severely reduced systolic function with ejection fraction 35-40%. 11. Dysphagia: Modified barium study 08/25/17 without any evidence of aspiration. Continue with current pure diet and advance as tolerated Problem Qualifiers (1) Acute respiratory failure: Qualified Codes: J96.00 - Acute respiratory failure, unspecified whether with hypoxia or hypercapnia (2) Coronary artery disease: Qualified Codes: I25.10 - Atherosclerotic heart disease of [place] coronary artery without angina pectoris (3) CVA (cerebral vascular accident): Qualified Codes: I63.211 - Cerebral infarction due to unspecified occlusion or stenosis of right vertebral arteries Shai Perez MD Aug 29, 2017 12:47
[2017-08-30] VITALS (11 sets, daily range): BP systolic 116–141; BP diastolic 56–77; PULSE 79–99; RESP 18–24; TEMP 75.2–98.9; O2SAT 92–96
[2017-08-30] MEDS: levETIRAcetam INJ 500 MG in SODIUM CHLORIDE 0.9% INJ 100 ML IV SCH ×2 (05:44→18:00)
[2017-08-30] MEDS: RESP: ALBUTEROL 2.5 MG/IPRATROPIUM 0.5 MG NEB (SCH) NEB ×3 (07:34→19:12)
[2017-08-30] MEDS: LEVOFLOXACIN 750 MG PREMIX INJ 150 ML IV SCH (08:17)
[2017-08-30] MEDS: ASPIRIN 81 MG CHEW TAB PO SCH (08:18)
[2017-08-30] MEDS: PANTOPRAZOLE SODIUM 40 MG VIAL IV PUSH SCH (08:18)
[2017-08-30] MEDS: ATORVASTATIN 20 MG TAB PO SCH (08:19)
[2017-08-30] MEDS: CLOPIDOGREL 75 MG TAB PO SCH (08:19)
[2017-08-30] MEDS: METOPROLOL TARTRATE 25 MG TAB PO SCH ×2 (08:19→21:11)
[2017-08-30] MEDS: SODIUM CHLORIDE 0.9% FLUSH 10 ML FLUSH IV FLUSH SCH ×2 (08:19→21:11)
[2017-08-30 09:52] LABS: APTT (PATIENT) 30.1 SEC (24.3-30.1)
--- NOTE | 2017-08-30 12:33 | HHI.PR ---
Subjective Remarks Follow-up respiratory failure/pneumonia/seizure 08/26/17-patient seen and examined, some shortness of breath with decreased oxygen saturation requiring simple mask. Afebrile. 45 barium study 08/25/17 without any evidence of aspiration 08/27/17-patient seen and examined, currently on 7 L simple mask. Speaking today with much stronger voice 08/28/17-patient seen and examined; he does not want any heart catheterization performed. He is still short of breath and requiring simple mask. by the bedside 08/29/17-patient seen and examined, currently on 5 L nasal cannula and reports improvement of shortness of breath. Denies any chest pain. 08/30/17-patient seen and examined, no significant shortness of breath. Currently on 5-6 L nasal cannula with a simple mask on. Objective Vitals Vital Signs Date Time Temp Pulse Resp B/P (MAP) Pulse Ox O2 Delivery O2 Flow Rate FiO2 08/30/17 08:25 97.9 82 18 124/64 (84) 96 08/30/17 07:35 95 Simple Mask 5.00 08/30/17 05:41 75.2 99 24 141/77 (98) 96 08/30/17 03:09 83 08/30/17 02:09 97.2 93 20 127/65 (85) 94 08/29/17 21:16 92 Simple Mask 6.00 08/29/17 20:44 94.6 88 20 90/54 (66) 95 08/29/17 20:16 92 Simple Mask 6.00 08/29/17 16:33 97.2 80 20 123/60 (81) 97 08/29/17 12:34 97.2 96 20 148/73 (98) 94 I/O 08/29/17 08/29/17 08/29/17 08/30/17 08/30/17 08/30/17 07:00 15:00 23:00 07:00 15:00 23:00 Intake Total 220 ml 150 ml 480 ml Balance 220 ml 150 ml 480 ml Intake Oral 120 ml 480 ml IV Total 100 ml 150 ml # Voids 1 Result Diagram: 08/26/17 0734 08/28/17 0755 Objective Remarks GENERAL: NAD with simple mask on SKIN: Warm and dry. HEAD: Normocephalic. EYES: No scleral icterus. No injection or drainage. NECK: Supple, trachea midline. No JVD or lymphadenopathy. CARDIOVASCULAR: Regular rate and rhythm without murmurs, gallops, or rubs. RESPIRATORY: Breath sounds decreased bilaterally. No accessory muscle use. GASTROINTESTINAL: Abdomen soft, non-tender, nondistended. MUSCULOSKELETAL: No cyanosis, or edema. BACK: Nontender without obvious deformity. No CVA tenderness. Procedures None A/P Problem List: (1) Acute respiratory failure ICD Code: J96.00 - Acute respiratory failure, unspecified whether with hypoxia or hypercapnia (2) Seizure ICD Code: R56.9 - Unspecified convulsions (3) Ascending aortic aneurysm ICD Code: I71.2 - Thoracic aortic aneurysm, without rupture (4) Dyslipidemia ICD Code: E78.5 - Hyperlipidemia, unspecified (5) Coronary artery disease ICD Code: I25.10 - Atherosclerotic heart disease of [place] coronary artery without angina pectoris (6) Acute kidney injury ICD Code: N17.9 - Acute kidney failure, unspecified (7) CVA (cerebral vascular accident) ICD Code: I63.9 - Cerebral infarction, unspecified Assessment and Plan 76-year-old man with 1. Acute respiratory failure:Extubated 08/19/17. Continue with 5-6 L nasal cannula. Continue supplemental oxygen, bronchodilators. A cappella, aggressive pulmonary toilet 2. Pneumonia: Currently on Levaquin. Maintain oxygen saturation above 92% 3. NSTEMI: Appreciate cardiology recommendations. No interventions planned at this time as patient does not want any heart catheterization performed. Continue medical management with aspirin, Plavix, statin, beta mitra. 4. Heme positive stool: Resolved, H&H stable 5. Seizure disorder, old CVA: Currently on Keppra per neurology. Seizure precautions. Lorazepam as needed for breakthrough seizures. 6. Right internal carotid artery stenosis, right vertebral artery stenosis, left subclavian stenosis: Continue current conservative medical management as this appears to be chronic per neurology. 7. Acute kidney injury: Monitor BUN/creatinine, cautions with IV fluid hydration 8. GI prophylaxis: Protonix. 9. DVT prophylaxis: SCDs. 10. Chronic systolic congestive heart failure: Echocardiogram 08/18/17 shows moderate to severely reduced systolic function with ejection fraction 35-40%. 11. Dysphagia: Modified barium study 08/25/17 without any evidence of aspiration. Continue current diet Problem Qualifiers (1) Acute respiratory failure: Qualified Codes: J96.00 - Acute respiratory failure, unspecified whether with hypoxia or hypercapnia (2) Coronary artery disease: Qualified Codes: I25.10 - Atherosclerotic heart disease of [place] coronary artery without angina pectoris (3) CVA (cerebral vascular accident): Qualified Codes: I63.211 - Cerebral infarction due to unspecified occlusion or stenosis of right vertebral arteries Shai Perez MD Aug 30, 2017 12:33
[2017-08-31] VITALS (10 sets, daily range): BP systolic 89–135; BP diastolic 53–63; PULSE 85–92; RESP 18–20; TEMP 97.8–98.3; O2SAT 94–95
[2017-08-31] MEDS: levETIRAcetam INJ 500 MG in SODIUM CHLORIDE 0.9% INJ 100 ML IV SCH (06:31)
[2017-08-31] MEDS: PANTOPRAZOLE SODIUM 40 MG VIAL IV PUSH SCH (08:00)
[2017-08-31] MEDS: LEVOFLOXACIN 750 MG PREMIX INJ 150 ML IV SCH (08:00)
[2017-08-31] MEDS: ASPIRIN 81 MG CHEW TAB PO SCH (08:01)
[2017-08-31] MEDS: METOPROLOL TARTRATE 25 MG TAB PO SCH ×2 (08:01→21:14)
[2017-08-31] MEDS: SODIUM CHLORIDE 0.9% FLUSH 10 ML FLUSH IV FLUSH SCH ×2 (08:01→21:15)
[2017-08-31] MEDS: CLOPIDOGREL 75 MG TAB PO SCH (08:01)
[2017-08-31] MEDS: ATORVASTATIN 20 MG TAB PO SCH (08:01)
[2017-08-31] MEDS: RESP: ALBUTEROL 2.5 MG/IPRATROPIUM 0.5 MG NEB (SCH) NEB ×3 (08:40→20:05)
[2017-08-31 10:35] LABS: APTT (PATIENT) 30.9 SEC (24.3-30.1)
--- NOTE | 2017-08-31 11:27 | HHI.PR ---
Subjective Remarks Follow-up respiratory failure/pneumonia/seizure 08/26/17-patient seen and examined, some shortness of breath with decreased oxygen saturation requiring simple mask. Afebrile. 45 barium study 08/25/17 without any evidence of aspiration 08/27/17-patient seen and examined, currently on 7 L simple mask. Speaking today with much stronger voice 08/28/17-patient seen and examined; he does not want any heart catheterization performed. He is still short of breath and requiring simple mask. by the bedside 08/29/17-patient seen and examined, currently on 5 L nasal cannula and reports improvement of shortness of breath. Denies any chest pain. 08/30/17-patient seen and examined, no significant shortness of breath. Currently on 5-6 L nasal cannula with a simple mask on. 08/31/17-patient seen and examined, currently on 5 L nasal cannula and maintain oxygen saturation above 90%. Denies any significant shortness of breath. Case discussed with complex case manager regarding discharge disposition today Objective Vitals Vital Signs Date Time Temp Pulse Resp B/P (MAP) Pulse Ox O2 Delivery O2 Flow Rate FiO2 08/31/17 08:42 95 Nasal Cannula 5.00 08/31/17 08:00 97.9 87 18 128/62 (84) 95 Manual Cuff/Auscultation 08/31/17 05:26 98.1 91 20 133/60 (84) 95 08/31/17 00:20 98.1 85 20 135/63 (87) 94 08/30/17 21:03 98.4 93 20 121/58 (79) 92 08/30/17 20:27 87 08/30/17 19:30 93 Simple Mask 5.00 08/30/17 19:13 96 Nasal Cannula 5.00 08/30/17 16:21 98.9 79 18 116/56 (76) 94 08/30/17 16:20 93 08/30/17 13:27 97.6 88 18 136/62 (86) 96 I/O 08/30/17 08/30/17 08/30/17 08/31/17 08/31/17 08/31/17 07:00 15:00 23:00 07:00 15:00 23:00 Intake Total 480 ml Output Total 500 ml 300 ml Balance -20 ml -300 ml Intake Oral 480 ml Output Urine Total 500 ml 300 ml Result Diagram: 08/28/17 0755 Imaging Last Impressions Chest X-Ray 08/26/17 0000 Signed Impressions: Service Date/Time: Saturday, August 26, 2017 01:20 - CONCLUSION: Stable bilateral pulmonary infiltrates and small right effusion. Amauri Ocasio Jr., MD Modified Barium Swallow 08/25/17 0000 Signed Impressions: Service Date/Time: August 00:00 - CONCLUSION: Modified barium swallow. Ruiz Reis MD Brain MRI 08/19/17 0000 Signed Impressions: Service Date/Time: Saturday, August 19, 2017 13:02 - CONCLUSION: 1. Old left occipital lobe infarct 2. No evidence of acute intracranial pathology. Chronic ischemic changes as above. Leo Means MD Renal Ultrasound 08/18/17 0000 Signed Impressions: Service Date/Time: July 09:18 - CONCLUSION: Bilateral echogenic kidneys suggesting medical renal disease. Multiple simple cysts bilaterally. No evidence of hydronephrosis. Barry Chino MD Neck CTA 08/17/17 1519 Signed Impressions: Service Date/Time: Thursday, August 17, 2017 16:06 - CONCLUSION: 1. 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 2. 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 3. 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 4. The left vertebral artery is patent. Flow within the left vertebral is likely retrograde. 5. Plaquing but no hemodynamically significant stenosis seen at the left carotid bifurcation. 6. Reconstitution of the intracranial circulation on the right via the [place] of [place]. Chemo Pham MD Head CT 08/17/17 0000 Signed Impressions: Service Date/Time: Thursday, August 17, 2017 15:26 - CONCLUSION: 1. Old stroke, negative for an acute hemorrhage. 2. Findings were called to Dr. Healy at 15:40. Ancelmo Pham MD FACR Objective Remarks GENERAL: NAD SKIN: Warm and dry. HEAD: Normocephalic. EYES: No scleral icterus. No injection or drainage. NECK: Supple, trachea midline. No JVD or lymphadenopathy. CARDIOVASCULAR: Regular rate and rhythm without murmurs, gallops, or rubs. RESPIRATORY: Breath sounds decreased bilaterally. No accessory muscle use. GASTROINTESTINAL: Abdomen soft, non-tender, nondistended. MUSCULOSKELETAL: No cyanosis, or edema. BACK: Nontender without obvious deformity. No CVA tenderness. Procedures None A/P Problem List: (1) Acute respiratory failure ICD Code: J96.00 - Acute respiratory failure, unspecified whether with hypoxia or hypercapnia (2) Seizure ICD Code: R56.9 - Unspecified convulsions (3) Ascending aortic aneurysm ICD Code: I71.2 - Thoracic aortic aneurysm, without rupture (4) Dyslipidemia ICD Code: E78.5 - Hyperlipidemia, unspecified (5) Coronary artery disease ICD Code: I25.10 - Atherosclerotic heart disease of [place] coronary artery without angina pectoris (6) Acute kidney injury ICD Code: N17.9 - Acute kidney failure, unspecified (7) CVA (cerebral vascular accident) ICD Code: I63.9 - Cerebral infarction, unspecified Assessment and Plan 76-year-old man with 1. Acute respiratory failure:Extubated 08/19/17. Currently on 5 L nasal cannula. Continue supplemental oxygen, bronchodilators. A cappella, aggressive pulmonary toilet 2. Pneumonia: Currently on Levaquin which I will discontinue today 08/31/17. Maintain oxygen saturation above 92% 3. NSTEMI: Appreciate cardiology recommendations. No interventions planned at this time as patient does not want any heart catheterization performed. Continue medical management with aspirin, Plavix, statin, beta mitra. 4. Heme positive stool: Resolved, H&H stable 5. Seizure disorder, old CVA: Currently on Keppra IV per neurology, will switch to by mouth. Seizure precautions. Lorazepam as needed for breakthrough seizures. 6. Right internal carotid artery stenosis, right vertebral artery stenosis, left subclavian stenosis: Continue current conservative medical management as this appears to be chronic per neurology. 7. Acute kidney injury: Monitor BUN/creatinine, cautions with IV fluid hydration 8. GI prophylaxis: Protonix. 9. DVT prophylaxis: SCDs. 10. Chronic systolic congestive heart failure: Echocardiogram 08/18/17 shows moderate to severely reduced systolic function with ejection fraction 35-40%. 11. Dysphagia: Modified barium study 08/25/17 without any evidence of aspiration. Continue current diet Problem Qualifiers (1) Acute respiratory failure: Qualified Codes: J96.00 - Acute respiratory failure, unspecified whether with hypoxia or hypercapnia (2) Coronary artery disease: Qualified Codes: I25.10 - Atherosclerotic heart disease of [place] coronary artery without angina pectoris (3) CVA (cerebral vascular accident): Qualified Codes: I63.211 - Cerebral infarction due to unspecified occlusion or stenosis of right vertebral arteries Shai Perez MD Aug 31, 2017 11:27
--- NOTE | 2017-08-31 11:40 | HHI.DS ---
Discharge Summary Admission Date Aug 17, 2017 at 16:41 Discharge Date: Aug 31, 2017 Admitting Diagnosis stroke (1) Acute respiratory failure ICD Code: J96.00 - Acute respiratory failure, unspecified whether with hypoxia or hypercapnia Diagnosis: Principal (2) Seizure ICD Code: R56.9 - Unspecified convulsions Diagnosis: Principal (3) Ascending aortic aneurysm ICD Code: I71.2 - Thoracic aortic aneurysm, without rupture Diagnosis: Secondary (4) Dyslipidemia ICD Code: E78.5 - Hyperlipidemia, unspecified Diagnosis: Principal (5) Coronary artery disease ICD Code: I25.10 - Atherosclerotic heart disease of [place] coronary artery without angina pectoris Diagnosis: Principal (6) Acute kidney injury ICD Code: N17.9 - Acute kidney failure, unspecified Diagnosis: Principal (7) CVA (cerebral vascular accident) ICD Code: I63.9 - Cerebral infarction, unspecified Diagnosis: Principal Procedures None Brief History - From Admission This is a 76-year-old male. Date of admission 08/17/2017. Past medical history includes hypertension, dyslipidemia, history of CVA and seizure disorder NOS. Patient presents to [facility] the following history. Over the past several weeks, patient has stopped on his own. All of his home medications according to because "he did not like how it made him feel". We currently do not have a listing of these medications. Irregardless, at 12: 30 PM this afternoon patient was having lunch when he had trouble striking his work on his right side. He laid down to rest when he is noted to have a seizure by his . E VAC was initiated and patient received 2 mg Ativan the field in route here. Patient received have another seizure while receiving CT the brain and was emergently intubated using etomidate and rocuronium CT brain revealed old left parieto-occipital and right orbital frontal CVA. 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 The RCA is intracerebral flow from the left internal carotid artery. 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 Dr. Mathews did not recommend alteplase therapy. I discussed with neurology possibility of any further intervention such as stent retrieval/thromboembolectomy. She did not recommend this at this time. Recommending MRI brain and loading with levetiracetam for seizure activity. EEG will be performed urgently. At the present time, patient's systolic blood pressure is around 95. Patient spontaneously moving left upper and lower extremity. The right upper and lower extremities flaccid. Noted a past medical history is obtained from [id number]. is currently distraught and unable to provide meaningful information. Patient has not been to this facility before. CBC/BMP: 08/28/17 0755 Significant Findings Laboratory Tests Test 08/29/17 07:19 08/30/17 08:25 08/31/17 08:20 Activated Partial Thromboplast Time 30.6 SEC (24.3-30.1) 30.9 SEC (24.3-30.1) Imaging Last Impressions Chest X-Ray 08/26/17 0000 Signed Impressions: Service Date/Time: Saturday, August 26, 2017 01:20 - CONCLUSION: Stable bilateral pulmonary infiltrates and small right effusion. Amauri Ocasio Jr., MD Modified Barium Swallow 08/25/17 0000 Signed Impressions: Service Date/Time: August 00:00 - CONCLUSION: Modified barium swallow. Ruiz Reis MD Brain MRI 08/19/17 0000 Signed Impressions: Service Date/Time: Saturday, August 19, 2017 13:02 - CONCLUSION: 1. Old left occipital lobe infarct 2. No evidence of acute intracranial pathology. Chronic ischemic changes as above. Leo Means MD Renal Ultrasound 08/18/17 0000 Signed Impressions: Service Date/Time: July 09:18 - CONCLUSION: Bilateral echogenic kidneys suggesting medical renal disease. Multiple simple cysts bilaterally. No evidence of hydronephrosis. Barry Chino MD Neck CTA 08/17/17 1519 Signed Impressions: Service Date/Time: Thursday, August 17, 2017 16:06 - CONCLUSION: 1. 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 2. 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 3. 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 4. The left vertebral artery is patent. Flow within the left vertebral is likely retrograde. 5. Plaquing but no hemodynamically significant stenosis seen at the left carotid bifurcation. 6. Reconstitution of the intracranial circulation on the right via the [place]. Chemo Pham MD Head CT 08/17/17 0000 Signed Impressions: Service Date/Time: Tuesday, August 17, 2017 15:26 - CONCLUSION: 1. Old stroke, negative for an acute hemorrhage. 2. Findings were called to Dr. Healy at 15:40. Ancelmo Pham MD FACR PE at Discharge GENERAL: NAD SKIN: Warm and dry. HEAD: Normocephalic. EYES: No scleral icterus. No injection or drainage. NECK: Supple, trachea midline. No JVD or lymphadenopathy. CARDIOVASCULAR: Regular rate and rhythm without murmurs, gallops, or rubs. RESPIRATORY: Breath sounds decreased bilaterally. No accessory muscle use. GASTROINTESTINAL: Abdomen soft, non-tender, nondistended. MUSCULOSKELETAL: No cyanosis, or edema. BACK: Nontender without obvious deformity. No CVA tenderness. Hospital Course She initially admitted secondary to respiratory failure for which she was under the care of critical care medicine intubated, but extubated on 08/19/17. He was also started on IV antibiotics for pneumonia which patient completed prior to discharge.. Aggressive respiratory therapy was provided however patient remains on 6 L nasal cannula which was subsequently weaned down to 5 L prior to discharge. The hospitalization, he was found to be in non-ST elevation [place] for which cardiology was consulted, but no intervention was planned because patient did not want any heart catheterization performed. He was treated medically with aspirin, Plavix, statin and beta mitra. Neurology was consulted secondary to seizure disorder and patient was started on IV Keppra 500 mg every 12 hours, which was switched to by mouth prior to discharge. Kidney function improved with IV fluid hydrations as well as recommendation from nephrology. A barium swallow study was performed and patient's diet was advanced accordingly. Physical therapy was consulted. DVT and GI prophylaxis were provided. Prior to discharge, patient's condition remained stable. Pt Condition on Discharge: Stable Discharge Disposition: Discharge to SNF Discharge Time: > 30 minutes Discharge Instructions DIET: Follow Instructions for: Heart Healthy Diet Activities you can perform: Regular-No Restrictions Follow up Referrals: Cardiology Nephrology Neurology PCP Follow-up - 2-3 Days New Medications: Albuterol 18 GM Inh (Ventolin Hfa 18 GM Inh) 90 Mcg/Act Aer 2 PUFF INH Q4-6H PRN for SHORTNESS OF BREATH, #3 INHALER 0 Refills Ipratropium HFA 12.9 GM Inh (Atrovent HFA 12.9 GM Inh) 17 Mcg/Actuation Aer 2 PUFF INH Q6HR PRN for SHORTNESS OF BREATH, #3 INHALER 0 Refills Oxygen (O2) (Oxygen (O2)) Inha LITER MATTHEW.CANULA CONTINUOUS for Prevent Hypoxemia, #1 Oxygen Concentrator Portable Gaseous 2 L/min via Nasal Canula Continuous For 99 months Tiotropium Inh (Spiriva Handihaler) 18 Mcg Cap 18 MCG INH DAILY for COPD, #30 CAP 0 Refills 1 capsule = 18 mcg Aspirin (Aspirin Low Strength) 81 Mg Chew 81 MG PO DAILY for Prevent Blood Clot, #30 EA 3 Refills Atorvastatin (Atorvastatin) 20 Mg Tab 20 MG PO DAILY for Cholesterol Management, #30 TAB 11 Refills Clopidogrel (Plavix) 75 Mg Tab 75 MG PO DAILY for Prevent Blood Clot, #30 TAB 11 Refills Levetiracetam (Keppra) 500 Mg Tab 500 MG PO Q12HR for Control Seizures, #60 TAB 11 Refills Metoprolol Tartrate (Metoprolol Tartrate) 25 Mg Tab 25 MG PO Q12HR for Blood Pressure Management, #60 TAB 11 Refills Continued Medications: Escitalopram (Lexapro) 10 Mg Tab 10 MG PO DAILY, #30 TAB 0 Refills Furosemide (Lasix) 20 Mg Tab 20 MG PO BID, #60 TAB 0 Refills Ropinirole (Requip) 2 Mg Tab 2 MG PO HS, #30 TAB 0 Refills Discontinued Medications: Lamotrigine (Lamotrigine) 100 Mg Tab 100 MG PO BID for Control Seizures, #60 TAB 0 Refills Lisinopril (Lisinopril) 2.5 Mg Tab 2.5 MG PO DAILY, #30 TAB 0 Refills Shai Perez MD Aug 31, 2017 11:40
[2017-08-31] MEDS ORDERED: VENTAER INH (11:58)
[2017-08-31] MEDS ORDERED: ATOR20TA15 PO (11:58)
[2017-08-31] MEDS ORDERED: METO25TA3 PO (11:58)
[2017-08-31] MEDS ORDERED: LEVE500 PO (11:58)
[2017-08-31] MEDS ORDERED: SPIRCAP INH (11:58)
[2017-08-31] MEDS ORDERED: ASPI81CH25 PO (11:58)
[2017-08-31] MEDS ORDERED: PLAV75TA29 PO (11:58)
[2017-08-31] MEDS ORDERED: IPRA17I INH (11:58)
[2017-08-31] MEDS ORDERED: OXYGEN NAS.CANULA (12:00)
[2017-08-31] MEDS: levETIRAcetam 500 MG TAB PO SCH (21:13)
[2017-09-01 04:00] VITALS: BP_SYST 124; BP_DIAS 58; BP_DIAS 64; PULSE 85; RESP 18; TEMP 98.3; O2SAT 97
[2017-09-01 08:00] VITALS: BP 135/63; PULSE 84; RESP 18; TEMP 98.2; O2SAT 95
[2017-09-01] MEDS: LEVOFLOXACIN 750 MG PREMIX INJ 150 ML IV SCH (09:28)
[2017-09-01] MEDS: RESP: ALBUTEROL 2.5 MG/IPRATROPIUM 0.5 MG NEB (SCH) NEB ×2 (09:29→13:48)
[2017-09-01 09:30] VITALS: O2SAT 93
[2017-09-01] MEDS: METOPROLOL TARTRATE 25 MG TAB PO SCH (09:33)
[2017-09-01] MEDS: ATORVASTATIN 20 MG TAB PO SCH (09:33)
[2017-09-01] MEDS: PANTOPRAZOLE SODIUM 40 MG VIAL IV PUSH SCH (09:33)
[2017-09-01] MEDS: levETIRAcetam 500 MG TAB PO SCH (09:33)
[2017-09-01] MEDS: CLOPIDOGREL 75 MG TAB PO SCH (09:33)
[2017-09-01] MEDS: SODIUM CHLORIDE 0.9% FLUSH 10 ML FLUSH IV FLUSH SCH (09:33)
[2017-09-01] MEDS: ASPIRIN 81 MG CHEW TAB PO SCH (09:33)
[2017-09-01 09:59] LABS: APTT (PATIENT) 30.1 SEC (24.3-30.1)
[2017-09-01 11:45] VITALS: PULSE 81
--- NOTE | 2017-09-01 12:05 | HHI.PR ---
Subjective Remarks Follow-up respiratory failure/pneumonia/seizure 08/26/17-patient seen and examined, some shortness of breath with decreased oxygen saturation requiring simple mask. Afebrile. 45 barium study 08/25/17 without any evidence of aspiration 08/27/17-patient seen and examined, currently on 7 L simple mask. Speaking today with much stronger voice 08/28/17-patient seen and examined; he does not want any heart catheterization performed. He is still short of breath and requiring simple mask. by the bedside 08/29/17-patient seen and examined, currently on 5 L nasal cannula and reports improvement of shortness of breath. Denies any chest pain. 08/30/17-patient seen and examined, no significant shortness of breath. Currently on 5-6 L nasal cannula with a simple mask on. 08/31/17-patient seen and examined, currently on 5 L nasal cannula and maintain oxygen saturation above 90%. Denies any significant shortness of breath. Case discussed with leather case finisher regarding discharge disposition today 09/01/17-patient seen and examined, discharge order was seen since yesterday. Currently on 4 L nasal cannula. Status looking for discharge to SNF. Afebrile. Objective Vitals Vital Signs Date Time Temp Pulse Resp B/P (MAP) Pulse Ox O2 Delivery O2 Flow Rate FiO2 09/01/17 11:45 93 Nasal Cannula 4.00 09/01/17 11:45 81 09/01/17 09:30 93 Nasal Cannula 4.00 09/01/17 08:00 98.2 84 18 135/63 (87) 95 09/01/17 04:00 98.3 85 18 124/58 (80) 97 08/31/17 23:38 94 Nasal Cannula 5.00 08/31/17 21:41 133/62 (85) 08/31/17 21:19 98.3 85 18 89/53 (65) 95 08/31/17 20:08 94 Nasal Cannula 5.00 08/31/17 19:24 92 08/31/17 16:00 98.3 86 18 113/62 (79) 94 I/O 08/31/17 08/31/17 08/31/17 09/01/17 09/01/17 09/01/17 06:59 14:59 22:59 06:59 14:59 22:59 Intake Total 105 ml Output Total 300 ml 125 ml 250 ml Balance -300 ml -125 ml -250 ml 105 ml IV Total 105 ml Output Urine Total 300 ml 125 ml 250 ml # Voids 3 1 # Bowel Movements 0 Result Diagram: 08/28/17 0755 Objective Remarks GENERAL: NAD SKIN: Warm and dry. HEAD: Normocephalic. EYES: No scleral icterus. No injection or drainage. NECK: Supple, trachea midline. No JVD or lymphadenopathy. CARDIOVASCULAR: Regular rate and rhythm without murmurs, gallops, or rubs. RESPIRATORY: Breath sounds decreased bilaterally. No accessory muscle use. GASTROINTESTINAL: Abdomen soft, non-tender, nondistended. MUSCULOSKELETAL: No cyanosis, or edema. BACK: Nontender without obvious deformity. No CVA tenderness. Procedures None A/P Problem List: (1) Acute respiratory failure ICD Code: J96.00 - Acute respiratory failure, unspecified whether with hypoxia or hypercapnia (2) Seizure ICD Code: R56.9 - Unspecified convulsions (3) Ascending aortic aneurysm ICD Code: I71.2 - Thoracic aortic aneurysm, without rupture (4) Dyslipidemia ICD Code: E78.5 - Hyperlipidemia, unspecified (5) Coronary artery disease ICD Code: I25.10 - Atherosclerotic heart disease of [place] coronary artery without angina pectoris (6) Acute kidney injury ICD Code: N17.9 - Acute kidney failure, unspecified (7) CVA (cerebral vascular accident) ICD Code: I63.9 - Cerebral infarction, unspecified Assessment and Plan 76-year-old man with 1. Acute respiratory failure:Extubated 08/19/17. Currently on 4-5 L nasal cannula. Continue supplemental oxygen, bronchodilators. A cappella, aggressive pulmonary toilet 2. Pneumonia: d/c Levaquin today 09/01/17. Maintain oxygen saturation above 92% 3. NSTEMI: Appreciate cardiology recommendations. No interventions planned at this time as patient does not want any heart catheterization performed. Continue medical management with aspirin, Plavix, statin, beta mitra. 4. Heme positive stool: Resolved, H&H stable 5. Seizure disorder, old CVA: Currently on Keppra IV per neurology, will switch to by mouth. Seizure precautions. Lorazepam as needed for breakthrough seizures. 6. Right internal carotid artery stenosis, right vertebral artery stenosis, left subclavian stenosis: Continue current conservative medical management as this appears to be chronic per neurology. 7. Acute kidney injury: Monitor BUN/creatinine, cautions with IV fluid hydration 8. GI prophylaxis: Protonix. 9. DVT prophylaxis: SCDs. 10. Chronic systolic congestive heart failure: Echocardiogram 08/18/17 shows moderate to severely reduced systolic function with ejection fraction 35-40%. 11. Dysphagia: Modified barium study 08/25/17 without any evidence of aspiration. Continue current diet Problem Qualifiers (1) Acute respiratory failure: Qualified Codes: J96.00 - Acute respiratory failure, unspecified whether with hypoxia or hypercapnia (2) Coronary artery disease: Qualified Codes: I25.10 - Atherosclerotic heart disease of [place] coronary artery without angina pectoris (3) CVA (cerebral vascular accident): Qualified Codes: I63.211 - Cerebral infarction due to unspecified occlusion or stenosis of right vertebral arteries Shai Perez MD Sep 01, 2017 12:05
[2017-09-01 12:30] VITALS: BP 123/60; PULSE 90; RESP 18; TEMP 98.1; O2SAT 96
[2017-09-01 16:18] VITALS: BP 106/55; PULSE 83; RESP 18; TEMP 97.3; O2SAT 96
== END 2017-09-01 19:45 | DRG 64 ==
LOC: NEPC 15:16 → NEDA 16:41 → HIME 17:40 → N05B 08-25 14:06
PROVIDERS: ADMIT Hospitalist; ATTEND Hospitalist
PROC: 5A1945Z Respiratory Ventilation, 24-96 Consecutive Hours (ICD-10-PCS; principal; 2017-08-17)
PROC: 0BH17EZ Insertion of Endotracheal Airway into Trachea, Via Natural or Artificial Opening (ICD-10-PCS; 2017-08-17)
DX: I63.211 Cerebral infarction due to unspecified occlusion or stenosis of right vertebral artery (principal); I21.4 Non-ST elevation (NSTEMI) myocardial infarction; J96.00 Acute respiratory failure, unspecified whether with hypoxia or hypercapnia; J18.9 Pneumonia, unspecified organism; N17.9 Acute kidney failure, unspecified; G81.91 Hemiplegia, unspecified affecting right dominant side; I82.B12 Acute embolism and thrombosis of left subclavian vein; I50.22 Chronic systolic (congestive) heart failure; N28.1 Cyst of kidney, acquired; I65.21 Occlusion and stenosis of right carotid artery; I10 Essential (primary) hypertension; E78.00 Pure hypercholesterolemia, unspecified; I25.10 Atherosclerotic heart disease of native coronary artery without angina pectoris; I71.2 Thoracic aortic aneurysm, without rupture; E78.5 Hyperlipidemia, unspecified; I66.21 Occlusion and stenosis of right posterior cerebral artery; Z86.79 Personal history of other diseases of the circulatory system; Z86.73 Personal history of transient ischemic attack (TIA), and cerebral infarction without residual deficits; Z95.1 Presence of aortocoronary bypass graft; Z87.891 Personal history of nicotine dependence; I70.8 Atherosclerosis of other arteries; M19.90 Unspecified osteoarthritis, unspecified site; M81.0 Age-related osteoporosis without current pathological fracture; F31.9 Bipolar disorder, unspecified; G25.81 Restless legs syndrome; Z85.828 Personal history of other malignant neoplasm of skin; Z91.19 Patient's noncompliance with other medical treatment and regimen; I73.9 Peripheral vascular disease, unspecified; Z53.20 Procedure and treatment not carried out because of patient's decision for unspecified reasons; Z95.2 Presence of prosthetic heart valve; R19.5 Other fecal abnormalities; R56.9 Unspecified convulsions; Z23 Encounter for immunization
CPT/HCPCS: 31500; 36600; 70450; 70496; 70498; 70551; 71010; 74230; 76775; 80048; 80053; 80061; 80307; 81001; 82272; 82435; 82550; 82565; 82570; 82805; 82947; 82948; 83036; 83605; 83735; 84100; 84132; 84295; 84300; 84443; 84484; 84520; 85014; 85018; 85025; 85384; 85610; 85730; 86077; 86850; 86870; 86880; 86900; 86901; 86902; 87205; 87641; 90686; 90732; 93005; 93306; 94002; 94003; 94150; 94640; 94664; 94667; 94668; 95819; C9113; J1644; J1650; J1953; J1956; J2060; J7030; J7042; Q2038; Q9967

== ENCOUNTER 2017-10-03 08:18 | Day surgery (SDC) | payer OTHER ==
[~2017-10-03] VITALS: Ht 175.3 cm; Wt 52.3 kg
[~2017-10-03 08:18] MED LIST: ASPI81CH25 PO; ATOR20TA15 PO; FURO1TAB62 PO; IPRA17I INH; LEVE500 PO; LEXA10TA PO; METO25TA3 PO; OXYGEN NAS.CANULA; PLAV75TA29 PO; ROPI2 PO; SPIRCAP INH; VENTAER INH
[2017-10-03] MEDS ORDERED: IOHEXOL 350 MG/ML 100 ML BTL (for Cath Lab) OTHER ONE (08:19)
[2017-10-03] MEDS ORDERED: NS 1000P @30 MLS/HR (KVO) IV SCH (09:00)
[2017-10-03] MEDS ORDERED: diphenhydrAMINE HCL 50 MG CAP PO SCH (09:00)
[2017-10-03] MEDS ORDERED: ASPI-183 PO (09:00)
[2017-10-03 09:01] VITALS: BP 141/77; PULSE 64; RESP 18; TEMP 97.6; O2SAT 93
[2017-10-03 09:26] LABS: AUTOMATED NEUTROPHIL # 3.9 TH/MM3 (1.8-7.7); BASOPHIL # 0.1 TH/MM3 (0-0.2); EOSINOPHIL # 0.1 TH/MM3 (0-0.4); EOSINOPHIL % 1.7 % (0.0-4.0); HEMATOCRIT 44.3 % (39.0-51.0); HEMO FLAGS DIFF FINAL; LYMPH % 25.3 % (9.0-44.0); LYMPHOCYTE # 1.5 TH/MM3 (1.0-4.8); MEAN CELL VOLUME 85.3 FL (80.0-100.0); MEAN CORPUSCULAR HEMOGLOBIN 27.2 PG (27.0-34.0); MEAN CORPUSCULAR HGB CONC 31.9 % (32.0-36.0); MONO % 8.1 % (0.0-8.0); NEUT % 63.9 % (16.0-70.0); PLATELET COUNT 162 TH/MM3 (150-450); RED BLOOD COUNT 5.19 MIL/MM3 (4.50-5.90); RED CELL DISTRIBUTION WIDTH 16.6 % (11.6-17.2); WHITE BLOOD COUNT 6.1 TH/MM3 (4.0-11.0)
[2017-10-03 09:35] LABS: INTERNATIONAL NORMALIZED RATIO 1.1 RATIO; PROTHROMBIN TIME - PATIENT 11.7 SEC (9.8-11.6)
[2017-10-03] MEDS ORDERED: MIDAZOLAM HCL 2 MG/2 ML VIAL ONE (09:37)
[2017-10-03] MEDS ORDERED: HEPARIN-NS/PF INJ 1,000 ML ONE (09:37)
[2017-10-03 09:38] LABS: BICARBONATE 31.9 MEQ/L (21.0-32.0); POTASSIUM 3.5 MEQ/L (3.5-5.1)
[2017-10-03] MEDS ORDERED: HEPARIN SODIUM - IV 10,000 UNITS/10 ML VIAL ONE (10:35)
[2017-10-03] MEDS ORDERED: VERAPAMIL HCL 5 MG/2 ML VIAL ONE ×2 (10:35→10:48)
[2017-10-03] MEDS ORDERED: SODIUM CHLOR 0.9% 1000 ML INJ 1,000 ML IV SCH (11:08)
[2017-10-03] MEDS ORDERED: ATROPINE SULFATE 1 MG/ML VIAL IV PUSH PRN (11:15)
[2017-10-03] MEDS ORDERED: MISC INFORMATION XX ONE (11:15)
[2017-10-03] MEDS ORDERED: ONDANSETRON HCL 4 MG/2 ML VIAL IV PUSH PRN (11:15)
--- NOTE | 2017-10-03 11:27 | CATHPROC ---
[facility] HIS Report Study Information Study Number Admission Scheduled Start Study Start [id number] Oct 03 2017 8:18AM 10/03/2017 Oct 03 2017 9:35AM [facility] Service Cardiac Catheterization Admit Source Facility Department Emergency department [facility] - Cctv Technician Physician and Clinical Staff Initial Evangelist Ramirez Keg Header Audrey Sanders,BARBARA Keg Header John Tafoya,BARBARA Recorder Estrada Srinivasan,RT(R) Randi Blas,RT(R) (BS) Procedures Performed Procedure Location (Site) Vessel Name Coronary Angiograms LCA Left Coronary Coronary Angiograms RCA Right Coronary Coronary Angiograms SVG-OM CIRC Coronary Angiograms SVG-RCA Right Coronary Coronary Angiograms Gft. Stump 1 SVG Graft Wire insertion Fem Art (right) Femoral Art Equipment Time Income Auditor Description Size Mfg Part Number Used/Scraped TRANSDUCER, TRUWAVE [id number] 10:16 GARCIA MANZANO * Used W/STOCKCOCK *[id number] INTRODUCER SET, 10:16 [employer] FR 5 [id number] *[id number] Used MICROPUNCTURE, STIFFENED 534-520T *[id number] 534-521T *[id number] 534-542T *[id number] 10:16 [employer] INDUSTRIES PACK, CCL CUSTOM * Used *[id number] BAND, RADIAL COMPRESSION TR [id number] 11:12 [employer] MEDICAL 24CM Used SHORT 24 *[id number] 10:16 ZIMPER[employer]UM WIRE, 3MMJ .035 180CM 180CM Used *[id number] 10:16 NAMIC MANIFOLD, 4 PORT * Used *[id number] 10:16 [employer] OMNIPAQUE, 350 MG, 150ML 150ML [id number] Used [id number] 10:16 [employer] MED[employer] BLANKET,WARM AIR CCL * Used *[id number] 10:16 TERUMO MEDICAL SHEATH, FR5 TERUMO (10CM) FR 5 Used *[id number] SHEATH, FR6 TRANSRADIAL [id number] 10:35 TERUMO MEDICAL FR 6 Used SLENDER 10CM *[id number] History: Allergies Allergy Reaction No Known Allergies History: Risk Factors Family History of Hypertension Dyslipidemia Previous TX Previous Heart Failure Premature CAD Yes Yes Yes Yes Yes Prior Valve Prior PCI Prior CABG Prior CABGDate Surgery Yes No Yes 11/21/2012 Cerebrovascular Peripheral Artery Chronic Lung On Dialysis Diabetes Disease Disease Disease No Yes Yes No No History: Stress Tests Stress or Imaging Studies Performed No History: Other Current Smoker Method Quit Packs a Day Years Used Pack Years No Cigarettes 10 Years Ago 1 30 30 Labs Hgb (g/dl) Hct (%) WBC (l/cumm) Platelets (thousands) 11.60-17.00 35.00-51.00 4.00-11.00 150.00-450.00 14.1 44.3 6.1 162 Glucose (mg/dl) BUN (mg/dl) Creatinine (mg/dl) BUN:Creatinine (1:x) 74.00-106.00 7.00-18.00 0.50-1.30 10.00-20.00 98 27 1.8 15 Na (meq/l) K (meq/l) 136.00-145.00 3.50-5.10 3.5 3.5 INR (PTT:PT) 0.90-1.10 1.1 CPK-MB (ng/ML) 0.50-3.60 Not Drawn Medication Medication Total Dose (Bolus/Oral) Medication Total Dosage/Unit 1% XYLOCAINE 5 mL FENTANYL 25 mcg RADIAL COCKTAIL 5 mL (Bolus) VERSED 1 mg Medications (Bolus/Oral) Medication Time Given Dosage/Unit Administered By Reason 10/03/2017 10:12:45 VERSED 1 mg Audrey Sanders AM Patient arrived on 1 mg VERSED given by Audrey Sanders, BARBARA via Peripheral IV. Ordered by Evangelist Jauregui. 10/03/2017 10:13:37 FENTANYL 25 mcg Audrey Sanders AM Patient arrived on 25 mcg FENTANYL given by Audrey Sanders, BARBARA via Peripheral IV. Ordered by Evangelist Wright. 10/03/2017 10:49:56 1% XYLOCAINE 5 mL Evangelist Jauregui AM 5 mL 1% XYLOCAINE given in lab by Evangelist Jauregui in Left Radial via Subcutaneous. Ordered by Evangelist Reyes. 10/03/2017 10:52:13 RADIAL COCKTAIL 5 mL (Bolus) Evangelist Jauregui AM 5 mL (Bolus) RADIAL COCKTAIL given in lab by Evangelist Jauregui via Radial. Using [Solution Name]. Ord ered by Evangelist Jauregui. 2mg verapamil, 2000units heparin, 200mcg Nitro. Medication (Drip) Medication Time Given Dosage/Unit Concentration/Unit Diluent (ml) Solution IV Solutions 10/03/2017 9:39:07 AM 0 mL (IV) 500 NaCl .9 Patient arrived on IV Solutions given by Evangelist Jauregui in Left Antecubital via Peripheral IV. Pum p/Drip Flow = 20 ml/hr using NaCl .9. Ordered by Evangelist Jauregui. Initial Case Assessment Cardiovascular HR Rhythm NIBP Chest Pain 65 sr 146/76 0 Edema Present Skin color Skin None Normal Warm Dry Circulatory - Right Pulses Dorsalis Pedis Femoral d 3 Scale (0,1,2,3,4,d) Circulatory - Left Pulses Dorsalis Pedis Femoral d 3 Scale (0,1,2,3,4,d) Neurological State Oriented to time-place- Alert Moves all extremities person Respiration - General Respiration Rate SpO2 (%) O2 (lpm) (B/min) 18 98 0 Final Case Assessment Cardiovascular HR Rhythm NIBP Chest Pain 72 sr 141/74 0 Edema Present Skin color Skin None Normal Warm Dry Circulatory - Right Pulses Dorsalis Pedis Femoral d 3 Scale (0,1,2,3,4,d) Circulatory - Left Pulses Dorsalis Pedis Femoral d 3 Scale (0,1,2,3,4,d) Neurological State Oriented to time-place- Alert Moves all extremities person Respiration - General Respiration Rate SpO2 (%) O2 (lpm) (B/min) 15 100 2 Chronological Log Time Study Chronological Log 9:35:12 Patient arrived via Bed. 9:35:14 Patient Name, D.O.B, / Armband Verified By R.N. 9:35:15 Consent signed by the physician and the patient and verified by the Cctv Technician staff. 9:35:17 Pre-op and post- op instructions given; patient acknowledges understanding of instructions. 9:35:37 Verbal Stimulation=2 Physical Stimulation=2 Airway=2 Respiration=2 TOTAL=8. (0=absent, 1=li mited, 2=present) 9:35:47 Presedation assessment performed by Cctv Technician RN. 9:35:49 Patient has been NPO for More than 6Hrs. 9:38:29 Skin Breakdown-none present per patient. 9:38:54 A # 20 IV was noted in the Antecubital (left). Grade = 0 Patient arrived on IV Solutions given by Evangelist Jauregui in Left Antecubital via Peripheral I V. Pump/Drip Flow = 20 9:39:07 ml/hr using NaCl .9. Ordered by Evangelist Jauregui. 9:39:29 History and physical on the chart or being dictated. Vitals capture started with the following parameters, Patient=Adult, Interval=3 min, Initial Pr rcdtuq=282 mmHg, 9:40:27 Deflation Rate=5 mmHg, Cuff placed on Right Arm 9:41:03 HR=66 bpm, DRYT=666/76 mmhg, SpO2=96.0 %, Resp=18 B/min, Cordero=2 Assessment: Initial Case, HR=65 BPM, Rhythm=sr, YEJG=107/76 mmhg, Chest Pain=0, Edema=None, Col or=Normal, Skin = Warm, Dry Right Pulses: Lasha Ped=d, Femoral=3 9:42:54 Left Pulses: Lasha Ped=d, Femoral=3 Neurological: State=Alert, Ox3, [place] Respiration: Resp=18 B/min, SpO2=98 %, O2=0 lpm 9:43:00 Reference ECG taken 9:44:03 HR=67 bpm, RZMG=807/69 mmhg, SpO2=95.0 %, Resp=18 B/min, Cordero=2 9:46:23 Bilateral groins prepped with 2% chlorhexidine, and draped after a 3 minute waiting time. 9:46:59 HR=67 bpm, YWDL=736/77 mmhg, CcK3=613.0 %, Resp=8 B/min, Cordero=2 9:49:59 HR=64 bpm, UYSF=666/78 mmhg, ZpV3=871.0 %, Resp=24 B/min, Cordero=2 9:53:04 HR=65 bpm, ROBU=318/75 mmhg, MaU9=208.0 %, Resp=35 B/min, Cordero=2 9:54:06 MD paged 9:54:12 Pressure channel 1 zeroed. 9:56:02 HR=63 bpm, LZUI=803/71 mmhg, JjK6=642.0 %, Resp=13 B/min, Cordero=2 9:59:02 HR=65 bpm, QMYC=817/72 mmhg, JcT8=474.0 %, Resp=18 B/min, Cordero=2 10:02:02 HR=64 bpm, GERV=486/71 mmhg, MhS0=017.0 %, Resp=20 B/min, Cordero=2 10:05:03 HR=66 bpm, YCKS=610/70 mmhg, TaF6=798.0 %, Resp=18 B/min, Cordero=2 10:08:00 MD arrived. 10:08:01 HR=66 bpm, AACA=315/73 mmhg, FyV2=460.0 %, Resp=13 B/min, Cordero=2 10:11:03 HR=65 bpm, BGDW=820/69 mmhg, SpO2=99.0 %, Resp=18 B/min, Cordero=2 Time Out. Correct patient, correct procedure, correct physician, power injector not loaded with contrast with surgical 10:11:41 team present. Time Out Concurred by MD and individual staff in procedure. Not loaded at this ti me. 10:12:33 Presedation re-assessment performed by Cctv Technician RN. 10:12:45 Patient arrived on 1 mg VERSED given by Audrey Sanders RN via Peripheral IV. Ordered by Evangelist Escobar. 10:12:48 Case Start 10:13:37 Patient arrived on 25 mcg FENTANYL given by Audrey Sanders RN via Peripheral IV. Ordered by Evangelist Jauregui. 10:14:05 HR=65 bpm, VXKX=524/66 mmhg, CwG9=968.0 %, Resp=12 B/min, Cordero=2 10:15:01 Access site was Right Femoral Artery. 10:15:47 A SHEATH, FR5 TERUMO (10CM) FR 5 was advanced into the Fem Art (right) using the Percutaneo us technique. A JR 4.0 INFINITI CATHETER FR 5 was advanced over a wire. OMNIPAQUE, 350 MG, 150ML 150ML was us ed for 10:15:54 injections. 10:16:04 The SVG-RCA was injected and visualized at various angles. OMNIPAQUE, 350 MG, 150ML 150ML u sed. Recorded Pressure: LV, Ao, HR=52, Condition=Condition 1 10:16:59 (Left Ventricle) LV 124/2/5, (Aorta) Ao 115/53/75 10:17:04 HR=57 bpm, ONBG=319/65 mmhg, BwQ5=768.0 %, Resp=16 B/min, Cordero=2 10:19:57 The RCA was injected and visualized at various angles. OMNIPAQUE, 350 MG, 150ML 150ML used . 10:20:04 HR=66 bpm, LBGW=633/66 mmhg, NzI6=849.0 %, Resp=13 B/min, Cordero=2 10:20:21 The SVG-OM was injected and visualized at various angles. OMNIPAQUE, 350 MG, 150ML 150ML us ed. 10:21:20 The Gft. Stump 1 was injected and visualized at various angles. OMNIPAQUE, 350 MG, 150ML 15 0ML used. 10:23:04 HR=64 bpm, KDAW=296/67 mmhg, NuL6=409.0 %, Resp=28 B/min, Cordero=2 10:23:43 Catheter was removed A JL 4.0 INFINITI CATHETER FR 5 was advanced over a wire. OMNIPAQUE, 350 MG, 150ML 150ML was us ed for 10:23:45 injections. 10:25:20 The LCA was injected and visualized at various angles. OMNIPAQUE, 350 MG, 150ML 150ML used . 10:26:06 HR=64 bpm, WNDN=008/63 mmhg, CdU4=607.0 %, Resp=29 B/min, Cordero=2 10:29:05 HR=72 bpm, LBXT=681/65 mmhg, RxE6=582.0 %, Resp=16 B/min, Cordero=2 10:29:22 Catheter was removed A MPA-2 INFINITI CATHETER FR 5 was advanced over a wire. OMNIPAQUE, 350 MG, 150ML 150ML was use d for 10:29:24 injections. 10:32:07 HR=66 bpm, GUSF=558/67 mmhg, LjW2=174.0 %, Resp=15 B/min, Cordero=2 10:35:07 HR=65 bpm, MFYO=772/68 mmhg, SpO2=99.0 %, Resp=21 B/min, Cordero=2 10:38:07 HR=66 bpm, IRHJ=257/70 mmhg, SpO2=99.0 %, Resp=14 B/min, Cordero=2 10:41:10 HR=66 bpm, CVLJ=930/65 mmhg, IlW0=256.0 %, Resp=26 B/min, Cordero=2 10:42:32 A WIRE, 3MMJ .035 180CM 180CM was inserted via Fem Art (right). After removing the current catheter a JR 4.0 INFINITI CATHETER FR 5 was advanced over a WIRE, 3 MMJ .035 180CM 10:43:16 180CM. 10:43:25 Wire removed 10:44:10 HR=66 bpm, LCHJ=187/68 mmhg, FiC8=118.0 %, Resp=28 B/min, Cordero=2 10:44:34 Catheter was removed 10:45:39 Prepping left radial at this time. Positive Allenst test per Ashleigh Sanders rn. 10:47:08 HR=70 bpm, LPCO=160/80 mmhg, XfH0=662.0 %, Resp=21 B/min, Cordero=2 5 mL 1% XYLOCAINE given in lab by Evangelist Jauregui in Left Radial via Subcutaneous. Ordered by Juventino 10:49:56 Evangelist. 10:50:10 HR=68 bpm, ZLAN=440/75 mmhg, SpO2=82.0 %, Resp=29 B/min, Cordero=2 10:51:38 Access site was Radial Artery. left A SHEATH, FR6 TRANSRADIAL SLENDER 10CM FR 6 was advanced into the Radial (left) using the Deb valdez 10:51:50 technique. 5 mL (Bolus) RADIAL COCKTAIL given in lab by Evangelist Jauregui via Radial. Using [Solution Name ]. Ordered by Eden 10:52:13 Evangelist Jones. 2mg verapamil, 2000units heparin, 200mcg Nitro. A JR 4.0 INFINITI CATHETER FR 5 was advanced over a wire. OMNIPAQUE, 350 MG, 150ML 150ML was us ed for 10:52:58 injections. 10:53:15 HR=68 bpm, DUIO=111/56 mmhg, Resp=18 B/min, Cordero=2 10:54:33 Catheter was removed 10:55:22 Case End 10:56:11 HR=67 bpm, HHCQ=429/66 mmhg, SpO2=94.0 %, Resp=20 B/min, Cordero=2 10:59:11 HR=64 bpm, UVJT=330/57 mmhg, SpO2=98.0 %, Resp=19 B/min, Cordero=2 11:02:05 HR=62 bpm, MXLU=494/69 mmhg, Resp=14 B/min, Cordero=2 Radial Compression Device Used. 12 mLs of air placed in BAND, RADIAL COMPRESSION TR SHORT 24 24 CM. Affected 11:04:45 hand 100 % O2 saturation. 11:05:09 HR=66 bpm, ZJET=884/69 mmhg, OyM0=919.0 %, Resp=19 B/min, Pain=0, Aidan=10, Cordero=2 11:05:51 Sheath removed; pressure applied to access site. 11:08:08 HR=49 bpm, PYTJ=267/72 mmhg, VaO2=360 %, Resp=14 B/min, Cordero=2 11:11:10 HR=24 bpm, ZISJ=129/72 mmhg, DmW3=058.0 %, Resp=14 B/min 11:12:48 No case complications noted. 11:12:49 Cine recording checked. 11:12:51 Bedside Report will be given. 11:12:57 Contrast Scanned 11:14:12 HR=66 bpm, IUOK=058/69 mmhg, NgG5=314 %, Resp=12 B/min, Pain=0, Aidan=10, Cordero=2 11:17:10 HR=68 bpm, TQNF=333/69 mmhg, RpU2=466 %, Resp=14 B/min, Pain=0, Aidan=10, Cordero=2 11:20:09 HR=71 bpm, OODS=613/71 mmhg, TuL5=212 %, Resp=15 B/min, Pain=0, Aidan=10, Cordero=2 11:23:09 HR=72 bpm, SPRG=704/74 mmhg, YeY3=287.0 %, Resp=15 B/min, Pain=0, Aidan=10, Cordero=2 11:25:45 Vitals capture stopped. Assessment: Final Case, HR=72 BPM, Rhythm=sr, DUAR=232/74 mmhg, Chest Pain=0, Edema=None, [place] r=Normal, Skin = Warm, Dry Right Pulses: Lasha Ped=d, Femoral=3 11:25:53 Left Pulses: Lasha Ped=d, Femoral=3 Neurological: State=Alert, Ox3, [place] Respiration: Resp=15 B/min, ZnS4=456 %, O2=2 lpm 11:26:32 Patient moved to stretcher 11:26:36 Clinical correlaton risk stratification. End Study - Contrast Media Used In Study Contrast Total Opened (mL) Total Used (mL) Total Wasted (mL) Omnipaque 70 70 0 End Study - Maximum Contrast Load Max Contrast Load (mL) 144.4 End Study - Radiation Exposure Fluoro Time (minutes) 15.0 End Study - Patient Disposition Complications Transferred To No Telemetry Bed
--- NOTE | 2017-10-03 11:58 | MA ---
cc: BETHJAMAR Gerardo DATE: 10/03/2017 DATE OF : 1940 PROCEDURE PERFORMED 1. Left heart catheterization. 2. Selective right and left coronary angiography. 3. Selective saphenous vein graft angiography for right common femoral artery angiography. INDICATIONS Chest pain. Positive stress test. PROCEDURE DESCRIPTION Consent was signed. The patient was prepped and draped in a sterile fashion. Using 1% lidocaine for local anesthesia and a micropuncture kit a 5 Kosovan sheath was inserted into the right common femoral artery. A right common femoral artery angiography was performed to confirm the position of the sheath then selective right and left coronary angiography was performed with a JR4 and a JL4 diagnostic catheter. This was followed by saphenous vein graft angiography with a JR4 and a multipurpose catheter. Angiography was taken in multiple views. The catheters were exchanged over a wire. There was a question that the patient had a VAZQUEZ to the LAD, known to have a left subclavian occlusion. For this reason we prepped and draped the left arm and then put a 6 Kosovan Slender sheath in the left radial artery. This was followed by selective angiography of the left subclavian with a JR4 diagnostic catheter. There was no VAZQUEZ to the LAD. The patient tolerated the procedure well without complications. Estimated blood loss was less than 30 cc. Total contrast was 70 cc. The right groin access site was closed with manual pressure and the left wrist with a TR band. RESULTS ANGIOGRAPHY 1. The right coronary artery is a dominant vessel which is 100% occluded. 2. The left main has a 40% lesion giving off the LAD, ramus and left circumflex arteries. 3. The LAD is 100% occluded in its midportion. 4. The left circumflex artery has a proximal 90% lesion and a distal 99% lesion. The first OM is occluded and by a graft. The OM3 is patent. 5. The ramus is small and patent. GRAFT ANGIOGRAPHY 1. The SVG to the right coronary artery is occluded. 2. The SVG to the diagonal is occluded. 3. The SVG to the LAD is patent. 4. The SVG to the OM1 is patent. 5. Of note there is a lesion in the mid LAD of around 70-75% right after the portion of the SVG to the LAD. The left ventricle was not crossed given the patient has a bioprosthetic aortic valve. CONCLUSIONS 1. Severe robinson coronary artery disease. 2. Patent 2/4 grafts. 3. Known to have severe LV systolic dysfunction. RECOMMENDATIONS The patient will go back to the DOC unit for post cath care. Will give IV hydration post cath. Will continue aggressive medical management for coronary artery disease. If the patient continues asymptomatic from a cardiac standpoint , will continue aggressive medical management. If he does not tolerate medications or worsens his symptoms, we can discuss the possibility of opening the total occlusion of the right coronary artery, the LAD stenosis and the OM1 stenosis, however his kidney function has been deteriorating which can be an issue for future interventions. Thank you for the opportunity to take part in the care of this patient. MD ESTER Valleoj/BT /11:07 AM /11:42 AM EDENILSON
--- NOTE | 2017-10-03 19:23 | EKG ---
Date Performed: 10/03/2017 Time Performed: 09:00:24 PTAGE: 77 years EKG: Sinus rhythm . Right bundle branch block Possible inferior infarct - age undetermined Lateral ST-T changes may be due to myocardial ischemia Abnormal ECG Since PREVIOUS TRACING , no significant change noted PREVIOUS TRACIN08/18/2017 01.24 DOCTOR: Karen Hu Interpretating Date/Time 10/03/2017 19:22:15
== END 2017-10-03 17:47 | disposition home or self-care (01) ==
LOC: HDOC 08:18 → HDIC 08:25 → HDOC 17:47
PROVIDERS: ATTEND Radiology Vascular & Interventional Radiology
DX: I25.10 Atherosclerotic heart disease of native coronary artery without angina pectoris (principal); I11.0 Hypertensive heart disease with heart failure; I50.9 Heart failure, unspecified; R94.39 Abnormal result of other cardiovascular function study; E78.5 Hyperlipidemia, unspecified; R56.9 Unspecified convulsions; Z95.1 Presence of aortocoronary bypass graft; Z86.73 Personal history of transient ischemic attack (TIA), and cerebral infarction without residual deficits
CPT/HCPCS: 80048; 85025; 85610; 85730; 93005; 93454; 99152; 99153; C1769; C1893; J1644; J2250; J3010; J7030; Q0163; Q9967